=== PATIENT | male | born 1970 | race Caucasian/White ===

== ENCOUNTER 2023-01-16 09:40 | Outpatient (OUT) | payer BC, SELFPAY ==
[2023-01-16 10:02] LABS: Basophils Absolute Auto 0.1 10^3/uL (0.0-0.1); Basophils Percent Auto 1.2 % (0.2-2.0); Eosinophils Absolute Auto 0.2 10^3/uL (0.0-0.7); Eosinophils Percent Auto 4.6 % (0.9-7.0); Hematocrit 43.1 % (42.0-54.0); Hemoglobin 14.5 g/dL (14.0-18.0); Immature Granulocytes Abs Auto 0.01 10^3/uL (0.00-0.03); Immature Granulocytes Pct Auto 0.2 % (0.0-0.5); Lymphocytes Absolute Auto 1.2 10^3/uL (1.2-3.8); Lymphocytes Percent Auto 24.6 % (20.5-60.0); Mean Corpuscular HGB Conc 33.6 g/dL (29.9-35.2); Mean Corpuscular Hemoglobin 30.7 pg (25.9-34.0); Mean Corpuscular Volume 91.1 fL (80.0-94.0); Mean Platelet Volume 10.7 fL (9.5-13.5); Monocytes Absolute Auto 0.4 10^3/uL (0.3-0.8); Monocytes Percent Auto 7.4 % (1.7-12.0); Neutrophils Absolute Auto 3.1 10^3/uL (1.4-6.5); Platelet Count 215 10^3/uL (150-450); Red Blood Count 4.73 10^6/uL (4.70-6.10); Red Cell Distribution Width 13.3 % (11.0-15.0)
[2023-01-16 10:08] LABS: Estimated Average Glucose 103 mg/dL; Glycohemoglobin A1C 5.2 % (4.5-6.2)
[2023-01-16 10:54] LABS: Alanine Aminotransferase 82 U/L (16-63); Albumin Globulin Ratio 1.3; Albumin Level 4.4 g/dL (3.4-5.0); Alkaline Phosphatase 49 U/L (46-116); Anion Gap 15.6; Aspartate Amino Transferase 30 U/L (15-37); BUN Creatinine Ratio 17.2; Bilirubin Total 0.7 mg/dL (0.2-1.0); Calcium 8.9 mg/dL (8.5-10.1); Carbon Dioxide 26.4 mmol/L (21.0-32.0); Chloride 102 mmol/L (98-107); Chol HDL Ratio 6.2; Cholesterol 262 mg/dL (<=200); Estimated GFR (African America >60 (>=60); Estimated GFR (Non-African Ame >60 (>=60); Globulin 3.3 g/dL; Glucose 102 mg/dL (74-106); HDL Cholesterol 42 mg/dL (40-60); Sodium 140 mmol/L (136-145); Thyroid Stimulating Hormone 2.811 uIU/mL (0.358-3.740); Total Protein 7.7 g/dL (6.4-8.2); Triglycerides 236 mg/dL (<=150); VLDL CHOLESTEROL 47.2 mg/dL
[2023-01-16 11:00] LABS: Prostate Specific Antigen Scrn 2.86 ng/mL (<=4.00)
== END 2023-01-16 09:41 | disposition home or self-care (01) ==
LOC: LAB 09:46
PROVIDERS: PCP Family Medicine; Visit Provider Family Medicine
DX: Z00.00 Encounter for general adult medical examination without abnormal findings (principal)
CPT/HCPCS: 36415; 80053; 80061; 83036; 84436; 84443; 84481; 85025; G0103

== ENCOUNTER 2023-01-17 16:01 | Outpatient (REF) | payer BC, SELFPAY ==
[2023-01-18 14:14] LABS: Occult Blood Negative
== END 2023-01-17 16:02 | disposition home or self-care (01) ==
LOC: LAB 16:01
PROVIDERS: PCP Family Medicine; Visit Provider Family Medicine
DX: Z00.00 Encounter for general adult medical examination without abnormal findings (principal)
CPT/HCPCS: G0328

== ENCOUNTER 2023-08-03 14:39 | Outpatient (OUT) | payer BC, SELFPAY | END 2023-08-03 14:40 | disposition home or self-care (01) | LOC: PST 14:39 | PROVIDERS: PCP Family Medicine; Visit Provider Surgery | DX: Z01.818 Encounter for other preprocedural examination (principal); Z12.11 Encounter for screening for malignant neoplasm of colon ==

== ENCOUNTER 2023-08-09 09:10 | Day surgery (SDC) | payer BC, SELFPAY ==
--- NOTE | 2023-08-09 | OP_ITS ---
OPERATION DATE: 08/09/2023 PREOPERATIVE DIAGNOSIS: Colorectal screening. POSTOPERATIVE DIAGNOSIS: Normal colonoscopy to cecum. PROCEDURE: Colonoscopy to cecum. SURGEON: Álvaro Norris M.D. ANESTHESIA: Monitored anesthesia care. ESTIMATED BLOOD LOSS: Zero. INDICATIONS AND CONSENT: Patient is a 53-year-old male who presents for colorectal screening. Indications, risks, benefits, alternatives of proceeding with colonoscopy were explained extensively to the patient, including the risks of bleeding, colon perforation or anesthetic complications. All of his questions were answered. Informed consent was obtained. PROCEDURE: Patient brought to the operating room, placed in the left lateral decubitus position. Monitored anesthesia care was provided. Rectal exam was performed which showed no masses or blood. The scope was inserted into the anal canal. Under direct visualization was advanced. With the aid of abdominal compression, it was advanced to the cecum where cecal markings were clearly identified. There was noted to be a good prep. Upon withdrawal of the scope, mucosal surfaces were carefully examined. There were no mass lesions or polyps. No inflammatory changes or ulcerations. No significant diverticulosis. The scope was retroflexed in the anal canal. There were noted to be some prominent rectal veins. The scope was then withdrawn. Patient tolerated procedure well, was sent to recovery room in good condition. Follow up screening colonoscopy should be in 10 years. CC: Adelfo Garibay M.D. JONNY
[2023-08-09 09:15] VITALS: BP 128/92; PULSE 87; TEMP 35.9; O2SAT 97; BMI 32.1
--- OUTSIDE RECORDS SUMMARY | 2023-08-09 09:20 | XMS_ITS ---
Patient Summarization (C-CDA 2.1 CCD) Created on: August 09, 2023 KENNY DEL RIO : 1970 Sex: Male Author Organization Sample organization Care Team Providers Care Electronic Publications Specialist Name Role Phone Yolanda Olguin Primary Care Provider ENRIQUE THOMSON Referring Unavailable YOLANDA OLGUIN Primary Care Unavailable CASSANDRA SAAVEDRA Admitting Unavailable CASSANDRA SAAVEDRA Attending Unavailable JOSEFA, DR KIDD Consulting Unavailable CASSANDRA SAAVEDRA Consulting Unavailable Cathleen Miller Consulting Unavailable JUAN, DR COTE Admitting Unavailable JUAN, DR COTE Attending Unavailable JUAN, DR COTE Consulting Unavailable SHERIDAN, DR SYED Goodson Consulting Unavailable GREY, DR ARAVIND Goodson Admitting Unavailable GREY, DR ARAVIND Goodson Attending Unavailable GREY, DR ARAVIND Goodson Consulting Unavailable SHERIDAN, DR SYED Goodson Consulting Unavailable RYNE NEUMANN Consulting Unavailable YOLANDA OLGUIN Primary Care Physician Alyse Sanford Primary Care Physician Unavailab Alyse Black Unavailable Unavailable Adelfo Garibay Primary Care Physician Enrique SÁNCHEZ Attending Unavailable Adelfo Garibay Referring Unavailable Encounters Encounter Date Encounter Type Care Provider Facility Start: 06-21-2023 End: 06-22-2023 ambulatory Enrique SÁNCHEZ Facility:[facility] Start: 06-21-2023 End: 06-21-2023 Patient encounter procedure Enrique SÁNCHEZ [facility] Start: 06-01-2023 Office outpatient ne w 30 minutes Alyse Sanford Other [facility] Office Start: 05-18-2023 ambulatory Enrique SÁNCHEZ Facility:[facility] Start: 10-20-2021 End: 10-20-2021 Patient encounter procedure CLEO HEALY [facility] [place] Start: 07-08-2021 End: 07-08-2021 ambulatory CASSANDRA SAAVEDRA Facility:[facility] Start: 02-22-2021 End: 02-23-[address] KERA MARTINEZ Facility:[facility] Start: 02-17-2021 End: 02-17-[address] ARAVIND EDMONDS Facility:[facility] Start: 01-14-2019 End: 01-15-2019 Patient encounter procedure ENRIQUE THOMSON [facility] Start: 01-14-2019 End: 01-14-2019 Subsequent hospital visit by physician Yolanda SANTACRUZ Laboratory Immunizations Immunization Date Immunization Notes Care Provider Jay mcpherson 12-28-2022 influenza virus vaccine, unspecified formulation Enrique SÁNCHEZ [facility] 03-03-2021 SARS-CoV-2 (COVID-19 ) mRNA-1273 vaccine Enrique GONZALO [facility] 02-03-2021 SARS-CoV-2 (COVID-19 ) mRNA-1273 vaccine Enrique PATELMarley [facility] Comment on above: Result Comment: 2023: TPV50 Medications Current Medications Medication Drug Class(es) Dates Sig (Normalized) Sig (Original) acetaminophen 325 mg / HYDROcodone bitartrate 5 mg oral tablet (1 source) Opioid Agonist Start: 02-22-2021 acetaminophen-hyd rocodone 325 mg-5 mg oral tablet Refill(s) 0, 20 tab(s) Start Date: 02/22/21 Status: Ordered levoFLOXacin 750 mg oral tablet (1 source) Quinolone Antimicrobial Start: 02-22-2021 levofloxacin 750 mg Tab 7 tab(s), Refills(s) 0 Start Date: 02/22/21 Status: Ordered ondansetron 4 mg disintegrating oral tablet (1 source) Serotonin-3 Receptor Antagonist Start: 02-22-2021 ondansetron 4 mg Dis Tab 10 tab(s), Refills(s) 0 Start Date: 02/22/21 Status: Ordered 72 hr scopolamine 0.0139 mg/hr transdermal system (1 source) Anticholinergic Start: 03-02-2018 scopolamine (TRANSDERM-SCOP) transdermal patch Place 1 patch onto the skin every 72 hours 3 patch 0 03/02/2018 Active simvastatin 20 mg oral tablet (1 source) HMG-CoA Reductase Inhibitor Start: 05-22-2023 take 1 tablet by mouth once daily in the evening simvastatin 20 mg Tab 20 mg = 1 tab(s), Oral, qPM, Refills(s) 0 Start Date: 05/22/23 Status: Ordered tamsulosin hydrochloride 0.4 mg oral capsule (1 source) alpha-Adrenergic Amando Start: 02-22-2021 tamsulosin 0.4 mg Cap 5 cap(s), Refills(s) 0 Start Date: 02/22/21 Status: Ordered Completed/Discontinued Medications Medication Drug Class(es) Dates Sig (Normalized) Sig (Original) cholesterol medication (1 source) cholesterol medi cation 1 daily in evening Payers Date Payer Category Payer Unknown [id number] 2.16.84 [id number] 1970 Unknown [id number] 2.16.84 [id number] 1970 Unknown [id number] 2.16.84 [id number] 1970 Unknown [id number] 1959 Unknown [id number] 1959 Unknown [id number] Plan of Treatment Date Care Activity Detail Author Start: 11-04-2018 Influenza vaccination Flu vaccine (# 1) [place], [place] Start: 2010 Lipid screen Lipid screen [place], [place] Start: 1989 DTaP/Tdap/Td vaccine (1 - Tdap) DTaP/Tdap/Td vaccine (1 - Tdap) [place], [place] Start: 1985 HIV screen HIV screen [place], [place] End: 01-14-2019 Mumps Antibody, IgG Mumps Antibody, IgG Lab Routine Once for 1 Occurrences starting 01/14/2019 until 01/14/2019 [place] Comment on above: Once for 1 Occurrenc es starting 01/14/2019 until 01/14/2019 Mumps Antibody, IgG Mumps Antibo dy, IgG Lab Routine 01/14/2019 3:03 PM [place], [place] End: 01-14-2019 Rubeola Antibody, IgG Rubeola Antibody, IgG Lab Routine Once for 1 Occurrences starting 01/14/2019 until 01/14/2019 [place] Comment on above: Once for 1 Occurrenc es starting 01/14/2019 until 01/14/2019 Rubeola Antibody, IgG Rubeola An tibody, IgG Lab Routine 01/14/2019 3:03 PM [place] End: 01-14-2019 Tb antigen response gamma interferon t-cell susp T-Spot TB Test Lab Routine Once for 1 Occurrences starting 01/14/2019 until 01/14/2019 [place] Comment on above: Once for 1 Occurrenc es starting 01/14/2019 until 01/14/2019 Tb antigen response gamma interferon t-cell susp T-Spot TB Test Lab Routine 01/14/2019 3:03 PM [place] End: 01-14-2019 Varicella Zoster Antibody, IgG Varicella Zoster Antibody, IgG Lab Routine Once for 1 Occurrences starting 01/14/2019 until 01/14/2019 [place] Comment on above: Once for 1 Occurrenc es starting 01/14/2019 until 01/14/2019 Varicella Zoster Antibody, IgG Varicella Zoster Antibody, IgG Lab Routine 01/14/2019 3:03 PM [place] Problems Problem Classification Problem Date Documented Date Episodic/Chronic Abdominal pain (3 sources) Unspecified abdominal pain; Translations: [UNSPECIFIED ABDOMINAL PAIN] Onset: 07-08-2021 Episodic Allergic reactions (1 source) Other skin changes due to chronic exposure to nonionizing radiation Onset: 06-01-2023 Episodic Calculus of urinary tract (3 sources) Personal history of urinary calculi; Translations: [Kidney stone] Onset: 07-12-2021 02-22-2021 Episodic Disorders of lipid metabolism (3 sources) Hyperlipidemia; Translations: [Pure hypercholesterolemia, unspecified] Onset: 08-24-2015 08-24-2015 Chronic Hyperplasia of prostate (2 sources) Benign prostatic hypertrophy without outflow obstruction 02-22-2021 Chronic Other and unspecified benign neoplasm (1 source) Melanocytic nevi, unspecified Onset: 06-01-2023 Episodic Other diseases of kidney and ureters (4 sources) Hydronephrosis with renal and ureteral calculous obstruction; Translations: [HYDRONPHROS RENL AND URETRL CALCUL OBST] Onset: 02-22-2021 Episodic Other diseases of kidney and ureters (2 sources) Hydronephrosis 02-22-2021 Episodic Other nutritional; endocrine; and metabolic disorders (1 source) Body mass index 30+ - obesity 06-21-2023 Chronic Other nutritional; endocrine; and metabolic disorders (1 source) Obesity 05-22-2023 Chronic Other screening for suspected conditions (not mental disorders or infectious disease) (1 source) Screening for malignant neoplasm of colon done; Translations: [Encounter for screening for malignant neoplasm of colon] Onset: 06-21-2023 Episodic Other skin disorders (1 source) Other melanin hyperpigmentation Onset: 06-01-2023 Episodic Other skin disorders (1 source) Other seborrheic keratosis Onset: 06-01-2023 Episodic Unclassified (1 source) Patient encounter status 06-21-2023 Procedures Date Procedure Procedure Detail Performing Clinician Start: 01-14-2019 Antibody mumps ENRIQUE THOMSON Start: 01-14-2019 Antibody rubeola MICHAE Marley THOMSON Start: 01-14-2019 Antibody varicella-zoster ENRIQUE THOMSON Start: 01-14-2019 Immunoassay infectio us agent antibody delicia nos ENRIQUE THOMSON Start: 01-14-2019 Tb antigen response gamma interferon t-cell susp ENRIQUE THOMSON Start: 01-14-2019 Immunoassay infectio us agent antibody delicia nos Enrique Thomson Work Phone: Arthroscopy of knee Enrique SÁNCHEZ Tonsillectomy CLEO MONET Results Test Name Value Interpretation Reference Range Facility Insurance Correspondenceon 0 07-26-2023 Insurance Correspondence [id number]#[id number] TIFF Normal [facility] Consent for Procedure/Surger yon 06-22-2023 Consent for Procedure/Surgery [id number] IFF Normal [facility] Ambulatory Visit Summaryon 0 06-21-2023 Ambulatory Visit Summary KENNY DEL RIO :1970 Visit Date:06/21/2023 Ambulatory Visit Instructions Your Diagnosis Screening for malignant neoplasm of colon Your Care Team Attending Physician - GONZALO PERSON, Enrique Goodson Primary Care Physician - Lani PERSON, Adelfo Referring Physician - Adelfo Garibay MD This Is Your Medications List Contact prescribing physician if questions or concerns simvastatin (simvastatin 20 mg Tab) Procedures Performed Arthroscopy of knee, Tonsillectomy. Discharge Vitals Heart Rate (Peripheral) 76 Respiratory Rate 16 Blood Pressure 120/84 Height 182.8 cm Height 72 in Weight 112 kg Weight 246.4 lb BMI 33.52 Medications What How Much When Instructions Unchanged simvastatin (simvastatin 20 mg Tab) 1 Tablets By Mouth Once a day (in the evening) Contact prescribing physician if questions or concerns Allergies No Known Allergies Problems Ongoing - Any problem that you are currently receiving treatment for. BMI 33.0-33.9,adult BPH without urinary obstruction Kidney stone Obesity Pure hypercholesterolemia Screening for malignant neoplasm of colon Ureteral stone with hydronephrosis Patient Survey You may receive a survey via text or e-mail asking about your office visit. Please share your experience with us by completing your survey. We appreciate your feedback and thank you for choosing us for your care. Normal [facility] Facesheeton 06-21-2023 Facesheet [id number]#[id number] TIFF Normal [facility] No Panel Informationon 05-31 Tobacco smoking status Non-Smoker Invalid Interpretation Code [facility] Novasentis Physician Referralon 024 Physician Referral [id number] IFF Normal [facility] CBC AUTO DIFFon 07-08-2021 BASO # 0.1 103/ul Normal 0.0-0.1 [facility] Comment on above: Performed By: #### C BC ####[facility] [address] [place] [id number]. Jorge Dominguez Basophils/100 WBC (Bld) 0.5 % Normal 0.2-2.0 [facility] Comment on above: Performed By: #### C BC ####[facility] [address] [place] [id number]. Jorge Dominguez EO # 0.1 103/ul Normal 0.0-0.7 [facility] Comment on above: Performed By: #### C BC ####[facility] [address] [place] [id number]. Jorge Dominguez Eosinophils/100 WBC (Bld) 0.9 % Normal 0.9-7.0 [facility] Comment on above: Performed By: #### C BC ####[facility] [address] [place], [place] [address]Dr. Jorge Dominguez Erythrocyte distribution width (RBC) [Ratio] 13.0 % Normal 11.0-15.0 [facility] Comment on above: Performed By: #### C BC ####[facility] [address] [place], [place] [id number]. Jorge Dominguez Hematocrit (Bld) [Volume fraction] 43.4 % Normal 42.0-54.0 [facility] Comment on above: Performed By: #### C BC ####[facility] [address] [place], [place] [id number]. Jorge Dominguez Hemoglobin (Bld) [Mass/Vol] 14.9 g/dL Normal 14.0-18.0 [facility] Comment on above: Performed By: #### C BC ####[facility] [address] [place] [id number]. Jorge Dominguez IG # 0.04 10e3/ul Critically high 0.00-0.[address] [facility] Comment on above: Performed By: #### C BC ####[facility] [address] [place], [place] [address]Dr. Jorge Dominguez IG % 0.4 % Normal 0.0-0.5 [facility] Comment on above: Performed By: #### C BC ####[facility] [address] [place] [id number]. Jorge Dominguez LYMPH # 1.0 103/ul Critically low 1.2-3.[address] [facility] Comment on above: Performed By: #### C BC ####[facility] [address] [place] [id number]. Jorge Dominguez Lymphocytes/100 WBC (Bld) 9.1 % Critically low 20.5-60.0 [facility] Comment on above: Performed By: #### C BC ####[facility] [address] [place] [id number]. Jorge Dominguez MANUAL DIFF REQ NO Normal [facility] Comment on above: Performed By: #### C BC ####[facility] [address] [place] [id number]. Jorge Dominguez MCH (RBC) [Entitic mass] 30.8 pg Normal 25.9-34.0 [facility] Comment on above: Performed By: #### C BC ####[facility] [address] [place] [id number]. Jorge Dominguez MCHC (RBC) [Mass/Vol] 34.3 g/dL Normal 29.9-35.2 [facility] Comment on above: Performed By: #### C BC ####[facility] [address] [place] [id number] Dominguez MCV (RBC) [Entitic vol] 89.7 fL Normal 80.0-94.0 [facility] Comment on above: Performed By: #### C BC ####[facility] [address] [place] [id number] Dominguez MONO # 0.4 103/ul Normal 0.3-0.8 [facility] Comment on above: Performed By: #### C BC ####[facility] [address] [place] [id number]. Jorge Dominguez Monocytes/100 WBC (Bld) 4.1 % Normal 1.7-12.0 [facility] Comment on above: Performed By: #### C BC ####[facility] [address] [place] [id number]. Jorge Dominguez NEUT # 9.0 103/ul Critically high 1.4-6.5 [facility] Comment on above: Performed By: #### C BC ####[facility] [address] [place] [id number]. Jorge Dominguez Neutrophils/100 WBC (Bld) 85.0 % Critically high 43.0-75.0 [facility] Comment on above: Performed By: #### C BC ####[facility] [address] [place] [address]Dr. Jorge Dominguez Platelet mean volume (Bld) [Entitic vol] 10.8 fL Normal 9.5-13.5 [facility] Comment on above: Performed By: #### C BC ####[facility] [address] [place] [address]Dr. Jorge Dominguez PLT 210 103/ul Normal 150-450 [facility] Comment on above: Performed By: #### C BC ####[facility] [address] [place] [id number]. Jorge Dominguez RBC 4.84 106/ul Normal 4.70-6.10 [facility] Comment on above: Performed By: #### C BC ####[facility] [address] [place], [place] [address]Dr. Jorge Dominguez WBC 10.6 103/ul Normal 4.0-11.0 [facility] Comment on above: Performed By: #### C BC ####[facility] [address] [place], [place] [address]Dr. Jorge Dominguez CT ABD/PELVIS WO CONon 07-08 CT ABD/PELVIS WO CON CT ABD/PELVIS WO CO N: 07/08/2021 4:29 AM EDT CLINICAL HISTORY: 51 years old Male with CALCULUS OF KIDNEY. TECHNIQUE: Axial CT images through the abdomen and pelvis are obtained without the intravenous administration of contrast. Coronal and sagittal reformations are also obtained. Dose reduction techniques were achieved by using automated exposure control and/or adjustment of mA and/or kV according to patient size and/or use of iterative reconstruction technique. COMPARISON: CT performed 02/17/2021. FINDINGS: The lung bases are clear with no dependent infiltrate or effusion. Without the use of IV or oral contrast the study is limited by incomplete evaluation of the blood vessels, solid visceral organs and bowel. The liver, spleen, pancreas and bilateral adrenal glands are unremarkable. 6 mm cholelith is present at the gallbladder neck with the gallbladder nondistended. No intrahepatic or extra hepatic biliary ductal dilatation. 3 mm nonobstructing right renal calculus is present. There is no right hydronephrosis. The right ureter is normal in course and caliber without calculus or dilatation. A few punctate nonobstructing left renal calculi are present with mild left hydronephrosis with significant perinephric stranding and stranding about the right ureter and retroperitoneum with 3 mm calculus at the left ureterovesicular junction. The stomach and small bowel are unremarkable. The appendix is visualized without inflammatory change. The colon is unremarkable. Fat-containing periumbilical hernia is present. The bladder appears unremarkable. There is no evidence of aortic aneurysm. No enlarged lymph nodes are seen. No free air or free fluid is seen. The prostate gland is within normal limits. The osseous structures appear unremarkable. IMPRESSION: 1. Bilateral nonobstructing renal calculi with mild left hydronephrosis with significant periureteral stranding and retroperitoneal stranding with 3 mm obstructing calculus at the ureterovesicular junction. 2. Cholelithiasis without evidence of acute cholecystitis. Electronically authenticated by: CATHLEEN MILLER Date: 2021-07-08 05:16 Normal [facility] ER URINE PROFILEon 2 Bilirubin Ql (U) Negative Normal NEGATIVE [facility] Comment on above: Performed By: #### U MICRO, ERUR #### [facility] [address] [address] [address] Jorge Dominguez Clarity (U) CLEAR Normal CLEAR [facility] Comment on above: Performed By: #### U MICRO, ERUR #### [facility] [address] [place], [place] [address] Dr. Jorge Dominguez Color (U) LT. YELLOW Normal YELLOW [facility] Comment on above: Performed By: #### U MICRO, ERUR #### [facility] [address] [address] [address] Jorge MURRAY A micrscopic examination will be performed if indicated. Normal [facility] Comment on above: Performed By: #### U MICRO, ERUR #### [facility] [address] [address] [address] Jorge Dominguez Glucose Ql (U) Negative Normal NEGATIVE [facility] Comment on above: Performed By: #### U MICRO, ERUR #### [facility] [address] [address] [address] Jorge Dominguez Hemoglobin Ql (U) LARGE Abnormal NEGATIVE [facility] Comment on above: Performed By: #### U MICRO, ERUR #### [facility] [address] [address] [address] Jorge Dominguez Ketones Ql (U) TRACE Abnormal NEGATIVE [facility] Comment on above: Performed By: #### U MICRO, ERUR #### [facility] [address] [address] [address] Jorge Dominguez LEUKOCYTES Negative Normal NEGATIVE [facility] Comment on above: Performed By: #### U MICRO, ERUR #### [facility] [address] [address] [address] Jorge Dominguez Nitrite Ql (U) Negative Normal NEGATIVE [facility] Comment on above: Performed By: #### U MICRO, ERUR #### [facility] [address] [address] [address] Jorge Dominguez pH (U) 5.5 [pH] Normal 5-9 [facility] Comment on above: Performed By: #### U MICRO, ERUR #### [facility] [address] [address] [address] Jorge Dominguez SPEC GRAVITY >=1.030 Abnormal 1.005-<=1.02 5 [facility] Comment on above: Performed By: #### U MICRO, ERUR #### [facility] [address] [address] [address] Jorge Dominguez UA PROTEIN Negative Normal NEGATIVE/ TRACE [facility] Comment on above: Performed By: #### U MICRO, ERUR #### [facility] [address] [place] [address] Dr. Jorge Dominguez UR MICRO IND INDICATED Normal [facility] Comment on above: Performed By: #### U MICRO, ERUR #### [facility] [address] [place] [address] Dr. Jorge Dominguez Urobilinogen Qn (U) 0.2 {Julee'U}/dL Normal 0.2 - 1. 0 [facility] Comment on above: Performed By: #### U MICRO, ERUR #### [facility] [address] [place] [address] Dr. Jorge Dominguez LACTATE/LACTIC ACIDon 2021 Lactate [Moles/Vol] 2.1 mmol/L Critically high 0.4-2.0 [facility] Comment on above: Performed By: #### L ACT #### [facility] [address] [place] [address] Dr. Jorge Dominguez Lactate [Moles/Vol] 1.7 mmol/L Normal 0.4-2.0 [facility] Comment on above: Performed By: #### L ACT #### [facility] [address] [place] [address] Dr. Jorge Dominguez PROF CHEM 8 (BAS METB)on Anion gap [Moles/Vol] 13.8 mmol/L Normal [facility] Comment on above: Performed By: #### B MP #### [facility] [address] [place] [address] Dr. Jorge Dominguez Calcium [Mass/Vol] 9.4 mg/dL Normal 8.5-10.1 [facility] Comment on above: Performed By: #### B MP #### [facility] [address] [place] [address] Dr. Jorge Dmoinguez Chloride [Moles/Vol] 104 mmol/L Normal 98-107 [facility] Comment on above: Performed By: #### B MP #### [facility] [address] [place] [address] Dr. Jorge Dominguez CO2 [Moles/Vol] 24.3 mmol/L Normal 21.0-32.0 [facility] Comment on above: Performed By: #### B MP #### [facility] [address] [address] [address] Jorge Dominguez Creatinine [Mass/Vol] 1.32 mg/dL Critically high 0.70-1.30 [facility] Comment on above: Performed By: #### B MP #### [facility] [address] [address] [address] Jorge Dominguez EGFR-AF TANZANIAN >60 Normal >=60 [facility] Comment on above: Performed By: #### B MP #### [facility] [address] [address] [address] Jorge Dominguez EGFR-NON AF TANZANIAN 57 mL/min/1.73m2 Critically low >=60 [facility] Comment on above: Performed By: #### B MP #### [facility] [address] [address] [address] Jorge Dominguez Glucose [Mass/Vol] 166 mg/dL Critically high 74-106 [facility] Comment on above: Performed By: #### B MP #### [facility] [address] [address] [address] Jorge Dominguez Potassium [Moles/Vol] 4.1 mmol/L Normal 3.5-5.1 [facility] Comment on above: Performed By: #### B MP #### [facility] [address] [address] [address] Jorge Dominguez Sodium [Moles/Vol] 138 mmol/L Normal 136-145 [facility] Comment on above: Performed By: #### B MP #### [facility] [address] [address] [address] Jorge Dominguez Urea nitrogen [Mass/Vol] 16.0 mg/dL Normal 7.0-18.0 [facility] Comment on above: Performed By: #### B MP #### [facility] [address] [address] [address] Jorge Dominguez Urea nitrogen/Creatinine [Mass ratio] 12.1 mg/mg Normal [facility] Comment on above: Performed By: #### B MP #### [facility] [address] [place] [address] Dr. Jorge Dominguez URINE MICROSCOPIC ONLYon BACTERIA TRACE Abnormal NONE SEEN [facility] Comment on above: Performed By: #### U MICRO, ERUR #### [facility] [address] [place] [address] Dr. Jorge Dominguez Bacteria identified Cx Nom (U) NOT INDICATED Normal [facility] Comment on above: Performed By: #### U MICRO, ERUR #### [facility] [address] [place] [address] Dr. Jorge Dominguez CAST NONE SEEN Normal NONE SEEN [facility] Comment on above: Performed By: #### U MICRO, ERUR #### [facility] [address] [place] [address] Dr. Jorge Dominguez Crystals LM Nom (Urine sed) NONE SEEN Normal NONE SEEN [facility] Comment on above: Performed By: #### U MICRO, ERUR #### [facility] [address] [place] [address] Dr. Jorge Dominguez Epithelial cells LM Ql (Urine sed) FEW Abnormal NONE SEEN /RARE [facility] Comment on above: Performed By: #### U MICRO, ERUR #### [facility] [address] [place] [address] Dr. Jorge Dominguez MUCOUS TRACE Abnormal NONE SEEN [facility] Comment on above: Performed By: #### U MICRO, ERUR #### [facility] [address] [place] [address] Dr. Jorge Dominguez RBC 5-10 Abnormal 0-2 [facility] Comment on above: Performed By: #### U MICRO, ERUR #### [facility] [address] [place] [address] Dr. Jorge Dominguez WBC 0-2 Abnormal NONE SEEN [facility] Comment on above: Performed By: #### U MICRO, ERUR #### [facility] [address] [place] [address] Dr. Jorge Dominguez PSA SCREENING LABCORPon 02-04 Prostate specific Ag [Mass/Vol] 2.4 ng/mL Normal 0.0-4.0 [facility] Comment on above: Result Comment: Nhi GUTIERREZ methodology. . According to the [employer], Serum PSA should decrease and remain at undetectable levels after radical prostatectomy. The AUA defines biochemical recurrence as an initial PSA value 0.2 ng/mL or greater followed by a subsequent confirmatory PSA value 0.2 ng/mL or greater. Values obtained with different assay methods or kits cannot be used interchangeably. Results cannot be interpreted as absolute evidence of the presence or absence of malignant disease. Performed By: #### P SASCLC ####[facility] [id number] [place] [id number] Dominguez XR KUB 1 VIEWon 02-22-2021 XR KUB 1 VIEW EXAMINATION: XR KUB 1 VIEW HISTORY: Kidney stone ; acute right lower abdominal pain COMPARISON: CT abdomen pelvis 02/17/2021 FINDINGS: KIDNEY/URETER - RIGHT: No visible renal or ureteral calcifications. KIDNEY/URETER - LEFT: No visible renal or ureteral calcifications. PELVIS: No visible ureteral stones. No pelvic calcifications. BOWEL: No abnormal dilation or deviation. BONES: No acute abnormality. OTHER: Negative. No abnormal gaseous collections. IMPRESSION: 1. No appreciable urinary tract calculi. Suspect passage of previously seen distal right ureteral stone. Electronically authenticated by: SYED SWARTZ Date: 2021-02-22 16:11 Normal [facility] AMYLASEon 02-17-2021 Amylase [Catalytic activity/Vol] 65 U/L Normal 31-110 [facility] Comment on above: Performed By: #### L IPA, WILLA ####[facility] [id number] [place] [id number] Dominguez CBC AUTO DIFFon 02-17-2021 BASO # 0.1 103/ul Normal 0.0-0.1 [facility] Comment on above: Performed By: #### C BC #### [facility] [address] [place], [place] [address] Dr. Jorge Dominguez Basophils/100 WBC (Bld) 0.6 % Normal 0.2-2.0 [facility] Comment on above: Performed By: #### C BC #### [facility] [address] [place] [address] Dr. Jorge Dominguez EO # 0.3 103/ul Normal 0.0-0.7 [facility] Comment on above: Performed By: #### C BC #### [facility] [address] [place] [address] Dr. Jorge Dominguez Eosinophils/100 WBC (Bld) 3.9 % Normal 0.9-7.0 [facility] Comment on above: Performed By: #### C BC #### [facility] [address] [place] [address] Dr. Jorge Dominguez Erythrocyte distribution width (RBC) [Ratio] 13.1 % Normal 11.0-15.0 [facility] Comment on above: Performed By: #### C BC #### [facility] [address] [place] [address] Dr. Jorge Dominguez Hematocrit (Bld) [Volume fraction] 43.3 % Normal 42.0-54.0 [facility] Comment on above: Performed By: #### C BC #### [facility] [address] [place] [address] Dr. Jorge Dominguez Hemoglobin (Bld) [Mass/Vol] 14.7 g/dL Normal 14.0-18.0 [facility] Comment on above: Performed By: #### C BC #### [facility] [address] [place] [address] Dr. Jorge Dominguez IG # 0.03 10e3/ul Normal 0.00-0.03 [facility] Comment on above: Performed By: #### C BC #### [facility] [address] [place] [address] Dr. Jorge Dominguez IG % 0.4 % Normal 0.0-0.5 [facility] Comment on above: Performed By: #### C BC #### [facility] [address] [place] [address] Dr. Jorge Dominguez LYMPH # 1.2 103/ul Normal 1.2-3.8 [facility] Comment on above: Performed By: #### C BC #### [facility] [address] [place] [address] [address] Jorge Dominguez Lymphocytes/100 WBC (Bld) 14.8 % Critically low 20.5-60.0 [facility] Comment on above: Performed By: #### C BC #### [facility] [address] [address] [address] Jorge Dominguez MANUAL DIFF REQ NO Normal [facility] Comment on above: Performed By: #### C BC #### [facility] [address] [place] [address] Dr. Jorge Dominguez MCH (RBC) [Entitic mass] 30.6 pg Normal 25.9-34.0 [facility] Comment on above: Performed By: #### C BC #### [facility] [address] [place] [address] Dr. Jorge Dominguez MCHC (RBC) [Mass/Vol] 33.9 g/dL Normal 29.9-35.2 [facility] Comment on above: Performed By: #### C BC #### [facility] [address] [place] [address] Dr. Jorge Dominguez MCV (RBC) [Entitic vol] 90.0 fL Normal 80.0-94.0 [facility] Comment on above: Performed By: #### C BC #### [facility] [address] [place] [address] Dr. Jorge Dominguez MONO # 0.5 103/ul Normal 0.3-0.8 [facility] Comment on above: Performed By: #### C BC #### [facility] [address] [place] [address] Dr. Jorge Dominguez Monocytes/100 WBC (Bld) 6.1 % Normal 1.7-12.0 [facility] Comment on above: Performed By: #### C BC #### [facility] [address] [place] [address] Dr. Jorge Dominguez NEUT # 6.2 103/ul Normal 1.4-6.5 [facility] Comment on above: Performed By: #### C BC #### [facility] [address] [place] [address] Dr. Jorge Dominguez Neutrophils/100 WBC (Bld) 74.2 % Normal 43.0-75.0 [facility] Comment on above: Performed By: #### C BC #### [facility] [address] [place] [address] Dr. Jorge Dominguez Platelet mean volume (Bld) [Entitic vol] 10.8 fL Normal 9.5-13.5 [facility] Comment on above: Performed By: #### C BC #### [facility] [address] [place] [address] Dr. Jorge Dominguez PLT 230 103/ul Normal 150-450 [facility] Comment on above: Performed By: #### C BC #### [facility] [address] [place] [address] Dr. Jorge Dominguez RBC 4.81 106/ul Normal 4.70-6.10 [facility] Comment on above: Performed By: #### C BC #### [facility] [address] [place] [address] Dr. Jorge Dominguez WBC 8.4 103/ul Normal 4.0-11.0 [facility] Comment on above: Performed By: #### C BC #### [facility] [address] [place] [address] ABD/PELV W CONon 15-[address] ABD/PELV W CON EXAMINATION: CT ABD/PELV W CON HISTORY: ABDOMINAL DISTENSION (GASEOUS) ; right lower quadrant pain COMPARISON: No relevant comparison available. TECHNIQUE: Axial, Coronal, and Sagittal images were created with IV contrast. Dose reduction techniques were achieved by using automated exposure control and/or adjustment of mA and/or kV according to patient size and/or use of iterative reconstruction technique. FINDINGS: LUNG BASES: No visible pulmonary or pleural disease. LIVER: No enlargement, atrophy, abnormal density, or significant focal lesion. BILIARY: Small stone within the noninflamed gallbladder. PANCREAS: No lesion, fluid collection, ductal dilatation, or atrophy. SPLEEN: No enlargement or focal lesion. ADRENALS: No mass or enlargement. KIDNEYS: Right hydronephrosis with perinephric edema secondary to an obstructing 6 x 5 x 4 mm stone within distal ureter at the ureterovesical junction. Additional nonobstructing 2 mm stone within right kidney. BOWEL/MESENTERY: No bowel wall thickening, abnormal dilation, or obstruction. Normal appendix. AORTA/VASCULAR: No aneurysm or dissection. RETROPERITONEUM: No mass or adenopathy. LYMPH NODES: No adenopathy. URINARY BLADDER: No visible focal wall thickening, lesion, or calculus. PELVIC ORGANS: No visible mass. Pelvic organs appropriate for patient age. ABDOMINAL WALL: No mass or hernia. BONES: No bony lesion or fracture. OTHER: Negative. IMPRESSION: 1. Obstructing 6 x 5 x 4 mm stone within distal right ureter at the ureterovesical junction causing moderate right hydronephrosis which appears to have decompressed into the perinephric space. 2. Cholelithiasis. Electronically authenticated by: SYED SWARTZ Date: 2021-02-17 07:38 Normal [facility] ER URINE PROFILEon 1 Bilirubin Ql (U) Negative Normal NEGATIVE [facility] Comment on above: Performed By: #### E RUR #### [facility] [address] [place] [address] Dr. Jorge Dominguez Clarity (U) CLEAR Normal CLEAR [facility] Comment on above: Performed By: #### E RUR #### [facility] [address] [place] [address] Dr. Jorge Dominguez Color (U) LT. YELLOW Normal YELLOW [facility] Comment on above: Performed By: #### E RUR #### [facility] [address] [place] [address] Dr. Jorge Dominguez ERUAHD A micrscopic examination will be performed if indicated. Normal [facility] Comment on above: Performed By: #### E RUR #### [facility] [address] [place] [address] Dr. Jorge Dominguez Glucose Ql (U) Negative Normal NEGATIVE [facility] Comment on above: Performed By: #### E RUR #### [facility] [address] [place] [address] Dr. Jorge Dominguez Hemoglobin Ql (U) Negative Normal NEGATIVE [facility] Comment on above: Performed By: #### E RUR #### [facility] [address] [place] [address] Dr. Jorge Dominguez Ketones Ql (U) Negative Normal NEGATIVE [facility] Comment on above: Performed By: #### E RUR #### [facility] [address] [place] [address] Dr. Jorge Dominguez LEUKOCYTES Negative Normal NEGATIVE [facility] Comment on above: Performed By: #### E RUR #### [facility] [address] [place] [address] Dr. Jorge Dominguez Nitrite Ql (U) Negative Normal NEGATIVE [facility] Comment on above: Performed By: #### E RUR #### [facility] [address] [place] [address] Dr. Jorge Dominguez pH (U) 7.0 [pH] Normal 5-9 [facility] Comment on above: Performed By: #### E RUR #### [facility] [address] [place] [address] Dr. Jorge Dominguez SPEC GRAVITY 1.020 Normal 1.005-<=1.02 5 [facility] Comment on above: Performed By: #### E RUR #### [facility] [address] [place] [address] Dr. Jorge Dominguez UA PROTEIN Negative Normal NEGATIVE/ TRACE [facility] Comment on above: Performed By: #### E RUR #### [facility] [address] [place] [address] Dr. Jorge Dominguez UR MICRO IND NOT INDICATED Normal [facility] Comment on above: Performed By: #### E RUR #### [facility] [address] [place] [address] Dr. Jorge Dominguez Urobilinogen Qn (U) 0.2 {Julee'U}/dL Normal 0.2 - 1. 0 [facility] Comment on above: Performed By: #### E RUR #### [facility] [address] [place] [address] Dr. Jorge Dominguez LIPASEon 02-17-2021 Lipase [Catalytic activity/Vol] 102.0 U/L Normal 23.0-300.0 [facility] Comment on above: Performed By: #### L CARMEN, WILLA ####[facility] [id number] [place] [address]Dr. Jorge Dominguez PROF 14(COMP METB)on 021 Albumin [Mass/Vol] 4.3 g/dL Normal 3.5-5.0 [facility] Comment on above: Performed By: #### C MP #### [facility] [address] [place] [address] [address] Jorge Dominguez Albumin/Globulin [Mass ratio] 1.2 {ratio} Normal [facility] Comment on above: Performed By: #### C MP #### [facility] [address] [place] [address] [address] Jorge Dominguez ALP [Catalytic activity/Vol] 54 U/L Normal 38-126 [facility] Comment on above: Performed By: #### C MP #### [facility] [address] [place] [address] [address] Jorge Dominguez ALT [Catalytic activity/Vol] 93 U/L Critically high 21-72 [facility] Comment on above: Performed By: #### C MP #### [facility] [address] [place] [address] [address] Jorge Dominguez Anion gap [Moles/Vol] 14.7 mmol/L Normal [facility] Comment on above: Performed By: #### C MP #### [facility] [address] [place] [address] [address] Jorge Dominguez AST [Catalytic activity/Vol] 36 U/L Normal 17-59 [facility] Comment on above: Performed By: #### C MP #### [facility] [address] [id number] [address] Jorge Dominguez Bilirubin [Mass/Vol] 0.6 mg/dL Normal 0.2-1.3 [facility] Comment on above: Performed By: #### C MP #### [facility] [address] [place] [address] [address] Jorge Dominguez Calcium [Mass/Vol] 9.4 mg/dL Normal 8.4-10.2 [facility] Comment on above: Performed By: #### C MP #### [facility] [address] [place] [address] [address] Jorge Dominguez Chloride [Moles/Vol] 103 mmol/L Normal 98-107 [facility] Comment on above: Performed By: #### C MP #### [facility] [address] [place] [address] [address] Jorge Dominguez CO2 [Moles/Vol] 26.2 mmol/L Normal 22.0-30.0 [facility] Comment on above: Performed By: #### C MP #### [facility] [address] [address] [address] Jorge Dominguez Creatinine [Mass/Vol] 1.24 mg/dL Normal 0.66-1.25 [facility] Comment on above: Performed By: #### C MP #### [facility] [address] [place] [address] Dr. Jorge Dominguez EGFR-AF TANZANIAN >60 Normal >=60 [facility] Comment on above: Performed By: #### C MP #### [facility] [address] [place] [address] [address] Jorge Dominguez EGFR-NON AF TANZANIAN >60 Normal >=60 [facility] Comment on above: Performed By: #### C MP #### [facility] [address] [place] [address] [address] Jorge Dominguez Globulin (S) [Mass/Vol] 3.5 g/dL Normal [facility] Comment on above: Performed By: #### C MP #### [facility] [address] [place] [address] [address] Jorge Dominguez Glucose [Mass/Vol] 160 mg/dL Critically high 74-106 [facility] Comment on above: Performed By: #### C MP #### [facility] [address] [place] [address] Dr. Jorge Dominguez Potassium [Moles/Vol] 3.9 mmol/L Normal 3.4-5.0 [facility] Comment on above: Performed By: #### C MP #### [facility] [address] [place] [address] [address] Jorge Dominguez Protein [Mass/Vol] 7.8 g/dL Normal 6.1-8.2 [facility] Comment on above: Performed By: #### C MP #### [facility] [address] [place] [address] [address] Jorge Dominguez Sodium [Moles/Vol] 140 mmol/L Normal 137-145 [facility] Comment on above: Performed By: #### C MP #### [facility] [address] [address] [address] Jorge Dominguez Urea nitrogen [Mass/Vol] 13.0 mg/dL Normal 9.0-20.0 [facility] Comment on above: Performed By: #### C MP #### [facility] [address] [place] [address] [address] Jorge Dominguez Urea nitrogen/Creatinine [Mass ratio] 10.5 mg/mg Normal [facility] Comment on above: Performed By: #### C MP #### [facility] [address] [place] [address] [address] Jorge Dominguez T-Spoton 01-18-2019 T-Spot. TB Test Normal [facility] Comment on above: Result Comment: [facility] [address] [place] [address] (NOTE) T-SPOT.TB Test Results --------- T-SPOT TB Negative Normal Value: Negative A negative test result does not exclude the possibility of exposure to or infection with Mycobacterium tuberculosis (M tuberculosis). Patients with recent exposure to TB infected individuals exhibiting a negative T-SPOT.TB result should be considered for retesting within 6 weeks or if other relevant clinical symptoms indicate. Results from T-SPOT.TB testing must be used in conjunction with each individual's epidemiological history, current medical status, and results of other diagnostic evaluations. The T-SPOT.TB test is qualitative and results are reported as positive, borderline or negative, given that the test controls perform as expected. In line with the Centers for Disease Control and Prevention's 2010 recommendation to report quantitative measurements alongside the qualitative result, the laboratory provides spot counts for information purposes only. The T-SPOT.TB test should be interpreted as a quantitative test. Panel A Spot Count (Corrected for Negative Control) 0 Panel B Spot Count (Corrected for Negative Control) 2 Negative Control Passed Positive Control Passed Performed By: #### R UBI, JOSEY, RADHA, VZI, TSPOT #### [address] [id number] Lead Recreation Assistant: Santy Armstrong MD Measles (Rubeola) Imon 01-16 Measles (Rubeola) Im 5.30 Normal >1.09 [facility] Comment on above: Result Comment: Interpretation: IMMUNE Reference Range: <0.91 Not Immune 0.91-1.09 Equivocal >1.09 Immune Performed By: #### R UBI, JOSEY, RADHA, VZI, TSPOT #### [place] [id number] Lead Recreation Assistant: Santy Armstrong MD Mumps,Immun,Abon 01-16-2019 Mumps,Immun,Ab 0.83 Low >1.09 [facility] Comment on above: Result Comment: Interpretation: Not Immune Reference Range: <0.91 Not Immune 0.91-1.09 Equivocal >1.09 Immune Performed By: #### R UBI, JOSEY, RADHA, VZI, TSPOT #### [address] [address] Lead Recreation Assistant: Santy Armstrong MD VZ Immunityon 01-16-2019 VZ Immunity 1.15 Normal >1.09 [facility] Comment on above: Result Comment: Interpretation: IMMUNE Reference Range: <0.91 Not Immune 0.91-1.09 Equivocal >1.09 Immune Performed By: #### R UBI, JOSEY, RADHA, VZI, TSPOT #### [place] [id number] Lead Recreation Assistant: Santy Armtsrong MD Rubella Ab, IgGon 01-14-2019 Rubella Ab, IgG 43.3 IU/mL Normal [facility] Comment on above: Result Comment: REFERENCE RANGE: <5.0 NON-REACTIVE (non-immune) 5.0 TO 9.9 EQUIVOCAL >=10.0 REACTIVE (immune) Performed By: #### R UBI, JOSEY, RADHA, VZI, TSPOT #### [employer] [place] [address] Lead Recreation Assistant: Santy Armstrong MD Rubella antibody, IgGon 01-04 Rubella virus IgG Ql (S) 43.3 IU/mL [place], [place] Comment on above: REFERENCE RANGE: <5.0 NON-REACTIVE (non-immune) 5.0 TO 9.9 EQUIVOCAL >=10.0 REACTIVE (immune) Social History Date Type Detail Facility Start: 06-21-2023 Tobacco smoking status Occasional tobacco smoker (finding) [facility] [place] Start: 02-22-2021 Light tobacco smoker (finding) [facility] [place] Start: 05-21-2014 Tobacco smoking status NHIS Never smoker [place], [place] Start: 05-21-2014 Alcohol intake Current non-dr belt changer of alcohol (finding) [place], [place] Start: *Tobacco OrellanaHumedica Sex Assigned At Not on file [place], [place] Male [facility] [place] Tobacco smoking status Never [facility] [place] Vital Signs Date Time Vital Sign Value Performing Clinician Donavan cole 06-21-2023 13:17-0400 Blood Pressure Location Enrique SÁNCHEZ [facility] [place] 06-21-2023 13:17-0400 Diastolic blood pressure 84 mm[Hg] Enrique SÁNCHEZ [facility] [place] 06-21-2023 13:17-0400 Heart rate 76 /min Enrique SÁNCHEZ [facility] [place] 06-21-2023 13:17-0400 Respiratory rate 16 /min Enrique SÁNCHEZ [facility] [place] 06-21-2023 13:17-0406 Systolic blood pressure 120 mm[Hg] Enrique SÁNCHEZ [facility] [place] Functional Status Date Assessment Result Facility 06-21-2023 Functional Status N/A [facility] Clinical Note 06-21-2023 Note Date & Type Note Facility 06-21-2023 Note Chief Complaint consultation for colonoscopy HPI Staff 53 year old male presents on consultation from Dr. Garibay for screening colonoscopy. Denies abdominal or rectal pain. No rectal bleeding or change in bowel habits. Denies nausea or vomiting. No unexplained weight loss. Never had colonoscopy in the past. No known family history of colon cancer. History of Present Illness 53 yo male with h/o hypercholesterolemia, referred for colorectal screening; denies change in bms or blood in stools; no abdominal complaints; denies asa or NSAID use, no SBE prophylaxis; no abdominal operations or previous colonoscopy; no fmhx of GI malignancy or IBD; smokes cigars occasionally. Review of Systems PHQ Score Initial Depression Screen Score: 0 SCORE ROS - Provider Constitutional: no fever, no sweats, no weight loss. Eyes: no glasses, no blurred vision, no visual loss. ENMT: no dentures, no hoarseness, no swallowing difficulties, no hearing loss, no ear infection(s), no nose bleeds. Cardiovascular: normal blood pressure, no chest pain, regular heartbeat, no heart murmur. Respiratory: no shortness of breath, no cough, no asthma, no wheezing. Gastrointestinal: no nausea, no vomiting, no diarrhea, no constipation, no blood in stool, no change in bowel habits, no abdominal pain, no hepatitis. Genitourinary: no kidney stones, no urine infection, no dysuria. Musculoskeletal: no pain, no weakness. Skin: no changing moles, no rash, no skin lumps. Neurologic: no seizures, no epilepsy, no headache. Psychiatric: no emotional or psychiatric problem. Heme/Lymph: no bleeding problems, no anemia, no blood clots, no transfusions. Allergy/Immunologic: no swollen lymph nodes/glands, no IV drug abuse. Other: Additional ROS info: Except as noted in the above Review of Systems and in the History of Present Illness, all other systems have been reviewed and are negative or noncontributory. Physical Exam Vitals & Measurements HR: 76(Peripheral) RR: 16 BP: 120/84 HT: 72 in HT: 182.8 cm WT: 112 kg WT: 246.4 lb BMI: 33.52 HEENT: normal conjunctiva, sclera clear, no scleral icterus, EOM intact, PERRLA, oral mucosa moist without lesions. Neck: trachea midline, no mass, symmetric, no thyromegaly or nodules, no adenopathy Respiratory: lungs CTA, respirations non labored. Cardiovascular: regular rate and rhythm, no murmur, no pedal edema or varicosities. Gastrointestinal: soft, non distended, no tenderness, no masses, no palpable hernias, diastasis recti no, no hepatosplenomegaly; normal bs Lymphatic: no cervical adenopathy, no supraclavicular adenopathy. Musculoskeletal: normal gait, digits and nails without infection, nodes, cyanosis, clubbing. Skin: no rashes, no lesions, no ulcers, no subcutaneous nodules, induration. Psychiatric/Neuro: oriented to time, place, person, judgement normal, affect appropriate for age, insight intact, no focal deficits. Tests: , review of old records completed , Discussed surgical options, risks, and possible complications with patient. Assessment/Plan 1. Screening for malignant neoplasm of colon (Z12.11: Encounter for screening for malignant neoplasm of colon) plan colonoscopy under anesthesia, informed consent obtained. Follow-up No qualifying data available Problem List/Past Medical History Ongoing BMI 33.0-33.9,adult BPH without urinary obstruction Kidney stone Obesity Pure hypercholesterolemia Screening for malignant neoplasm of colon Ureteral stone with hydronephrosis Historical No qualifying data Procedure/Surgical History Arthroscopy of knee, Tonsillectomy. Medications simvastatin 20 mg Tab, 20 mg= 1 tab(s), Oral, qPM Allergies No Known Allergies Social History Alcohol - Denies Alcohol Use, 06/21/2023 Substance Abuse - Denies Substance Abuse, 06/21/2023 Tobacco Cigars or pipes but not daily within last 30 days Tobacco Use:. Never Smokeless Tobacco Use:. Cigars, Yes, 06/21/2023 Family History Diabetes mellitus type 2: Father. Heart disease: Father. Pancreatic adenocarcinoma: Father. Immunizations Vaccine Date Status Comments influenza virus vaccine, inactivated 12/28/2022 Recorded SARS-CoV-2 (COVID-19) mRNA-1273 vaccine 03/03/2021 Recorded SARS-CoV-2 (COVID-19) mRNA-1273 vaccine 02/03/2021 Recorded 2023-05-22: [id number] [facility] Comment on above: Result Comment: Elec tronically Signed By: GONZALO PERSON, Enrique Mcmahon\Date and Time Signed: 06/21/23 14:25 EDT Evaluation + Plan note Note Date & Type Note Facility Evaluation + Plan note No data available for this section [facility] Discharge instructions Note Date & Type Note Facility Hospital Discharge instructions No data available for this section [facility] Progress note Note Date & Type Note Facility Progress note No data available for this section [facility] Advance Directives No Advanced Directives Records FoundDocuments on File Type Date Recorded Patient Account [facility] Expl anation Advance Directives and Living Will Power of Well Flow 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 Care Team (unrecognized sect ion and content) Personnel Name: YOLANDA OLGUIN MD Address: [address] [place] [address] Personnel Name: Adelfo Garibay MD Address: Address: [address] [place] [address] FOR RECORDS PERTAINING TO PATIENTS WHO ARE OR HAVE BEEN ENROLLED IN A CHEMICAL DEPENDENCY/SUBSTANCEABUSE PROGRAM, SOME INFORMATION MAY BE OMITTED. This clinical summary was aggregated from multiple sources. Caution should be exercised in using it in the provision of clinical care. This summary normalizes information from multiple sources, and as a consequence, information in this document may materially change the coding, format and clinical context of patient data. In addition, data may be omitted in some cases. CLINICAL DECISIONS SHOULD BE BASED ON THE PRIMARY CLINICAL RECORDS. [facility] provides no warranty or guarantee of the accuracy or completeness of information in this document.
[2023-08-09] MEDS: LACTATED RINGER'S SOLUTION 1,000 ML 50 ML IV (09:31)
[2023-08-09 12:08] VITALS: BP 115/95; PULSE 85; TEMP 36.1; O2SAT 94
[2023-08-09 12:25] VITALS: BP 107/77; PULSE 74; O2SAT 98
[2023-08-09 12:42] VITALS: BP 131/91; PULSE 67; O2SAT 98
== END 2023-08-09 12:45 | disposition home or self-care (01) ==
PROVIDERS: PCP Family Medicine; Visit Provider Surgery
PROC: (CPT 812; principal; 2023-08-09 10:15)
DX: Z12.11 Encounter for screening for malignant neoplasm of colon (principal); E78.00 Pure hypercholesterolemia, unspecified; F17.290 Nicotine dependence, other tobacco product, uncomplicated
CPT/HCPCS: 45378; J2704

== ENCOUNTER 2023-10-24 10:30 | Outpatient (OUT) | payer BC, SELFPAY ==
[2023-10-24 10:47] LABS: Basophils Percent Auto 0.8 % (0.2-2.0); Eosinophils Absolute Auto 0.2 10^3/uL (0.0-0.7); Eosinophils Percent Auto 3.9 % (0.9-7.0); Hematocrit 42.9 % (42.0-54.0); Hemoglobin 14.6 g/dL (14.0-18.0); Immature Granulocytes Abs Auto 0.02 10^3/uL (0.00-0.03); Immature Granulocytes Pct Auto 0.4 % (0.0-0.5); Lymphocytes Absolute Auto 1.1 10^3/uL (1.2-3.8); Lymphocytes Percent Auto 22.8 % (20.5-60.0); Mean Corpuscular Hemoglobin 31.2 pg (25.9-34.0); Mean Corpuscular Volume 91.7 fL (80.0-94.0); Mean Platelet Volume 10.8 fL (9.5-13.5); Monocytes Absolute Auto 0.4 10^3/uL (0.3-0.8); Monocytes Percent Auto 7.2 % (1.7-12.0); Neutrophils Absolute Auto 3.1 10^3/uL (1.4-6.5); Neutrophils Percent Auto 64.9 % (43.0-75.0); Platelet Count 226 10^3/uL (150-450); Red Blood Count 4.68 10^6/uL (4.70-6.10); Red Cell Distribution Width 13.9 % (11.0-15.0); White Blood Count 4.8 10^3/uL (4.0-11.0)
--- OUTSIDE RECORDS SUMMARY | 2023-10-24 10:48 | XMS_ITS | CCD ---
Author Organization [facility] Inform ion Partnership [employer] [facility] Care Team Providers Care Real Estate Management Specialist Name Role Phone Yolanda Olguin Primary Care Provider ENRIQUE THOMSON Referring Unavailable YOLANDA OLGUIN Primary Care Unavailable CASSANDRA SAAVEDRA Admitting Unavailable CASSANDRA SAAVEDRA Attending Unavailable JOSEFA, DR KIDD Consulting Unavailable KERI, CASSANDRA Consulting Unavailable Cathleen Miller Consulting Unavailable JUAN, DR COTE Admitting Unavailable JUAN, DR COTE Attending Unavailable JUAN, DR OCTE Consulting Unavailable SHERIDAN, DR SYED Goodson Consulting [...] SÁNCHEZ Attending Unavailable Adelfo Garibay Referring Unavailable Medications Current Medications Medication Drug Class(es) Dates [...] cholesterol medi cation 1 daily in evening Problems Problem Classification Problem Date Documented Date [...] Unclassified (1 source) Patient encounter status 06-21-2023 Results Test Name Value Interpretation Reference Range Facility Outside Colonoscopyon 2023 Outside Colonoscopy [id number]#1.00T IFF [facility] Reminderson 08-10-2023 Reminders - From: Terri Pritchett LPN To: GSN - Clinical; Sent: 08/10/2023 12:01:47 EDT Show up: 07/08/2033 07:00:00 EDT Subject: colonoscopy recall Due Date/Time: 08/08/2033 07:00:00 EDT Reminder/Recall Patient due for screening colonoscopy 08/08/2033. [facility] Insurance Correspondenceon 0 07-26-2023 Insurance Correspondence [id number]#1.00 TIFF [facility] Consent for Procedure/Surger yon 06-22-2023 Consent for Procedure/Surgery [id number]#1.00T IFF [facility] Ambulatory Visit Summaryon 0 06-21-2023 Ambulatory Visit Summary KENNY DEL RIO :1970 Visit Date:06/21/2023 Ambulatory Visit Instructions Your Diagnosis Screening for malignant neoplasm of colon Your Care Team Attending Physician - GONZALO PERSON, Enrique Goodson Primary Care Physician - Adelfo Garibay MD Referring Physician - Adelfo Garibay MD This [...] for choosing us for your care. Normal [facility] Facesheeton 06-21-2023 Facesheet [id number]#1.00 TIFF Normal [facility] No Panel Informationon 05-31 Tobacco smoking status Non-Smoker Invalid Interpretation Code [employer] Physician Referralon 024 Physician Referral [id number]#1.00T IFF Normal [facility] CBC AUTO DIFFon 07-08-2021 BASO # 0.1 103/ul Normal 0.0-0.1 [facility] Comment on above: Performed By: #### C BC ####[facility] [address] [place], [place] [address]Zs. Jorge Dominguez Basophils/100 WBC (Bld) 0.5 % Normal 0.2-2.0 [facility] Comment on above: Performed By: #### C BC ####[facility] [address] [place], [place] [address]RkAmanda Dominguez EO # 0.1 103/ul Normal 0.0-0.7 [facility] Comment on above: Performed By: #### C BC ####[facility] [address] [place] [id number]. Jorge Dominguez Eosinophils/100 WBC (Bld) 0.9 % Normal 0.9-7.0 [facility] Comment on above: Performed By: #### C BC ####[facility] [address] [place] [id number]. Jorge Dominguez Erythrocyte distribution width (RBC) [Ratio] 13.0 % Normal 11.0-15.0 [facility] Comment on above: Performed By: #### C BC ####[facility] [address] [place] [id number]. Jorge Dominguez Hematocrit (Bld) [Volume fraction] 43.4 % Normal 42.0-54.0 [facility] Comment on above: Performed By: #### C BC ####[facility] [address] [place], [place] [address]Dr. Jorge Dominguez Hemoglobin (Bld) [Mass/Vol] 14.9 g/dL Normal 14.0-18.0 [facility] Comment on above: Performed By: #### C BC ####[facility] [address] [place] [id number]. Jorge Dominguez IG # 0.04 10e3/ul Critically high 0.00-0.03 [facility] Comment on above: Performed By: #### C BC ####[facility] [address] [place] [address]Dr. Jorge Dominguez IG % 0.4 % Normal 0.0-0.5 [facility] Comment on above: Performed By: #### C BC ####[facility] [address] [place] [id number]. Jorge Dominguez LYMPH # 1.0 103/ul Critically low 1.2-3.8 [facility] Comment on above: Performed By: #### C BC ####[facility] [address] [place], [place] [address]Dr. Jorge Dominguez Lymphocytes/100 WBC (Bld) 9.1 % Critically low 20.5-60.0 [facility] Comment on above: Performed By: #### C BC ####[facility] [address] [place] [id number]. Jorge Dominguez MANUAL DIFF REQ NO Normal [facility] Comment on above: Performed By: #### C BC ####[facility] [address] [place] [id number]. Jorge Dominguez MCH (RBC) [Entitic mass] 30.8 pg Normal 25.9-34.0 [facility] Comment on above: Performed By: #### C BC ####[facility] [address] [place], [place] [id number]. Jorge Dominguez MCHC (RBC) [Mass/Vol] 34.3 g/dL Normal 29.9-35.2 [facility] Comment on above: Performed By: #### C BC ####[facility] [address] [place], [place] [address]Dr. Jorge Dominguez MCV (RBC) [Entitic vol] 89.7 fL Normal 80.0-94.0 [facility] Comment on above: Performed By: #### C BC ####[facility] [address] [place], [place] [address]Dr. Jorge Dominguez MONO # 0.4 103/ul Normal 0.3-0.8 [facility] Comment on above: Performed By: #### C BC ####[facility] [address] [place] [id number]. Jorge Dominguez Monocytes/100 WBC (Bld) 4.1 % Normal 1.7-12.0 [facility] Comment on above: Performed By: #### C BC ####[facility] [address] [place], [place] [address]Dr. Jorge Dominguez NEUT # 9.0 103/ul Critically high 1.4-6.5 [facility] Comment on above: Performed By: #### C BC ####[facility] [address] [place], [place] [address]Dr. Jorge Dominguez Neutrophils/100 WBC (Bld) 85.0 % Critically high 43.0-75.0 [facility] Comment on above: Performed By: #### C BC ####[facility] [address] [place], [place] [address]Wk. Jorge Dominguez Platelet mean volume (Bld) [Entitic vol] 10.8 fL Normal 9.5-13.5 [facility] Comment on above: Performed By: #### C BC ####[facility] [address] [place], [place] [address]Fh. Jorge Dominguez PLT 210 103/ul Normal 150-450 [facility] Comment on above: Performed By: #### C BC ####[facility] [address] [place], [place] [address]Ik. Jorge Dominguez RBC 4.84 106/ul Normal 4.70-6.10 [facility] Comment on above: Performed By: #### C BC ####[facility] [address] [place], [place] [address]Ew. Jorge Dominguez WBC 10.6 103/ul Normal 4.0-11.0 [facility] Comment on above: Performed By: #### C BC ####[facility] [address] [place], [place] [address]Us. Jorge [address] CT ABD/PELVIS WO CONon 07-08 [...] CATHLEEN MILLER Date: 2021-07-08 05:16 Normal [facility] ER URINE PROFILEon 2 Bilirubin Ql (U) Negative Normal NEGATIVE [facility] Comment on above: Performed By: #### U MICRO, ERUR #### [facility] [address] [place] [address] Dr. Jorge Dominguez Clarity (U) CLEAR Normal CLEAR [facility] Comment on above: Performed By: #### U MICRO, ERUR #### [facility] [address] [place] [address] Dr. Jorge Dominguez Color (U) LT. YELLOW Normal YELLOW [facility] Comment on above: Performed By: #### U MICRO, ERUR #### [facility] [address] [place] [address] [address] Jorge Dominguez ERUAHD A micrscopic examination will be performed if indicated. Normal [facility] Comment on above: Performed By: #### U MICRO, ERUR #### [facility] [address] [place] [address] Dr. Jorge Dominguez Glucose Ql (U) Negative Normal NEGATIVE [facility] Comment on above: Performed By: #### U MICRO, ERUR #### [facility] [address] [address] [address] Jorge Dominguez Hemoglobin Ql (U) LARGE Abnormal NEGATIVE [facility] Comment on above: Performed By: #### U MICRO, ERUR #### [facility] [address] [place] [address] Dr. Jorge Dominguez Ketones Ql (U) TRACE Abnormal NEGATIVE [facility] Comment on above: Performed By: #### U MICRO, ERUR #### [facility] [address] [place] [address] Dr. Jorge Dominguez LEUKOCYTES Negative Normal NEGATIVE [facility] Comment on above: Performed By: #### U MICRO, ERUR #### [facility] [address] [place] [address] Dr. Jorge Dominguez Nitrite Ql (U) Negative Normal NEGATIVE [facility] Comment on above: Performed By: #### U MICRO, ERUR #### [facility] [address] [place] [address] Dr. Jorge Dominguez pH (U) 5.5 [pH] Normal 5-9 [facility] Comment on above: Performed By: #### U MICRO, ERUR #### [facility] [address] [place] [address] Dr. Jorge Dominguez SPEC GRAVITY >=1.030 Abnormal 1.005-<=1.[address] [place] [address] Comment on above: Performed By: #### U MICRO, ERUR #### [facility] [address] [place] [address] Dr. Jorge Dominguez UA PROTEIN Negative Normal NEGATIVE/ TRACE [facility] Comment on above: Performed By: #### U MICRO, ERUR #### [facility] [address] [place] [address] Dr. Jorge Dominguez UR MICRO IND INDICATED Normal [facility] Comment on above: Performed By: #### U MICRO, ERUR #### [facility] [address] [place] [address] Dr. Jorge Dominguez Urobilinogen Qn (U) 0.2 {Julee'U}/dL Normal 0.2 - 1. 0 [facility] Comment on above: Performed By: #### U MICRO, ERUR #### [facility] [address] [address] [address] Jorge Dominguez LACTATE/LACTIC ACIDon 2021 Lactate [Moles/Vol] 1.7 mmol/L Normal 0.4-2.0 [facility] Comment on above: Performed By: #### L ACT #### [facility] [address] [address] [address] Jorge Dominguez Lactate [Moles/Vol] 2.1 mmol/L Critically high 0.4-2.0 [facility] Comment on above: Performed By: #### L ACT #### [facility] [address] [address] [address] Jorge Dominguez PROF CHEM 8 (BAS METB)on Anion gap [Moles/Vol] 13.8 mmol/L Normal [facility] Comment on above: Performed By: #### B MP #### [facility] [address] [place] [address] Dr. Jorge Dominguez Calcium [Mass/Vol] 9.4 mg/dL Normal 8.5-10.1 [facility] Comment on above: Performed By: #### B MP #### [facility] [address] [place] [address] Dr. Jorge Dominguez Chloride [Moles/Vol] 104 mmol/L Normal 98-107 [facility] Comment on above: Performed By: #### B MP #### [facility] [address] [address] [address] Jorge Dominguez CO2 [Moles/Vol] 24.3 mmol/L Normal 21.0-32.[address] [facility] Comment on above: Performed By: #### B MP #### [facility] [address] [place] [address] Dr. Jorge Dominguez Creatinine [Mass/Vol] 1.32 mg/dL Critically high 0.70-1.30 [facility] Comment on above: Performed By: #### B MP #### [facility] [address] [place] [address] Dr. Jorge Dominguez EGFR-AF SOMALI >60 Normal >=60 [facility] Comment on above: Performed By: #### B MP #### [facility] [address] [address] [address] Jorge Dominguez EGFR-NON AF SOMALI 57 mL/min/1.73m2 Critically low >=60 [facility] Comment on above: Performed By: #### B MP #### [facility] [address] [address] [address] Jorge Dominguez Glucose [Mass/Vol] 166 mg/dL Critically high 74-106 T [facility] Comment on above: Performed By: #### B MP #### [facility] [address] [address] [address] Jorge Dominguez Potassium [Moles/Vol] 4.1 mmol/L Normal 3.5-5.1 [facility] Comment on above: Performed By: #### B MP #### [facility] [address] [address] [address] Jorge Dominguez Sodium [Moles/Vol] 138 mmol/L Normal 136-145 [facility] Comment on above: Performed By: #### B MP #### [facility] [address] [address] [address] Jorge Dominguez Urea nitrogen [Mass/Vol] 16.0 mg/dL Normal 7.0-18.0 [facility] Comment on above: Performed By: #### B MP #### [facility] [address] [address] [address] Jorge Dominguez Urea nitrogen/Creatinine [Mass ratio] 12.1 mg/mg Normal [facility] Comment on above: Performed By: #### B MP #### [facility] [address] [address] [address] Jorge Dominguez URINE MICROSCOPIC ONLYon BACTERIA TRACE Abnormal NONE SEEN [facility] Comment on above: Performed By: #### U MICRO, ERUR #### [facility] [address] [address] [address] Jorge Dominguez Bacteria identified Cx Nom (U) NOT INDICATED Normal [facility] Comment on above: Performed By: #### U MICRO, ERUR #### [facility] [address] [place] [address] Dr. Jorge Dominguez CAST NONE SEEN Normal NONE SEEN [facility] Comment on above: Performed By: #### U MICRO, ERUR #### [facility] [address] [place] [address] Dr. Jorge Dominguez Crystals LM Nom (Urine sed) NONE SEEN Normal NONE SEEN [facility] Comment on above: Performed By: #### U MICRO, ERUR #### [facility] [address] [place] [address] Dr. Jorge Dominguez Epithelial cells LM Ql (Urine sed) FEW Abnormal NONE SEEN /RARE [facility] Comment on above: Performed By: #### U MICRO, ERUR #### [facility] [address] [place] [address] Dr. Jorge Dominguez MUCOUS TRACE Abnormal NONE SEEN [facility] Comment on above: Performed By: #### U MICRO, ERUR #### [facility] [address] [place] [address] Dr. Jorge Dominguez RBC 5-10 Abnormal 0-2 [facility] Comment on above: Performed By: #### U MICRO, ERUR #### [facility] [address] [place] [address] Dr. Jorge Dominguez WBC 0-2 Abnormal NONE SEEN [facility] Comment on above: Performed By: #### U MICRO, ERUR #### [facility] [address] [place] [address] Dr. Jorge Dominguez PSA SCREENING LABCORPon 12-2 Prostate specific Ag [Mass/Vol] 2.4 ng/mL Normal 0.0-4.0 [facility] Comment on above: Result Comment: Nhi GUTIERREZ methodology. . According to the [employer], Serum PSA should decrease and [...] malignant disease. Performed By: #### P SASCLC ####[facility] [address] [place] [address]DrAmanda Dominguez XR KUB 1 VIEWon 02-22-2021 XR [...] SYED SWARTZ Date: 2021-02-22 16:11 Normal [facility] AMYLASEon 02-17-2021 Amylase [Catalytic activity/Vol] 65 U/L Normal 31-110 [facility] Comment on above: Performed By: #### L WILLA MORALES ####[facility] [address] [place] [address]Dr. Jorge Domniguez CBC AUTO DIFFon 02-17-2021 BASO # 0.1 103/ul Normal 0.0-0.1 [facility] Comment on above: Performed By: #### C BC #### [facility] [address] [place] [address] Dr. Jorge Dominguez Basophils/100 WBC (Bld) 0.6 % Normal 0.2-2.0 [facility] Comment on above: Performed By: #### C BC #### [facility] [address] [place] [address] Dr. Jorge Dominguez EO # 0.3 103/ul Normal 0.0-0.7 [facility] Comment on above: Performed By: #### C BC #### [facility] [address] [address] [address] Jorge Dominguez Eosinophils/100 WBC (Bld) 3.9 % Normal 0.9-7.0 [facility] Comment on above: Performed By: #### C BC #### [facility] [address] [place] [address] Dr. Jorge Dominguez Erythrocyte distribution width (RBC) [Ratio] 13.1 % Normal 11.0-15.0 [facility] Comment on above: Performed By: #### C BC #### [facility] [address] [place] [address] Dr. Jorge Dominguez Hematocrit (Bld) [Volume fraction] 43.3 % Normal 42.0-54.0 [facility] Comment on above: Performed By: #### C BC #### [facility] [address] [place] [address] Dr. Jorge Dominguez Hemoglobin (Bld) [Mass/Vol] 14.7 g/dL Normal 14.0-18.0 [facility] Comment on above: Performed By: #### C BC #### [facility] [address] [place] [address] Dr. Jorge Dominguez IG # 0.03 10e3/ul Normal 0.00-0.03 [facility] Comment on above: Performed By: #### C BC #### [facility] [address] [place] [address] Dr. Jorge Dominguez IG % 0.4 % Normal 0.0-0.5 [facility] Comment on above: Performed By: #### C BC #### [facility] [address] [place] [address] Dr. Jorge Dominguez LYMPH # 1.2 103/ul Normal 1.2-3.8 [facility] Comment on above: Performed By: #### C BC #### [facility] [address] [place] [address] Dr. Jorge Dominguez Lymphocytes/100 WBC (Bld) 14.8 % Critically low 20.5-60.0 [facility] Comment on above: Performed By: #### C BC #### [facility] [address] [place] [address] Dr. Jorge Dominguez MANUAL DIFF REQ NO Normal [facility] Comment on above: Performed By: #### C BC #### [facility] [address] [place] [address] Dr. Jorge Dominguez MCH (RBC) [Entitic mass] 30.6 pg Normal 25.9-34.0 [facility] Comment on above: Performed By: #### C BC #### [facility] [address] [place] [address] Dr. Jorge Dominguez MCHC (RBC) [Mass/Vol] 33.9 g/dL Normal 29.9-35.2 [facility] Comment on above: Performed By: #### C BC #### [facility] [address] [place] [address] Dr. Jorge Dominguez MCV (RBC) [Entitic vol] 90.0 fL Normal 80.0-94.0 [facility] Comment on above: Performed By: #### C BC #### [facility] [address] [place] [address] Dr. Jorge Dominguez MONO # 0.5 103/ul Normal 0.3-0.8 [facility] Comment on above: Performed By: #### C BC #### [facility] [address] [place] [address] Dr. Jorge Dominguez Monocytes/100 WBC (Bld) 6.1 % Normal 1.7-12.0 [facility] Comment on above: Performed By: #### C BC #### [facility] [address] [place] [address] Dr. Jorge Dominguez NEUT # 6.2 103/ul Normal 1.4-6.5 [facility] Comment on above: Performed By: #### C BC #### [facility] [address] [place] [address] Dr. Jorge Dominguez Neutrophils/100 WBC (Bld) 74.2 % Normal 43.0-75.0 [facility] Comment on above: Performed By: #### C BC #### [facility] [address] [place] [address] Dr. Jorge Dominguez Platelet mean volume (Bld) [Entitic vol] 10.8 fL Normal 9.5-13.5 [facility] Comment on above: Performed By: #### C BC #### [facility] [address] [place] [address] Dr. Jorge Dominguez PLT 230 103/ul Normal 150-450 [facility] Comment on above: Performed By: #### C BC #### [facility] [address] [address] [address] Jorge Dominguez RBC 4.81 106/ul Normal 4.70-6.10 [facility] Comment on above: Performed By: #### C BC #### [facility] [id number] Jorge Dominguez WBC 8.4 103/ul Normal 4.0-11.0 [facility] Comment on above: Performed By: #### C BC #### [facility] [address] [address] ABD/PELV W CONon 02-18-20 CT ABD/PELV W CON EXAMINATION: CT ABD/PELV [...] SYED SWARTZ Date: 2021-02-17 07:38 Normal [facility] ER URINE PROFILEon 1 Bilirubin Ql (U) Negative Normal NEGATIVE [facility] Comment on above: Performed By: #### E RUR #### [facility] [address] [place] [address] Dr. Jorge Dominguez Clarity (U) CLEAR Normal CLEAR [facility] Comment on above: Performed By: #### E RUR #### [facility] [address] [place] [address] Dr. Jorge Dominguez Color (U) LT. YELLOW Normal YELLOW [facility] Comment on above: Performed By: #### E RUR #### [facility] [address] [place] [address] Dr. Jorge MURRAY A micrscopic examination will be performed if indicated. Normal [facility] Comment on above: Performed By: #### E RUR #### [facility] [address] [place] [address] Dr. Jorge Dominguez Glucose Ql (U) Negative Normal NEGATIVE [facility] Comment on above: Performed By: #### E RUR #### [facility] [address] [place] [address] Dr. Jorge Dominguez Hemoglobin Ql (U) Negative Normal NEGATIVE [facility] Comment on above: Performed By: #### E RUR #### [facility] [address] [place] [address] Dr. Jorge Dominguez Ketones Ql (U) Negative Normal NEGATIVE [facility] Comment on above: Performed By: #### E RUR #### [facility] [address] [place] [address] Dr. Jorge Dominguez LEUKOCYTES Negative Normal NEGATIVE [facility] Comment on above: Performed By: #### E RUR #### [facility] [address] [place] [address] Dr. Jorge Dominguez Nitrite Ql (U) Negative Normal NEGATIVE [facility] Comment on above: Performed By: #### E RUR #### [facility] [address] [address] [address] Jorge Dominguez pH (U) 7.0 [pH] Normal 5-9 [facility] Comment on above: Performed By: #### E RUR #### [facility] [address] [place] [address] Dr. Jorge Dominguez SPEC GRAVITY 1.020 Normal 1.005-<=1.02 5 [facility] Comment on above: Performed By: #### E RUR #### [facility] [address] [place] [address] Dr. Jorge Dominguez UA PROTEIN Negative Normal NEGATIVE/ TRACE [facility] Comment on above: Performed By: #### E RUR #### [facility] [address] [place] [address] Dr. Jorge Dominguez UR MICRO IND NOT INDICATED Normal [facility] Comment on above: Performed By: #### E RUR #### [facility] [address] [place] [address] Dr. Jorge Dominguez Urobilinogen Qn (U) 0.2 {Julee'U}/dL Normal 0.2 - 1. 0 [facility] Comment on above: Performed By: #### E RUR #### [facility] [address] [place] [address] Dr. Jorge Dominguez LIPASEon 02-17-2021 Lipase [Catalytic activity/Vol] 102.0 U/L Normal 23.0-300.0 [facility] Comment on above: Performed By: #### L IPAWILLA ####[facility] [id number] [address] Jorge Dominguez PROF 14(COMP METB)on 021 Albumin [Mass/Vol] 4.3 g/dL Normal 3.5-5.0 [facility] Comment on above: Performed By: #### C MP #### [facility] [address] [place] [address] Dr. Jorge Dominguez Albumin/Globulin [Mass ratio] 1.2 {ratio} Normal [facility] Comment on above: Performed By: #### C MP #### [facility] [address] [address] [address] Jorge Dominguez ALP [Catalytic activity/Vol] 54 U/L Normal 38-126 [facility] Comment on above: Performed By: #### C MP #### [facility] [address] [address] [address] Jorge Dominguez ALT [Catalytic activity/Vol] 93 U/L Critically high 21-72 [facility] Comment on above: Performed By: #### C MP #### [facility] [address] [address] [address] Jorge Dominguez Anion gap [Moles/Vol] 14.7 mmol/L Normal [facility] Comment on above: Performed By: #### C MP #### [facility] [address] [place] [address] Dr. Jorge Dominguez AST [Catalytic activity/Vol] 36 U/L Normal 17-59 [facility] Comment on above: Performed By: #### C MP #### [facility] [address] [place] [address] Dr. Jorge Dominguez Bilirubin [Mass/Vol] 0.6 mg/dL Normal 0.2-1.3 [facility] Comment on above: Performed By: #### C MP #### [facility] [address] [place] [address] Dr. Jorge Dominguez Calcium [Mass/Vol] 9.4 mg/dL Normal 8.4-10.2 [facility] Comment on above: Performed By: #### C MP #### [facility] [address] [address] [address] Jorge Dominguez Chloride [Moles/Vol] 103 mmol/L Normal 98-107 [facility] Comment on above: Performed By: #### C MP #### [facility] [address] [address] [address] Jorge Dominguez CO2 [Moles/Vol] 26.2 mmol/L Normal 22.0-30.[address] [facility] Comment on above: Performed By: #### C MP #### [facility] [address] [address] [address] Jorge Dominguez Creatinine [Mass/Vol] 1.24 mg/dL Normal 0.66-1.25 [facility] Comment on above: Performed By: #### C MP #### [facility] [address] [address] [address] Jorge Dominguez EGFR-AF SOMALI >60 Normal >=[address] [facility] Comment on above: Performed By: #### C MP #### [facility] [address] [address] [address] Jorge Dominguez EGFR-NON AF SOMALI >60 Normal >=60 [facility] Comment on above: Performed By: #### C MP #### [facility] [address] [place] [address] Dr. Jorge Dominguez Globulin (S) [Mass/Vol] 3.5 g/dL Normal [facility] Comment on above: Performed By: #### C MP #### [facility] [address] [place] [address] Dr. Jorge Dominguez Glucose [Mass/Vol] 160 mg/dL Critically high 74-106 [facility] Comment on above: Performed By: #### C MP #### [facility] [address] [place] [address] Dr. Jorge Dominguez Potassium [Moles/Vol] 3.9 mmol/L Normal 3.4-5.0 [facility] Comment on above: Performed By: #### C MP #### [facility] [address] [place] [address] Dr. Jorge Dominguez Protein [Mass/Vol] 7.8 g/dL Normal 6.1-8.2 [facility] Comment on above: Performed By: #### C MP #### [facility] [address] [place] [address] Dr. Jorge Dominguez Sodium [Moles/Vol] 140 mmol/L Normal 137-145 [facility] Comment on above: Performed By: #### C MP #### [facility] [address] [place] [address] Dr. Jorge Dominguez Urea nitrogen [Mass/Vol] 13.0 mg/dL Normal 9.0-20.0 [facility] Comment on above: Performed By: #### C MP #### [facility] [address] [place] [address] [address] [address] Jorge Dominguez Urea nitrogen/Creatinine [Mass ratio] 10.5 mg/mg Normal [facility] Comment on above: Performed By: #### C MP #### [facility] [address] [place], [place] [address] Dr. Jorge Dominguez T-Spoton 01-18-2019 T-Spot. TB Test Normal [facility] Comment on above: Result Comment: [facility] [address] [place] [address] (NOTE) T-SPOT.TB Test Results --------- T-SPOT TB [...] R UBI, JOSEY, RADHA, VZI, TSPOT #### [id number] [place] [address] [employer] Manager [employer]: Santy Armstrong MD Measles (Rubeola) Imon 01-16 Measles (Rubeola) Im 5.30 Normal >1.09 [facility] Comment on above: Result Comment: Interpretation: IMMUNE Reference Range: <0.91 Not Immune 0.91-1.09 Equivocal >1.09 Immune Performed By: #### R UBI, JOSEY, RADHA, VZI, TSPOT #### [facility] [address] [place] [address] [employer] Manager [employer]: Santy Armstrong MD Mumps,Immun,Abon 01-16-2019 Mumps,Immun,Ab 0.83 Low >1.09 [facility] Comment on above: Result Comment: Interpretation: Not Immune Reference Range: <0.91 Not Immune 0.91-1.09 Equivocal >1.09 Immune Performed By: #### R UBI, JOSEY, RADHA, VZI, TSPOT #### [address] [address] Product Manager [employer]: Santy Armstrong MD VZ Immunityon 01-16-2019 VZ Immunity 1.15 Normal >1.09 [facility] Comment on above: Result Comment: Interpretation: IMMUNE Reference Range: <0.91 Not Immune 0.91-1.09 Equivocal >1.09 Immune Performed By: #### R UBI, JOSEY, RADHA, VZI, TSPOT #### [address] [address] Product Manager [employer]: Santy Armstrong MD Rubella Ab, IgGon 01-14-2019 Rubella Ab, IgG 43.3 IU/mL Normal [facility] Comment on above: Result Comment: REFERENCE RANGE: <5.0 NON-REACTIVE (non-immune) 5.0 TO 9.9 EQUIVOCAL >=10.0 REACTIVE (immune) Performed By: #### R UBI, JOSEY, RADHA, VZI, TSPOT #### [facility] [address] [place] [id number] Product Manager [employer]: Santy Armstrong MD Rubella antibody, IgGon 01-04 Rubella virus IgG Ql (S) 43.3 IU/mL [place] Comment on above: REFERENCE RANGE: <5.0 NON-REACTIVE (non-immune) 5.0 TO 9.9 EQUIVOCAL >=10.0 REACTIVE (immune) Vital Signs Date Time Vital Sign Value Performing Clinician Donavan cole 06-21-2023 13:17-0400 Blood Pressure Location Enrique PATELL [facility] [place] 06-21-2023 13:17-0400 Diastolic blood pressure 84 mm[Hg] Enrique NILL [facility] [place] 06-21-2023 13:17-0400 Heart rate 76 /min Enrique NILL [facility] [place] 06-21-2023 13:17-0400 Respiratory rate 16 /min Enrique NILL [facility] [place] 06-21-2023 13:17-0400 Systolic blood pressure 120 mm[Hg] Enrique NILL [facility] [place] Encounters Encounter Date Encounter Type Care Provider Facility Start: 06-21-2023 End: 06-21-2023 ambulatory Enrique SÁNCHEZ Facility:[facility] Start: 06-21-2023 End: 06-21-2023 Patient encounter procedure Enrique Goodson GONZALO [facility] [place] [place] Start: 06-01-2023 Office outpatient ne w 30 minutes Alyse Sanford Other [facility] Office Start: 05-18-2023 ambulatory Enrique SÁNCHEZ Facility:[facility] Start: 10-20-2021 End: 10-20-2021 Patient encounter procedure CLEO HEALY [facility] [place] Start: 07-08-2021 End: 07-08-2021 ambulatory CASSANDRA SAAVEDRA Facility:[facility] Start: 02-22-2021 End: 02-23-[address] KERA MARTINEZ Facility:[facility] Start: 02-17-2021 End: 02-17-[address] ARAVIND EDMONDS Facility:[facility] Start: 01-14-2019 End: 01-15-2019 Patient encounter procedure ENRIQUE RIETHMILLER [facility] Start: 01-14-2019 End: 01-14-2019 Subsequent hospital visit by physician Yolanda SANTACRUZ Laboratory Procedures Date Procedure Procedure Detail Performing Clinician Start: 01-14-2019 Antibody mumps ENRQIUE THOMSON Start: 01-14-2019 Antibody rubeola MICHBRYANNA Roach ALIX Start: 01-14-2019 Antibody varicella-zoster ENRIQUE THOMSON Start: 01-14-2019 Immunoassay infectio us agent antibody delicia nos ENRIQUE THOMSON Start: 01-14-2019 Tb antigen response gamma interferon t-cell susp ENRIQUE THOMSON Start: 01-14-2019 Immunoassay infectio us agent antibody delicia nos Enrique Thomson Work Phone: Arthroscopy of knee Enrique GONZALO Tonsillectomy CLEO HEALY Plan of Treatment Date Care Activity Detail Author Start: 11-04-2018 Influenza vaccination Flu vaccine (# 1) [place], [place] Start: 2010 Lipid screen Lipid screen [place], [place] Start: 1989 DTaP/Tdap/Td vaccine (1 - Tdap) DTaP/Tdap/Td vaccine (1 - Tdap) [place], [place] Start: 1985 HIV screen HIV screen [place], [place] End: 01-14-2019 Mumps Antibody, IgG Mumps Antibody, IgG Lab Routine Once for 1 Occurrences starting 01/14/2019 until 01/14/2019 [place] Comment on above: Once for 1 Occurrenc es starting 01/14/2019 until 01/14/2019 Mumps Antibody, IgG Mumps Antibo dy, IgG Lab Routine 01/14/2019 3:03 PM EST [place] End: 01-14-2019 Rubeola Antibody, IgG Rubeola Antibody, IgG Lab Routine Once for 1 Occurrences starting 01/14/2019 until 01/14/2019 [place] Comment on above: Once for 1 Occurrenc es starting 01/14/2019 until 01/14/2019 Rubeola Antibody, IgG Rubeola An tibody, IgG Lab Routine 01/14/2019 3:03 PM [place], [place] End: 01-14-2019 Tb antigen response gamma interferon t-cell susp T-Spot TB Test Lab Routine Once for 1 Occurrences starting 01/14/2019 until 01/14/2019 [place] Comment on above: Once for 1 Occurrenc es starting 01/14/2019 until 01/14/2019 Tb antigen response gamma interferon t-cell susp T-Spot TB Test Lab Routine 01/14/2019 3:03 PM [place], [place] End: 01-14-2019 Varicella Zoster Antibody, IgG Varicella Zoster Antibody, IgG Lab Routine Once for 1 Occurrences starting 01/14/2019 until 01/14/2019 [place] Comment on above: Once for 1 Occurrenc es starting 01/14/2019 until 01/14/2019 Varicella Zoster Antibody, IgG Varicella Zoster Antibody, IgG Lab Routine 01/14/2019 3:03 PM [place] Immunizations Immunization Date Immunization Notes Care Provider [facility] 12-28-2022 influenza virus vaccine, unspecified formulation Enrique SÁNCHEZ [facility] 03-03-2021 SARS-CoV-2 (COVID-19 ) mRNA-1273 vaccine Enrique GONZALO [facility] 02-03-2021 SARS-CoV-2 (COVID-19 ) mRNA-1273 vaccine Enrique SÁNCHEZ [facility] Comment on above: Result Comment: 2023: [id number] Payers Date Payer Category Payer Unknown [id number] 1970 Unknown [id number] 1970 Unknown [id number] 1970 Unknown [id number] 1959 Unknown [id number] 1959 Unknown [id number] Social History Date Type Detail Facility Start: 05-21-2014 Tobacco smoking status NHIS Never smoker [place] Start: 05-21-2014 Alcohol intake Current non-dr clothes model of alcohol (finding) [place] Sex Assigned At Not on file [place] Start: 02-22-2021 Light tobacco smoker (finding) [facility] Male [facility] Start: *Tobacco [employer] Start: 06-21-2023 Tobacco smoking status Occasional tobacco smoker (finding) [facility] [place] Tobacco smoking status Never [facility] [place] Functional Status Date Assessment Result Facility 06-21-2023 Functional Status N/A [facility] Clinical Note 06-21-2023 Note Date & Type [...] (COVID-19) mRNA-1273 vaccine 02/03/2021 Recorded 2023-05-22: [id number] [facility] Comment on above: Result Comment: Elec tronically Signed By: GONZALO PERSON, Enrique Mcmahon\Date and Time Signed: 06/21/23 14:25 EDT Evaluation + Plan note Note Date & Type Note Facility Evaluation + Plan note No data available for this section [facility] Hospital Discharge instructions Note Date & Type Note Facility Hospital Discharge instructions No data available for this section [facility] Progress note Note Date & Type Note Facility Progress note No data available for this section [facility] Advance Directives No Advanced Directives Records FoundDocuments on File Type Date 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 Care Team (unrecognized sect ion and content) Personnel Name: YOLANDA OLGUIN MD Address: [address] [place] [address] Personnel Name: Adelfo Garibay MD Address: Address: [facility] FOR RECORDS PERTAINING TO PATIENTS WHO ARE [...] BE BASED ON THE PRIMARY CLINICAL RECORDS. [facility] [email or web address] [facility] provides no warranty or guarantee of the accuracy or completeness of information in this document.
[2023-10-24 10:58] LABS: Alanine Aminotransferase 61 U/L (16-63); Albumin Globulin Ratio 1.4; Albumin Level 4.2 g/dL (3.4-5.0); Alkaline Phosphatase 48 U/L (46-116); Anion Gap 14.1; Aspartate Amino Transferase 26 U/L (15-37); BUN Creatinine Ratio 13.8; Bilirubin Total 0.7 mg/dL (0.2-1.0); Calcium 9.2 mg/dL (8.5-10.1); Carbon Dioxide 26.9 mmol/L (21.0-32.0); Chloride 104 mmol/L (98-107); Chol HDL Ratio 4.6; Cholesterol 220 mg/dL (<=200); Estimated GFR (African America >60 (>=60); Estimated GFR (Non-African Ame >60 (>=60); Globulin 3.1 g/dL; Glucose 101 mg/dL (74-106); HDL Cholesterol 48 mg/dL (40-60); Sodium 141 mmol/L (136-145); Total Protein 7.3 g/dL (6.4-8.2); Triglycerides 197 mg/dL (<=150); VLDL CHOLESTEROL 39.4 mg/dL
[2023-10-24 11:31] LABS: Estimated Average Glucose 94 mg/dL; Glycohemoglobin A1C 4.9 % (4.5-6.2)
[2023-10-24 11:48] LABS: Prostate Specific Antigen Scrn 2.98 ng/mL (<=4.00)
[2023-10-25 08:12] LABS: CA 19-9 17 U/mL (0-35)
== END 2023-10-24 10:31 | disposition home or self-care (01) ==
LOC: LAB 10:30
PROVIDERS: PCP Family Medicine; Visit Provider Family Medicine
DX: Z00.00 Encounter for general adult medical examination without abnormal findings (principal)
CPT/HCPCS: 36415; 80053; 80061; 83036; 83525; 85025; 86301; G0103

== ENCOUNTER 2023-10-30 13:55 | Outpatient (OUT) | payer BC, SELFPAY ==
[2023-10-30 14:13] LABS: Bilirubin Urine NEGATIVE (NEGATIVE); Blood Urine NEGATIVE (NEGATIVE); Clarity Urine CLEAR (CLEAR); Color Urine LT. YELLOW (YELLOW); Glucose Urine UA NEGATIVE (NEGATIVE); Ketones Urine NEGATIVE (NEGATIVE); Leukocyte Esterase Urine NEGATIVE (NEGATIVE); Nitrite Urine NEGATIVE (NEGATIVE); Protein Urine NEGATIVE (NEG/TRACE); Urobilinogen Urine 0.2 EU/dL (0.2-1.0); pH Urine 5.5 (5.0-9.0)
[2023-10-30 14:20] LABS: Bacteria Urine NONE SEEN #/HPF (NONE SEEN); Mucus Urine NONE SEEN (NONE SEEN); RBC Urine NONE SEEN #/HPF (0-2); Squamous Epithelial Cell Urine RARE #/LPF (NONE/RARE); WBC Urine NONE SEEN #/HPF (NONE SEEN)
[2023-10-30 14:21] LABS: Urine Culture Indicated ALREADY ORDERED
== END 2023-10-30 13:56 | disposition home or self-care (01) ==
LOC: LAB 13:56
PROVIDERS: PCP Family Medicine; Visit Provider Family Medicine
DX: N99.89 Other postprocedural complications and disorders of genitourinary system (principal)
CPT/HCPCS: 81001; 87086

== ENCOUNTER 2024-04-16 09:55 | Outpatient (OUT) | payer BC, SELFPAY ==
--- OUTSIDE RECORDS SUMMARY | 2024-04-16 10:12 | XMS_ITS | CCD ---
Author Organization [facility] Inform ion Partnership TARIFF PUBLISHING AGENT [facility] Care Team Providers Care Longitudinal Float Operator Name Role Phone Yolanda Olguin Primary Care Provider [phone] ENRIQUE THOMSON Referring Unavailable YOLANDA OLGUIN Primary Care Unavailable CASSANDRA SAAVEDRA Admitting Unavailable CASSANDRA SAAVEDRA Attending Unavailable JOSEFA, DR KIDD Consulting Unavailable KERI, CASSANDRA Consulting Unavailable Cathleen Miller Consulting Unavailable JUAN, DR COTE Admitting Unavailable JAUN, DR COTE Attending Unavailable JUAN, DR COTE [...] Range Facility Outside Colonoscopyon 2023 Outside Colonoscopy [id number]#1.00T IFF [facility] Reminderson 08-10-2023 Reminders - From: Terri Pritchett LPN To: GSN - Clinical; Sent: 08/10/2023 12:01:47 EDT Show up: 07/08/2033 07:00:00 EDT Subject: colonoscopy recall Due Date/Time: 08/08/2033 07:00:00 EDT Reminder/Recall Patient due for screening colonoscopy 08/08/2033. [facility] Insurance Correspondenceon 0 07-26-2023 Insurance Correspondence [id number]#1.00 TIFF [facility] Consent for Procedure/Surger yon 06-22-2023 Consent for Procedure/Surgery [id number]#1.00T IFF [facility] Ambulatory Visit Summaryon 0 06-21-2023 Ambulatory [...] for choosing us for your care. Normal [facility] Facesheeton 06-21-2023 Facesheet [id number]#1.00 TIFF Normal [facility] No Panel Informationon 05-31 Tobacco smoking status Non-Smoker Invalid Interpretation Code beqom Physician Referralon 024 Physician Referral [id number]#1.00T IFF Normal [facility] CBC AUTO DIFFon 07-08-2021 BASO # 0.1 103/ul Normal 0.0-0.1 [facility] Comment on above: Performed By: #### C BC ####[facility] [address] [place], [place] [address]Wa. Jorge Dominguez Basophils/100 WBC (Bld) 0.5 % Normal 0.2-2.0 [facility] Comment on above: Performed By: #### C BC ####[facility] [address] [place], [place] [address]DgAmanda Dominguez EO # 0.1 103/ul Normal 0.0-0.7 [facility] Comment on above: Performed By: #### C BC ####[facility] [address] [place] [id number]. Jorge Dominguez Eosinophils/100 WBC (Bld) 0.9 % Normal 0.9-7.0 [facility] Comment on above: Performed By: #### C BC ####[facility] [address] [place] [id number]. Jorge Dominguez Erythrocyte distribution width (RBC) [Ratio] 13.0 % Normal 11.0-15.0 [facility] Comment on above: Performed By: #### C BC ####[facility] [address] [place] [id number]. Jorge Dominguez Hematocrit (Bld) [Volume fraction] 43.4 % Normal 42.0-54.0 [facility] Comment on above: Performed By: #### C BC ####[facility] [address] [place], [place] [address]Dr. Jorge Dominguez Hemoglobin (Bld) [Mass/Vol] 14.9 g/dL Normal 14.0-18.0 [facility] Comment on above: Performed By: #### C BC ####[facility] [address] [place] [id number]. Jorge Dominguez IG # 0.04 10e3/ul Critically high 0.00-0.03 [facility] Comment on above: Performed By: #### C BC ####[facility] [address] [place] [address]Dr. Jorge Dominguez IG % 0.4 % Normal 0.0-0.5 [facility] Comment on above: Performed By: #### C BC ####[facility] [address] [place] [phone]. Jorge Dominguez LYMPH # 1.0 103/ul Critically low 1.2-3.8 [facility] Comment on above: Performed By: #### C BC ####[facility] [address] [place], [place] [address]Dr. Jorge Dominguez Lymphocytes/100 WBC (Bld) 9.1 % Critically low 20.5-60.0 [facility] Comment on above: Performed By: #### C BC ####[facility] [address] [place] [phone]. Jorge Dominguez MANUAL DIFF REQ NO Normal [facility] Comment on above: Performed By: #### C BC ####[facility] [address] [place] [phone]. Jorge Dominguez MCH (RBC) [Entitic mass] 30.8 pg Normal 25.9-34.0 [facility] Comment on above: Performed By: #### C BC ####[facility] [address] [place], [place] [address]Dr. Jorge Dominguez MCHC (RBC) [Mass/Vol] 34.3 g/dL Normal 29.9-35.2 [facility] Comment on above: Performed By: #### C BC ####[facility] [address] [place], [place] [address]Dr. Jorge Dominguez MCV (RBC) [Entitic vol] 89.7 fL Normal 80.0-94.0 [facility] Comment on above: Performed By: #### C BC ####[facility] [address] [place], [place] [address]Dr. Jorge Dominguez MONO # 0.4 103/ul Normal 0.3-0.8 [facility] Comment on above: Performed By: #### C BC ####[facility] [address] [place] [id number]. Jorge Dominguez Monocytes/100 WBC (Bld) 4.1 % Normal 1.7-12.0 [facility] Comment on above: Performed By: #### C BC ####[facility] [address] [place], [place] [address]Dr. Jorge Dominguez NEUT # 9.0 103/ul Critically high 1.4-6.5 [facility] Comment on above: Performed By: #### C BC ####[facility] [address] [place], [place] [address]Dr. Jorge Dominguez Neutrophils/100 WBC (Bld) 85.0 % Critically high 43.0-75.0 [facility] Comment on above: Performed By: #### C BC ####[facility] [address] [place], [place] [address]Sw. Jorge Dominguez Platelet mean volume (Bld) [Entitic vol] 10.8 fL Normal 9.5-13.5 [facility] Comment on above: Performed By: #### C BC ####[facility] [address] [place], [place] [address]Bu. Jorge Dominguez PLT 210 103/ul Normal 150-450 [facility] Comment on above: Performed By: #### C BC ####[facility] [address] [place], [place] [address]Bt. Jorge Dominguez RBC 4.84 106/ul Normal 4.70-6.10 [facility] Comment on above: Performed By: #### C BC ####[facility] [address] [place], [place] [address]Ny. Jorge Dominguez WBC 10.6 103/ul Normal 4.0-11.0 [facility] Comment on above: Performed By: #### C BC ####[facility] [address] [place], [place] [address]Vd. Jorge [address] CT ABD/PELVIS WO CONon 07-08 [...] Date: 2021-07-08 05:16 Normal [facility] ER URINE PROFILEon 2 Bilirubin Ql (U) Negative Normal NEGATIVE [facility] Comment on above: Performed By: #### U MICRO, ERUR #### [facility] [address] [place] [address] Dr. Jorge Dominguez Clarity (U) CLEAR Normal CLEAR [facility] Comment on above: Performed By: #### U MICRO, ERUR #### [facility] [address] [place] [address] Dr. Jorge Dominguez Color (U) LT. YELLOW Normal YELLOW [facility] Comment on above: Performed By: #### U MICRO, ERUR #### [facility] [address] [place] [address] [address] Jorge Dominguez ERUAHD A micrscopic examination will be performed if indicated. Normal [facility] Comment on above: Performed By: #### U MICRO, ERUR #### [facility] [address] [place] [address] Dr. Jorge Dominguez Glucose Ql (U) Negative Normal NEGATIVE [facility] Comment on above: Performed By: #### U MICRO, ERUR #### [facility] [address] [place] [address] [address] Jorge Dominguez Hemoglobin Ql (U) LARGE Abnormal NEGATIVE [facility] Comment on above: Performed By: #### U MICRO, ERUR #### [facility] [address] [place] [address] Dr. Jorge Dominguez Ketones Ql (U) TRACE Abnormal NEGATIVE [facility] Comment on above: Performed By: #### U MICRO, ERUR #### [facility] [address] [place] [address] Dr. Jorge Dominguez LEUKOCYTES Negative Normal NEGATIVE [facility] Comment on above: Performed By: #### U MICRO, ERUR #### [facility] [address] [place] [address] Dr. Jorge Dominguez Nitrite Ql (U) Negative Normal NEGATIVE [facility] Comment on above: Performed By: #### U MICRO, ERUR #### [facility] [address] [place] [address] Dr. Jorge Dominguez pH (U) 5.5 [pH] Normal 5-9 [facility] Comment on above: Performed By: #### U MICRO, ERUR #### [facility] [address] [place] [address] Dr. Jorge Dominguez SPEC GRAVITY >=1.030 Abnormal 1.005-<=1.[address] [place] [address] Comment on above: Performed By: #### U MICRO, ERUR #### [facility] [address] [place] [address] Dr. Jorge Dominguez UA PROTEIN Negative Normal NEGATIVE/ TRACE [facility] Comment on above: Performed By: #### U MICRO, ERUR #### [facility] [address] [place] [address] Dr. Jorge Dominguez UR MICRO IND INDICATED Normal [facility] Comment on above: Performed By: #### U MICRO, ERUR #### [facility] [address] [place] [address] Dr. Jorge Dominguez Urobilinogen Qn (U) 0.2 {Julee'U}/dL Normal 0.2 - 1. 0 [facility] Comment on above: Performed By: #### U MICRO, ERUR #### [facility] [address] [place] [address] [address] Jorge Dominguez LACTATE/LACTIC ACIDon 2021 Lactate [Moles/Vol] 1.7 mmol/L Normal 0.4-2.0 [facility] Comment on above: Performed By: #### L ACT #### [facility] [address] [place] [address] [address] Jorge Dominguez Lactate [Moles/Vol] 2.1 mmol/L Critically high 0.4-2.0 [facility] Comment on above: Performed By: #### L ACT #### [facility] [address] [place] [address] [address] Jorge Dominguez PROF CHEM 8 (BAS METB)on Anion gap [Moles/Vol] 13.8 mmol/L Normal [facility] Comment on above: Performed By: #### B MP #### [facility] [address] [place] [address] Dr. Jorge Dominguez Calcium [Mass/Vol] 9.4 mg/dL Normal 8.5-10.1 [facility] Comment on above: Performed By: #### B MP #### [facility] [address] [place] [address] Dr. Jorge Dominguez Chloride [Moles/Vol] 104 mmol/L Normal 98-107 [facility] Comment on above: Performed By: #### B MP #### [facility] [address] [place] [address] [address] Jorge Dominguez CO2 [Moles/Vol] 24.3 mmol/L Normal 21.0-32.0 [facility] Comment on above: Performed By: #### B MP #### [facility] [address] [place] [address] Dr. Jorge Dominguez Creatinine [Mass/Vol] 1.32 mg/dL Critically high 0.70-1.30 [facility] Comment on above: Performed By: #### B MP #### [facility] [address] [place] [address] Dr. Jorge Dominguez EGFR-AF CYPRIOT >60 Normal >=60 [facility] Comment on above: Performed By: #### B MP #### [facility] [address] [place] [address] [address] Jorge Dominguez EGFR-NON AF CYPRIOT 57 mL/min/1.73m2 Critically low >=60 [facility] Comment on above: Performed By: #### B MP #### [facility] [address] [place] [address] [address] Jorge Dominguez Glucose [Mass/Vol] 166 mg/dL Critically high 74-106 [facility] Comment on above: Performed By: #### B MP #### [facility] [address] [place] [address] [address] Jorge Dominguez Potassium [Moles/Vol] 4.1 mmol/L Normal 3.5-5.1 [facility] Comment on above: Performed By: #### B MP #### [facility] [address] [place] [address] [address] Jorge Dominguez Sodium [Moles/Vol] 138 mmol/L Normal 136-145 [facility] Comment on above: Performed By: #### B MP #### [facility] [address] [place] [address] [address] Jorge Dominguez Urea nitrogen [Mass/Vol] 16.0 mg/dL Normal 7.0-18.0 [facility] Comment on above: Performed By: #### B MP #### [facility] [address] [place] [address] [address] Jorge Dominguez Urea nitrogen/Creatinine [Mass ratio] 12.1 mg/mg Normal [facility] Comment on above: Performed By: #### B MP #### [facility] [address] [place] [address] [address] Jorge Dominguez URINE MICROSCOPIC ONLYon BACTERIA TRACE Abnormal NONE SEEN [facility] Comment on above: Performed By: #### U MICRO, ERUR #### [facility] [address] [place] [address] [address] Jorge Dominguez Bacteria identified Cx Nom (U) NOT INDICATED Normal [facility] Comment on above: Performed By: #### U MICRO, ERUR #### [facility] [address] [place] [address] Dr. Jorge Dominguez CAST NONE SEEN Normal NONE SEEN [facility] Comment on above: Performed By: #### U MICRO, ERUR #### [facility] [address] [place] [address] Dr. Jorge Dominguez Crystals LM Nom (Urine sed) NONE SEEN Normal NONE SEEN [facility] Comment on above: Performed By: #### U MICRO, ERUR #### [facility] [address] [place] [address] Dr. Jorge Dominguez Epithelial cells LM Ql (Urine sed) FEW Abnormal NONE SEEN /RARE [facility] Comment on above: Performed By: #### U MICRO, ERUR #### [facility] [address] [place] [address] Dr. Jorge Dominguez MUCOUS TRACE Abnormal NONE SEEN [facility] Comment on above: Performed By: #### U MICRO, ERUR #### [facility] [address] [place] [address] Dr. Jorge Dominguez RBC 5-10 Abnormal 0-2 [facility] Comment on above: Performed By: #### U MICRO, ERUR #### [facility] [address] [place] [address] Dr. Jorge Dominguez WBC 0-2 Abnormal NONE SEEN [facility] Comment on above: Performed By: #### U MICRO, ERUR #### [facility] [address] [place] [address] Dr. Jorge Dominguez PSA SCREENING LABCORPon 12-2 Prostate specific Ag [Mass/Vol] 2.4 ng/mL Normal 0.0-4.0 [facility] Comment on above: Result Comment: Nhi GUTIERREZ methodology. . According to the [employer] [place] [employer], Serum PSA should decrease and [...] Performed By: #### P SASCLC ####[facility] [address] [place] [address]DrAmanda Dominguez XR KUB 1 VIEWon 02-22-2021 XR [...] Date: 2021-02-22 16:11 Normal [facility] AMYLASEon 02-17-2021 Amylase [Catalytic activity/Vol] 65 U/L Normal 31-110 [facility] Comment on above: Performed By: #### L WILLA MORALES ####[facility] [address] [place] [address]Dr. Jorge Dominguez CBC AUTO DIFFon 02-17-2021 BASO # 0.1 103/ul Normal 0.0-0.1 [facility] Comment on above: Performed By: #### C BC #### [facility] [address] [place] [address] Dr. Jorge Dominguez Basophils/100 WBC (Bld) 0.6 % Normal 0.2-2.0 [facility] Comment on above: Performed By: #### C BC #### [facility] [address] [place] [address] Dr. Jorge Dominguez EO # 0.3 103/ul Normal 0.0-0.7 [facility] Comment on above: Performed By: #### C BC #### [facility] [address] [place] [address] [address] Jorge Dominguez Eosinophils/100 WBC (Bld) 3.9 % Normal 0.9-7.0 [facility] Comment on above: Performed By: #### C BC #### [facility] [address] [place] [address] Dr. Jorge Dominguez Erythrocyte distribution width (RBC) [Ratio] 13.1 % Normal 11.0-15.0 [facility] Comment on above: Performed By: #### C BC #### [facility] [address] [place] [address] Dr. Jorge Dominguez Hematocrit (Bld) [Volume fraction] 43.3 % Normal 42.0-54.0 [facility] Comment on above: Performed By: #### C BC #### [facility] [address] [place] [address] Dr. Jorge Dominguez Hemoglobin (Bld) [Mass/Vol] 14.7 g/dL Normal 14.0-18.0 [facility] Comment on above: Performed By: #### C BC #### [facility] [address] [place] [address] Dr. Jorge Dominguez IG # 0.03 10e3/ul Normal 0.00-0.03 [facility] Comment on above: Performed By: #### C BC #### [facility] [address] [place] [address] Dr. Jorge Dominguez IG % 0.4 % Normal 0.0-0.5 [facility] Comment on above: Performed By: #### C BC #### [facility] [address] [place] [address] Dr. Jorge Dominguez LYMPH # 1.2 103/ul Normal 1.2-3.8 [facility] Comment on above: Performed By: #### C BC #### [facility] [address] [place] [address] Dr. Jorge Dominguez Lymphocytes/100 WBC (Bld) 14.8 % Critically low 20.5-60.0 [facility] Comment on above: Performed By: #### C BC #### [facility] [address] [place] [address] Dr. Jorge Dominguez MANUAL DIFF REQ NO Normal [facility] Comment on above: Performed By: #### C BC #### [facility] [address] [place] [address] Dr. Jorge Dominguez MCH (RBC) [Entitic mass] 30.6 pg Normal 25.9-34.0 [facility] Comment on above: Performed By: #### C BC #### [facility] [address] [place] [address] Dr. Jorge Dominguez MCHC (RBC) [Mass/Vol] 33.9 g/dL Normal 29.9-35.2 [facility] Comment on above: Performed By: #### C BC #### [facility] [address] [place] [address] Dr. Jorge Dominguez MCV (RBC) [Entitic vol] 90.0 fL Normal 80.0-94.0 [facility] Comment on above: Performed By: #### C BC #### [facility] [address] [place] [address] Dr. Jorge Dominguez MONO # 0.5 103/ul Normal 0.3-0.8 [facility] Comment on above: Performed By: #### C BC #### [facility] [address] [place] [address] Dr. Jorge Dominguez Monocytes/100 WBC (Bld) 6.1 % Normal 1.7-12.0 [facility] Comment on above: Performed By: #### C BC #### [facility] [address] [place] [address] Dr. Jorge Dominguez NEUT # 6.2 103/ul Normal 1.4-6.5 [facility] Comment on above: Performed By: #### C BC #### [facility] [address] [place] [address] Dr. Jorge Dominguez Neutrophils/100 WBC (Bld) 74.2 % Normal 43.0-75.0 [facility] Comment on above: Performed By: #### C BC #### [facility] [address] [place] [address] Dr. Jorge Dominguez Platelet mean volume (Bld) [Entitic vol] 10.8 fL Normal 9.5-13.5 [facility] Comment on above: Performed By: #### C BC #### [facility] [address] [place] [address] Dr. Jorge Dominguez PLT 230 103/ul Normal 150-450 [facility] Comment on above: Performed By: #### C BC #### [facility] [address] [address] [address] Jorge Dominguez RBC 4.81 106/ul Normal 4.70-6.10 [facility] Comment on above: Performed By: #### C BC #### [facility] [address] [id number] Jorge Dominguez WBC 8.4 103/ul Normal 4.0-11.0 [facility] Comment on above: Performed By: #### C BC #### [facility] [address] [address] [address] ABD/PELV W CONon [...] Date: 2021-02-17 07:38 Normal [facility] ER URINE PROFILEon 1 Bilirubin Ql (U) Negative Normal NEGATIVE [facility] Comment on above: Performed By: #### E RUR #### [facility] [address] [place] [address] Dr. Jorge Dominguez Clarity (U) CLEAR Normal CLEAR [facility] Comment on above: Performed By: #### E RUR #### [facility] [address] [place] [address] Dr. Jorge Dominguez Color (U) LT. YELLOW Normal YELLOW [facility] Comment on above: Performed By: #### E RUR #### [facility] [address] [place] [address] Dr. Jorge MURRAY A micrscopic examination will be performed if indicated. Normal [facility] Comment on above: Performed By: #### E RUR #### [facility] [address] [place] [address] Dr. Jorge Dominguez Glucose Ql (U) Negative Normal NEGATIVE [facility] Comment on above: Performed By: #### E RUR #### [facility] [address] [place] [address] Dr. Jorge Dominguez Hemoglobin Ql (U) Negative Normal NEGATIVE [facility] Comment on above: Performed By: #### E RUR #### [facility] [address] [place] [address] Dr. Jorge Dominguez Ketones Ql (U) Negative Normal NEGATIVE [facility] Comment on above: Performed By: #### E RUR #### [facility] [address] [place] [address] Dr. Jorge Dominguez LEUKOCYTES Negative Normal NEGATIVE [facility] Comment on above: Performed By: #### E RUR #### [facility] [address] [place] [address] Dr. Jorge Dominguez Nitrite Ql (U) Negative Normal NEGATIVE [facility] Comment on above: Performed By: #### E RUR #### [facility] [address] [address] [address] Jorge Dominguez pH (U) 7.0 [pH] Normal 5-9 [facility] Comment on above: Performed By: #### E RUR #### [facility] [address] [place] [address] Dr. Jorge Dominguez SPEC GRAVITY 1.020 Normal 1.005-<=1.02 5 [facility] Comment on above: Performed By: #### E RUR #### [facility] [address] [place] [address] Dr. Jorge Dominguez UA PROTEIN Negative Normal NEGATIVE/ TRACE [facility] Comment on above: Performed By: #### E RUR #### [facility] [address] [place] [address] Dr. Jorge Dominguez UR MICRO IND NOT INDICATED Normal [facility] Comment on above: Performed By: #### E RUR #### [facility] [address] [place] [address] Dr. Jorge Dominguez Urobilinogen Qn (U) 0.2 {Julee'U}/dL Normal 0.2 - 1. 0 [facility] Comment on above: Performed By: #### E RUR #### [facility] [address] [place] [address] Dr. Jorge Dominguez LIPASEon 02-17-2021 Lipase [Catalytic activity/Vol] 102.0 U/L Normal 23.0-300.0 [facility] Comment on above: Performed By: #### L IPAWILLA ####[facility] [address] [place] [address]Dr. Jorge Dominguez PROF 14(COMP METB)on 021 Albumin [Mass/Vol] 4.3 g/dL Normal 3.5-5.0 [facility] Comment on above: Performed By: #### C MP #### [facility] [address] [place] [address] Dr. Jorge Dominguez Albumin/Globulin [Mass ratio] 1.2 {ratio} Normal [facility] Comment on above: Performed By: #### C MP #### [facility] [address] [address] [address] Jorge Dominguez ALP [Catalytic activity/Vol] 54 U/L Normal 38-126 [facility] Comment on above: Performed By: #### C MP #### [facility] [address] [address] [address] Jorge Dominguez ALT [Catalytic activity/Vol] 93 U/L Critically high 21-72 [facility] Comment on above: Performed By: #### C MP #### [facility] [address] [address] [address] Jorge Dominguez Anion gap [Moles/Vol] 14.7 mmol/L Normal [facility] Comment on above: Performed By: #### C MP #### [facility] [address] [place] [address] Dr. Jorge Dominguez AST [Catalytic activity/Vol] 36 U/L Normal 17-59 [facility] Comment on above: Performed By: #### C MP #### [facility] [address] [place] [address] Dr. Jorge Dominguez Bilirubin [Mass/Vol] 0.6 mg/dL Normal 0.2-1.3 [facility] Comment on above: Performed By: #### C MP #### [facility] [address] [place] [address] Dr. Jorge Dominguez Calcium [Mass/Vol] 9.4 mg/dL Normal 8.4-10.2 [facility] Comment on above: Performed By: #### C MP #### [facility] [address] [address] [address] Jorge Dominguez Chloride [Moles/Vol] 103 mmol/L Normal 98-107 [facility] Comment on above: Performed By: #### C MP #### [facility] [address] [address] [address] Jorge Dominguez CO2 [Moles/Vol] 26.2 mmol/L Normal 22.0-30.0 [facility] Comment on above: Performed By: #### C MP #### [facility] [address] [address] [address] Jorge Dominguez Creatinine [Mass/Vol] 1.24 mg/dL Normal 0.66-1.25 [facility] Comment on above: Performed By: #### C MP #### [facility] [address] [address] [address] Jorge Dominguez EGFR-AF CYPRIOT >60 Normal >=60 [facility] Comment on above: Performed By: #### C MP #### [facility] [address] [address] [address] Jorge Dominguez EGFR-NON AF CYPRIOT >60 Normal >=60 [facility] Comment on above: Performed By: #### C MP #### [facility] [address] [place] [address] Dr. Jorge Dominguez Globulin (S) [Mass/Vol] 3.5 g/dL Normal [facility] Comment on above: Performed By: #### C MP #### [facility] [address] [place] [address] Dr. Jorge Dominguez Glucose [Mass/Vol] 160 mg/dL Critically high 74-106 [facility] Comment on above: Performed By: #### C MP #### [facility] [address] [place] [address] Dr. Jorge Dominguez Potassium [Moles/Vol] 3.9 mmol/L Normal 3.4-5.0 [facility] Comment on above: Performed By: #### C MP #### [facility] [address] [place] [address] Dr. Jorge Dominguez Protein [Mass/Vol] 7.8 g/dL Normal 6.1-8.2 [facility] Comment on above: Performed By: #### C MP #### [facility] [address] [place] [address] Dr. Jorge Dominguez Sodium [Moles/Vol] 140 mmol/L Normal 137-145 [facility] Comment on above: Performed By: #### C MP #### [facility] [address] [place] [address] Dr. Jorge Dominguez Urea nitrogen [Mass/Vol] 13.0 mg/dL Normal 9.0-20.0 [facility] Comment on above: Performed By: #### C MP #### [facility] [address] [place] [address] [address] [address] Jorge Dominguez Urea nitrogen/Creatinine [Mass ratio] 10.5 mg/mg Normal [facility] Comment on above: Performed By: #### C MP #### [facility] [address] [place], [place] [address] Dr. Jorge Dominguez T-Spoton 01-18-2019 T-Spot. TB Test Normal [facility] Comment on above: Result Comment: [facility] [address] [place] [address] (NOTE) T-SPOT.TB Test Results --------- T-SPOT TB [...] R UBI, JOSEY, RADHA, VZI, TSPOT #### [id number] [place] [address] Log Buncher: Santy Armstrong MD Measles (Rubeola) Imon 01-16 Measles (Rubeola) Im 5.30 Normal >1.09 [facility] Comment on above: Result Comment: Interpretation: IMMUNE Reference Range: <0.91 Not Immune 0.91-1.09 Equivocal >1.09 Immune Performed By: #### R UBI, JOSEY, RADHA, VZI, TSPOT #### [facility] [address] [place] [address] Log Buncher: Santy Armstrong MD Mumps,Immun,Abon 01-16-2019 Mumps,Immun,Ab 0.83 Low >1.09 [facility] Comment on above: Result Comment: Interpretation: Not Immune Reference Range: <0.91 Not Immune 0.91-1.09 Equivocal >1.09 Immune Performed By: #### R UBI, JOSEY, RADHA, VZI, TSPOT #### [address] [address] Log Buncher: Santy Armstrong MD VZ Immunityon 01-16-2019 VZ Immunity 1.15 Normal >1.09 [facility] Comment on above: Result Comment: Interpretation: IMMUNE Reference Range: <0.91 Not Immune 0.91-1.09 Equivocal >1.09 Immune Performed By: #### R UBI, JOSEY, RADHA, VZI, TSPOT #### [address] [address] Log Buncher: Santy Armstrong MD Rubella Ab, IgGon 01-14-2019 Rubella Ab, IgG 43.3 IU/mL Normal [facility] Comment on above: Result Comment: REFERENCE RANGE: <5.0 NON-REACTIVE (non-immune) 5.0 TO 9.9 EQUIVOCAL >=10.0 REACTIVE (immune) Performed By: #### R UBI, JOSEY, RADHA, VZI, TSPOT #### [facility] [employer] [address] [place] [address] Log Buncher: Santy Armstrong MD Rubella antibody, IgGon 01-04 Rubella virus IgG Ql (S) 43.3 IU/mL [place], [place] Comment on above: REFERENCE RANGE: <5.0 NON-REACTIVE (non-immune) 5.0 TO 9.9 EQUIVOCAL >=10.0 REACTIVE (immune) Vital Signs Date Time Vital Sign Value Performing Clinician Donavan cole 06-21-2023 13:17-0400 Blood Pressure Location Enrique PATELL [facility] 06-21-2023 13:17-0400 Diastolic blood pressure 84 mm[Hg] Enrique NILL [facility] [place] 06-21-2023 13:17-0400 Heart rate 76 /min Enrique NILL [facility] [place] 06-21-2023 13:17-0400 Respiratory rate 16 /min Enrique NILL [facility] [place] 06-21-2023 13:17-0400 Systolic blood pressure 120 mm[Hg] Enrique NILL [facility] [place] Encounters Encounter Date Encounter Type Care Provider Facility Start: 06-21-2023 End: 06-21-2023 ambulatory Enrique SÁNCHEZ Facility:[facility] Start: 06-21-2023 End: 06-21-2023 Patient encounter procedure Enrique Goodson GONZALO [facility] [place] Start: 06-01-2023 Office outpatient ne w 30 minutes Alyse Sanford Other [facility] Office Start: 05-18-2023 ambulatory Enrique SÁNCHEZ Facility:[facility] Start: 10-20-2021 End: 10-20-2021 Patient encounter procedure CLEO HEALY [facility] [place] Start: 07-08-2021 End: 07-08-2021 ambulatory CASSANDRA SAAVEDRA Facility:[facility] Start: 02-22-2021 End: 02-23-[address] KERA MARTINEZ Facility:[facility] Start: 02-17-2021 End: 02-17-[address] ARAVIND EDMONDS Facility:[facility] Start: 01-14-2019 End: 01-15-2019 Patient encounter procedure ENRIQUE RIETHMILLER [facility] Start: 01-14-2019 End: 01-14-2019 Subsequent hospital visit by physician Yolanda SANTACRUZ Laboratory Procedures Date Procedure Procedure Detail Performing Clinician Start: 01-14-2019 Antibody mumps ENRIQUE THOMSON Start: 01-14-2019 Antibody rubeola MICHBRYANNA Roach [...] 11-04-2018 Influenza vaccination Flu vaccine (# 1) [place], [place] Start: 2010 Lipid screen Lipid screen [place], [place] Start: 1989 DTaP/Tdap/Td vaccine (1 - Tdap) DTaP/Tdap/Td vaccine (1 - Tdap) [place], [place] Start: 1985 HIV screen HIV screen [place], [place] End: 01-14-2019 Mumps Antibody, IgG Mumps Antibody, IgG Lab Routine Once for 1 Occurrences starting 01/14/2019 until 01/14/2019 [place] Comment on above: Once for 1 Occurrenc es starting 01/14/2019 until 01/14/2019 Mumps Antibody, IgG Mumps Antibo dy, IgG Lab Routine 01/14/2019 3:03 PM EST [place], [place] End: 01-14-2019 Rubeola Antibody, IgG Rubeola Antibody, IgG Lab Routine Once for 1 Occurrences starting 01/14/2019 until 01/14/2019 [place] Comment on above: Once for 1 Occurrenc es starting 01/14/2019 until 01/14/2019 Rubeola Antibody, IgG Rubeola An tibody, IgG Lab Routine 01/14/2019 3:03 PM [place], [place] End: 01-14-2019 Tb antigen response gamma interferon t-cell susp T-Spot TB Test Lab Routine Once for 1 Occurrences starting 01/14/2019 until 01/14/2019 [place] Comment on above: Once for 1 Occurrenc es starting 01/14/2019 until 01/14/2019 Tb antigen response gamma interferon t-cell susp T-Spot TB Test Lab Routine 01/14/2019 3:03 PM [place], [place] End: 01-14-2019 Varicella Zoster Antibody, IgG Varicella Zoster Antibody, IgG Lab Routine Once for 1 Occurrences starting 01/14/2019 until 01/14/2019 [place] Comment on above: Once for 1 Occurrenc es starting 01/14/2019 until 01/14/2019 Varicella Zoster Antibody, IgG Varicella Zoster Antibody, IgG Lab Routine 01/14/2019 3:03 PM [place], [place] Immunizations Immunization Date Immunization Notes Care Provider [facility] 12-28-2022 influenza virus vaccine, unspecified formulation Enrique SÁNCHEZ [facility] 03-03-2021 SARS-CoV-2 (COVID-19 ) mRNA-1273 vaccine Enrique GONZALO [facility] 02-03-2021 SARS-CoV-2 (COVID-19 ) mRNA-1273 vaccine Enrique SÁNCHEZ [facility] Comment on above: Result Comment: 2023: [id number] Payers Date Payer Category Payer Unknown [id number] [id number] [id number] 1970 Unknown [id number] [id number] [id number] 1970 Unknown [id number] [id number] 1970 Unknown [id number] 1959 Unknown [id number] 1959 Unknown [id number] Social History Date Type Detail Facility Start: 05-21-2014 Tobacco smoking status NHIS Never smoker [place] Start: 05-21-2014 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) [place] Sex Assigned At Not on file [place] Start: 02-22-2021 Light tobacco smoker (finding) [facility] Male [facility] Start: *Tobacco beqom Start: 06-21-2023 Tobacco smoking status Occasional tobacco smoker (finding) [facility] [place] Tobacco smoking status Never [facility] [place] Functional Status Date Assessment Result Facility 06-21-2023 Functional Status N/A [facility] Clinical Note 06-21-2023 Note Date & [...] (COVID-19) mRNA-1273 vaccine 02/03/2021 Recorded 2023-05-22: [id number] [facility] Comment on above: Result Comment: Elec tronically Signed By: GONZALO PERSON, Enrique Mcmahon\Date and Time Signed: 06/21/23 14:25 EDT Evaluation + Plan note Note Date & Type Note Facility Evaluation + Plan note No data available for this section [facility] Hospital Discharge instructions Note Date & Type Note Facility Hospital Discharge instructions No data available for this section [facility] Progress note Note Date & Type Note Facility Progress note No data available for this section [facility] Advance Directives No Advanced Directives Records FoundDocuments on File Type Date Recorded 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 Advance Directives and Living Will Power of Process Excellence Manager Summary Purpose Family History No Family History Records FoundNo Family History Records Found No data available for this section No Family History Records Found Additional Source Comments (unrecognized sect ion and content) No Status Records FoundNo Status Records FoundNo Status Records Found INFORMATION SOURCE (unrecogn ized section and content) DATE CREATED AUTHOR 01/18/2019 [facility] DATE CREATED AUTHOR AUTHOR'S ORGANIZ ATION 07/12/2021 [facility] DATE CREATED AUTHOR AUTHOR'S BRODERICK SELBY 08/11/2023 Kamran Overton [facility] Care Team (unrecognized sect ion and content) Personnel Name: YOLANDA OLGUIN MD Address: [address] [place] [address] Personnel Name: Adelfo Garibay MD Address: Address: [facility] FOR RECORDS PERTAINING TO PATIENTS WHO [...] BE BASED ON THE PRIMARY CLINICAL RECORDS. [facility] [employer] [facility]. provides no warranty or guarantee of the accuracy or completeness of information in this document.
[2024-04-16 10:21] LABS: Basophils Absolute Auto 0.1 10^3/uL (0.0-0.1); Basophils Percent Auto 1.1 % (0.2-2.0); Eosinophils Absolute Auto 0.3 10^3/uL (0.0-0.7); Eosinophils Percent Auto 5.4 % (0.9-7.0); Hematocrit 43.1 % (42.0-54.0); Hemoglobin 14.8 g/dL (14.0-18.0); Immature Granulocytes Abs Auto 0.01 10^3/uL (0.00-0.03); Immature Granulocytes Pct Auto 0.2 % (0.0-0.5); Lymphocytes Absolute Auto 1.2 10^3/uL (1.2-3.8); Lymphocytes Percent Auto 21.5 % (20.5-60.0); Mean Corpuscular HGB Conc 34.3 g/dL (29.9-35.2); Mean Corpuscular Volume 90.2 fL (80.0-94.0); Mean Platelet Volume 10.8 fL (9.5-13.5); Monocytes Absolute Auto 0.4 10^3/uL (0.3-0.8); Monocytes Percent Auto 6.9 % (1.7-12.0); Neutrophils Absolute Auto 3.5 10^3/uL (1.4-6.5); Neutrophils Percent Auto 64.9 % (43.0-75.0); Platelet Count 221 10^3/uL (150-450); Red Blood Count 4.78 10^6/uL (4.70-6.10); Red Cell Distribution Width 13.1 % (11.0-15.0); White Blood Count 5.4 10^3/uL (4.0-11.0)
[2024-04-16 10:45] LABS: Estimated Average Glucose 100 mg/dL; Glycohemoglobin A1C 5.1 % (4.5-6.2)
[2024-04-16 11:15] LABS: Alanine Aminotransferase 112 U/L (16-63); Albumin Globulin Ratio 1.3; Albumin Level 4.4 g/dL (3.4-5.0); Alkaline Phosphatase 48 U/L (46-116); Anion Gap 13.8; Aspartate Amino Transferase 43 U/L (15-37); BUN Creatinine Ratio 19.1; Bilirubin Total 0.6 mg/dL (0.2-1.0); Calcium 9.2 mg/dL (8.5-10.1); Carbon Dioxide 29.3 mmol/L (21.0-32.0); Chloride 103 mmol/L (98-107); Chol HDL Ratio 3.7; Cholesterol 152 mg/dL (<=200); Estimated GFR (African America >60 (>=60 mL/min/1.73m^2); Estimated GFR (Non-African Ame >60 (>=60 mL/min/1.73m^2); Globulin 3.4 g/dL; Glucose 108 mg/dL (74-106); HDL Cholesterol 41 mg/dL (40-60); LDL Cholesterol Calculated 84.8 mg/dL; Potassium 4.1 mmol/L (3.5-5.1); Sodium 142 mmol/L (136-145); Thyroid Stimulating Hormone 3.915 uIU/mL (0.358-3.740); Total Protein 7.8 g/dL (6.4-8.2); Triglycerides 131 mg/dL (<=150); VLDL CHOLESTEROL 26.2 mg/dL
[2024-04-16 11:17] LABS: Prostate Specific Antigen Scrn 3.05 ng/mL (<=4.00)
[2024-04-17 04:07] LABS: CA 19-9 16 U/mL (0-35)
== END 2024-04-16 09:56 | disposition home or self-care (01) ==
LOC: LAB 09:56
PROVIDERS: PCP Family Medicine; Visit Provider Family Medicine
DX: Z00.00 Encounter for general adult medical examination without abnormal findings (principal)
CPT/HCPCS: 36415; 80053; 80061; 83036; 84436; 84443; 84481; 84550; 85025; 86301; G0103

== ENCOUNTER 2024-05-07 07:28 | Outpatient (OUT) | payer BC, SELFPAY ==
--- NOTE | 2024-05-07 07:30 | CA_ITS ---
Patient Name: KENNY DEL RIO MR#: [id number] : 1970 Exam Date: 05/07/2024 Ordering Doctor: DR BLAS SIDDIQUI . ECHOCARDIOGRAM REPORT PROCEDURE: CA ECHO DOPPLER COMPLETE INDICATIONS: Murmur COMPARISON: None. DESCRIPTION: COMPLETE ECHOCARDIOGRAM Real-time transthoracic echocardiography with 2D, M-mode, spectral and color flow Doppler performed. QUALITY: Technical quality was good. LEFT VENTRICLE: Normal chamber size. Mild concentric hypertrophy. Normal systolic function. LV EF: Normal left ventricular ejection fraction, (>55%). DIASTOLIC: Normal diastolic function. ATRIAL SEPTUM: Visually appears intact. LEFT ATRIUM: Normal chamber size. RIGHT ATRIUM: Normal chamber size. RIGHT VENTRICLE: Normal chamber size. Normal right ventricular systolic function. TRICUSPID VALVE: Normal mobility and thickness. No stenosis with trivial regurgitation. Unable to assess right-sided pressures due to lack of measurable tricuspid regurgitation. MITRAL VALVE: Normal mobility and thickness. No evidence of mitral valve stenosis. There is no mitral annular calcification. No mitral regurgitation. AORTIC VALVE: Likely trileaflet valve. Moderately calcified aortic valve. Mildly diminished mobility. No evidence of significant aortic valve stenosis. Trivial aortic regurgitation. AORTIC ROOT: Normal diameter and appearance, measuring 3.8 cm. Ascending aorta is normal in size, measuring 3.2 cm. PULMONIC VALVE: Normal thickness and mobility. No stenosis. No regurgitation. PERICARDIUM: No evidence of pericardial effusion. IVC: IVC is dilated (2.2 cm), does not fully collapse. PLEURA: CONCLUSION: 1. Mild concentric left ventricular hypertrophy with normal systolic function. LVEF is estimated at 60%. 2. Normal right ventricular size and systolic function. 3. Moderately calcified aortic valve without significant stenosis or regurgitation. The aortic valve appears to be trileaflet. 4. No pericardial effusion. 5. Unable to assess right-sided pressures due to lack of measurable tricuspid regurgitation. Adult Echocardiography Procedure Report Left Ventricle LVEDD (3.7 - 5.6 cm): 3.76 cm LVESD (2.2 - 4.0 cm): 2.30 cm LVIVS thickness (0.6 - 1.2 cm): 1.39 cm LVPW thickness (0.5 - 1.0 cm): 1.10 cm e': 0.12 m/s E - e': 6.17 LVOT Max Gradient: 3.87 mm[Hg] LVOT Area (cm2): 0.98 m/s Peak Velocity (LVOT): 0.98 m/s Mean Velocity (LVOT): 0.69 m/s LVOT Diameter 2.44 cm Left Atrium LA Volume Index (2D A2C): 24.45 ml/m2 Left Atrium Systolic Dimension: 3.31 cm Mitral Valve MV E to A Ratio: 0.98 Mitral Valve A-Wave Peak Velocity: 0.75 m/s Mitral Valve E-Wave Peak Velocity: 0.73 m/s Right Ventricle Aorta AO Root Diam: 3.78 cm Ascending Ao Diam: 3.25 cm Aortic Valve AoV Area (Peak Fabian): 2.61 cm2, 2.61 cm2 AoV Area (VTI): 2.40 cm2, 2.40 cm2 Peak Velocity(Antegrade Flow): 1.76 m/s Peak Gradient(Antegrade Flow): 12.39 mm[Hg] Mean Velocity(Antegrade Flow): 1.18 m/s Mean Gradient(Antegrade Flow): 6.33 mm[Hg] Velocity Time Integral: 36.28 cm Tricuspid Valve Pulmonic Valve Mean Gradient: 2.46 mm[Hg] Mean Velocity: 0.71 m/s Peak Velocity: 1.19 m/s, 1.23 m/s Peak Gradient: 6.10 mm[Hg], 5.66 mm[Hg] Right Atrium Right Atrium Systolic Pressure: 55.51 ml, 55.51 ml Dictated by: Giorgio Vargas M.D. on 05/07/2024 at 19:19 Approved by: Giorgio Vargas M.D. on 05/07/2024 at 19:23
--- OUTSIDE RECORDS SUMMARY | 2024-05-07 07:32 | XMS_ITS | CCD ---
Author Organization [facility] Inform ion Partnership CATALOGUE LIBRARIAN [facility] Care Team Providers Care Tobacco Dipper Name Role Phone Yolanda Olguin Primary Care [...] Consulting Unavailable YOLANDA OLGUIN Primary Care Physician [phone] Alyse Sanford Primary Care Physician Unavailab Alyse [...] Range Facility Outside Colonoscopyon 2023 Outside Colonoscopy [id number]#1.00T IFF [facility] Reminderson 08-10-2023 Reminders - From: Terri Pritchett LPN To: GSN - Clinical; Sent: 08/10/2023 12:01:47 EDT Show up: 07/08/2033 07:00:00 EDT Subject: colonoscopy recall Due Date/Time: 08/08/2033 07:00:00 EDT Reminder/Recall Patient due for screening colonoscopy 08/08/2033. [facility] Insurance Correspondenceon 0 07-26-2023 Insurance Correspondence [id number]#1.00 TIFF [facility] Consent for Procedure/Surger yon 06-22-2023 Consent for Procedure/Surgery [id number]#1.00T IFF [facility] Ambulatory Visit Summaryon 0 06-21-2023 Ambulatory [...] for choosing us for your care. Normal [facility] Facesheeton 06-21-2023 Facesheet [id number]#1.00 TIFF Normal [facility] No Panel Informationon 05-31 Tobacco smoking status Non-Smoker Invalid Interpretation Code [employer] Physician Referralon 024 Physician Referral [id number]#1.00T IFF Normal [facility] CBC AUTO DIFFon 07-08-2021 BASO # 0.1 103/ul Normal 0.0-0.1 [facility] Comment on above: Performed By: #### C BC ####[facility] [address] [place], [place] [address]Og. Jorge Dominguez Basophils/100 WBC (Bld) 0.5 % Normal 0.2-2.0 [facility] Comment on above: Performed By: #### C BC ####[facility] [address] [place], [place] [address]PgAmanda Dominguez EO # 0.1 103/ul Normal 0.0-0.7 [facility] Comment on above: Performed By: #### C BC ####[facility] [address] [place] [address]Dr. Jorge Dominguez Eosinophils/100 WBC (Bld) 0.9 % Normal 0.9-7.0 [facility] Comment on above: Performed By: #### C BC ####[facility] [address] [place] [address]Dr. Jorge Dominguez Erythrocyte distribution width (RBC) [Ratio] 13.0 % Normal 11.0-15.0 [facility] Comment on above: Performed By: #### C BC ####[facility] [address] [place] [address]Dr. Jorge Dominguez Hematocrit (Bld) [Volume fraction] 43.4 % Normal 42.0-54.0 [facility] Comment on above: Performed By: #### C BC ####[facility] [address] [place], [place] [address]Dr. Jorge Dominguez Hemoglobin (Bld) [Mass/Vol] 14.9 g/dL Normal 14.0-18.0 [facility] Comment on above: Performed By: #### C BC ####[facility] [address] [place] [address]Dr. Jorge Dominguez IG # 0.04 10e3/ul Critically high 0.00-0.03 [facility] Comment on above: Performed By: #### C BC ####[facility] [address] [place] [address]Dr. Jorge Dominguez IG % 0.4 % Normal 0.0-0.5 [facility] Comment on above: Performed By: #### C BC ####[facility] [address] [place] [address]Dr. Jorge Dominguez LYMPH # 1.0 103/ul Critically low 1.2-3.8 [facility] Comment on above: Performed By: #### C BC ####[facility] [address] [place], [place] [address]Dr. Jorge Dominguez Lymphocytes/100 WBC (Bld) 9.1 % Critically low 20.5-60.0 [facility] Comment on above: Performed By: #### C BC ####[facility] [address] [place] [address]Dr. Jorge Dominguez MANUAL DIFF REQ NO Normal [facility] Comment on above: Performed By: #### C BC ####[facility] [address] [place] [address]Dr. Jorge Dominguez MCH (RBC) [Entitic mass] 30.8 pg Normal 25.9-34.0 [facility] Comment on above: Performed By: #### C BC ####[facility] [address] [employer], [place] [address]Dr. Jorge Dominguez MCHC (RBC) [Mass/Vol] 34.3 g/dL Normal 29.9-35.2 [facility] Comment on above: Performed By: #### C BC ####[facility] [address] [place], [place] [address]Dr. Jorge Dominguez MCV (RBC) [Entitic vol] 89.7 fL Normal 80.0-94.0 [facility] Comment on above: Performed By: #### C BC ####[facility] [address] [employer], [place] [address]Dr. Jorge Dominguez MONO # 0.4 103/ul Normal 0.3-0.8 [facility] Comment on above: Performed By: #### C BC ####[facility] [address] [place] [address]Dr. Jorge Dominguez Monocytes/100 WBC (Bld) 4.1 % Normal 1.7-12.0 [facility] Comment on above: Performed By: #### C BC ####[facility] [address] [employer], [place] [address]Dr. Jorge Dominguez NEUT # 9.0 103/ul Critically high 1.4-6.5 [facility] Comment on above: Performed By: #### C BC ####[facility] [address] [employer], [place] [address]Dr. Jorge Dominguez Neutrophils/100 WBC (Bld) 85.0 % Critically high 43.0-75.0 [facility] Comment on above: Performed By: #### C BC ####[facility] [address] [place], [place] [address]Za. Jorge Dominguez Platelet mean volume (Bld) [Entitic vol] 10.8 fL Normal 9.5-13.5 [facility] Comment on above: Performed By: #### C BC ####[facility] [address] [place], [place] [address]Zr. Jorge Dominguez PLT 210 103/ul Normal 150-450 [facility] Comment on above: Performed By: #### C BC ####[facility] [address] [place], [place] [address]Di. Jorge Dominguez RBC 4.84 106/ul Normal 4.70-6.10 [facility] Comment on above: Performed By: #### C BC ####[facility] [address] [place], [place] [address]Qk. Jorge Dominguez WBC 10.6 103/ul Normal 4.0-11.0 [facility] Comment on above: Performed By: #### C BC ####[facility] [address] [place], [place] [address]Hm. Jorge [address] CT ABD/PELVIS WO CONon 07-08 [...] CATHLEEN MILLER Date: 2021-07-08 05:16 Normal [facility] ER URINE PROFILEon 2 Bilirubin Ql (U) Negative Normal NEGATIVE [facility] Comment on above: Performed By: #### U MICRO, ERUR #### [facility] [address] [place] [address] Dr. Jorge Dominguez Clarity (U) CLEAR Normal CLEAR [facility] Comment on above: Performed By: #### U MICRO, ERUR #### [facility] [address] [place] [address] Dr. Jorge Dominguez Color (U) LT. YELLOW Normal YELLOW [facility] Comment on above: Performed By: #### U MICRO, ERUR #### [facility] [address] [place] [address] [address] Jorge Dominguez ERUAHD A micrscopic examination will be performed if indicated. Normal [facility] Comment on above: Performed By: #### U MICRO, ERUR #### [facility] [address] [place] [address] Dr. Jorge Dominguez Glucose Ql (U) Negative Normal NEGATIVE [facility] Comment on above: Performed By: #### U MICRO, ERUR #### [facility] [address] [address] [address] Jorge Dominguez Hemoglobin Ql (U) LARGE Abnormal NEGATIVE [facility] Comment on above: Performed By: #### U MICRO, ERUR #### [facility] [address] [place] [address] Dr. Jorge Dominguez Ketones Ql (U) TRACE Abnormal NEGATIVE [facility] Comment on above: Performed By: #### U MICRO, ERUR #### [facility] [address] [place] [address] Dr. Jorge Dominguez LEUKOCYTES Negative Normal NEGATIVE [facility] Comment on above: Performed By: #### U MICRO, ERUR #### [facility] [address] [place] [address] Dr. Jorge Dominguez Nitrite Ql (U) Negative Normal NEGATIVE [facility] Comment on above: Performed By: #### U MICRO, ERUR #### [facility] [address] [place] [address] Dr. Jorge Dominguez pH (U) 5.5 [pH] Normal 5-9 [facility] Comment on above: Performed By: #### U MICRO, ERUR #### [facility] [address] [place] [address] Dr. Jorge Dominguez SPEC GRAVITY >=1.030 Abnormal 1.005-<=1.[address] [place] [address] Comment on above: Performed By: #### U MICRO, ERUR #### [facility] [address] [place] [address] Dr. Jorge Dominguez UA PROTEIN Negative Normal NEGATIVE/ TRACE [facility] Comment on above: Performed By: #### U MICRO, ERUR #### [facility] [address] [place] [address] Dr. Jorge Dominguez UR MICRO IND INDICATED Normal [facility] Comment on above: Performed By: #### U MICRO, ERUR #### [facility] [address] [place] [address] Dr. Jorge Dominguez Urobilinogen Qn (U) 0.2 {Julee'U}/dL Normal 0.2 - 1. 0 [facility] Comment on above: Performed By: #### U MICRO, ERUR #### [facility] [address] [address] [address] Jorge Dominguez LACTATE/LACTIC ACIDon 2021 Lactate [Moles/Vol] 1.7 mmol/L Normal 0.4-2.0 [facility] Comment on above: Performed By: #### L ACT #### [facility] [address] [address] [address] Jorge Dominguez Lactate [Moles/Vol] 2.1 mmol/L Critically high 0.4-2.0 [facility] Comment on above: Performed By: #### L ACT #### [facility] [address] [address] [address] Jorge Dominguez PROF CHEM 8 (BAS METB)on Anion gap [Moles/Vol] 13.8 mmol/L Normal [facility] Comment on above: Performed By: #### B MP #### [facility] [address] [place] [address] Dr. Jorge Dominguez Calcium [Mass/Vol] 9.4 mg/dL Normal 8.5-10.1 [facility] Comment on above: Performed By: #### B MP #### [facility] [address] [place] [address] Dr. Jorge Dominguez Chloride [Moles/Vol] 104 mmol/L Normal 98-107 [facility] Comment on above: Performed By: #### B MP #### [facility] [address] [place] [address] [address] Jorge Dominguez CO2 [Moles/Vol] 24.3 mmol/L Normal 21.0-32.0 [facility] Comment on above: Performed By: #### B MP #### [facility] [address] [place] [address] Dr. Jorge Dominguez Creatinine [Mass/Vol] 1.32 mg/dL Critically high 0.70-1.30 [facility] Comment on above: Performed By: #### B MP #### [facility] [address] [place] [address] Dr. Jorge Dominguez EGFR-AF LEBANESE >60 Normal >=60 [facility] Comment on above: Performed By: #### B MP #### [facility] [address] [address] [address] Jorge Dominguez EGFR-NON AF LEBANESE 57 mL/min/1.73m2 Critically low >=60 [facility] Comment on above: Performed By: #### B MP #### [facility] [address] [address] [address] Jorge Dominguez Glucose [Mass/Vol] 166 mg/dL Critically high 74-106 [facility] Comment on above: Performed By: #### B MP #### [facility] [address] [address] [address] Jorge Dominguez Potassium [Moles/Vol] 4.1 mmol/L Normal 3.5-5.1 [facility] Comment on above: Performed By: #### B MP #### [facility] [address] [address] [address] Jorge Dominguez Sodium [Moles/Vol] 138 mmol/L Normal 136-145 [facility] Comment on above: Performed By: #### B MP #### [facility] [address] [address] [address] Jorge Dominguez Urea nitrogen [Mass/Vol] 16.0 mg/dL Normal 7.0-18.0 [facility] Comment on above: Performed By: #### B MP #### [facility] [address] [address] [address] Jorge Dominguez Urea nitrogen/Creatinine [Mass ratio] 12.1 mg/mg Normal [facility] Comment on above: Performed By: #### B MP #### [facility] [address] [address] [address] Jorge Dominguez URINE MICROSCOPIC ONLYon BACTERIA TRACE Abnormal NONE SEEN [facility] Comment on above: Performed By: #### U MICRO, ERUR #### [facility] [address] [address] [address] Jorge Dominguez Bacteria identified Cx Nom (U) NOT INDICATED Normal [facility] Comment on above: Performed By: #### U MICRO, ERUR #### [facility] [address] [place] [address] Dr. Jorge Dominguez CAST NONE SEEN Normal NONE SEEN [facility] Comment on above: Performed By: #### U MICRO, ERUR #### [facility] [address] [place] [address] Dr. Jorge Dominguez Crystals LM Nom (Urine sed) NONE SEEN Normal NONE SEEN [facility] Comment on above: Performed By: #### U MICRO, ERUR #### [facility] [address] [place] [address] Dr. Jorge Dominguez Epithelial cells LM Ql (Urine sed) FEW Abnormal NONE SEEN /RARE [facility] Comment on above: Performed By: #### U MICRO, ERUR #### [facility] [address] [place] [address] Dr. Jorge Dominguez MUCOUS TRACE Abnormal NONE SEEN [facility] Comment on above: Performed By: #### U MICRO, ERUR #### [facility] [address] [place] [address] Dr. Jorge Dominguez RBC 5-10 Abnormal 0-2 [facility] Comment on above: Performed By: #### U MICRO, ERUR #### [facility] [address] [place] [address] Dr. Jorge Dominguez WBC 0-2 Abnormal NONE SEEN [facility] Comment on above: Performed By: #### U MICRO, ERUR #### [facility] [address] [place] [address] Dr. Jorge Dominguez PSA SCREENING LABCORPon 12-2 Prostate specific Ag [Mass/Vol] 2.4 ng/mL Normal 0.0-4.0 [facility] Comment on above: Result Comment: Nhi GUTIERREZ methodology. . According to the [place] [employer], Serum PSA should decrease and [...] malignant disease. Performed By: #### P SASCLC ####[facility] [address] [place] [address]DrAmanda Dominguez XR KUB 1 VIEWon 02-22-2021 XR [...] SYED SWARTZ Date: 2021-02-22 16:11 Normal [facility] AMYLASEon 02-17-2021 Amylase [Catalytic activity/Vol] 65 U/L Normal 31-110 [facility] Comment on above: Performed By: #### L WILLA MORALES ####[facility] [address] [place] [address]Dr. Jorge Dominguez CBC AUTO DIFFon 02-17-2021 BASO # 0.1 103/ul Normal 0.0-0.1 [facility] Comment on above: Performed By: #### C BC #### [facility] [address] [place] [address] Dr. Jorge Dominguez Basophils/100 WBC (Bld) 0.6 % Normal 0.2-2.0 [facility] Comment on above: Performed By: #### C BC #### [facility] [address] [place] [address] Dr. Jorge Dominguez EO # 0.3 103/ul Normal 0.0-0.7 [facility] Comment on above: Performed By: #### C BC #### [facility] [address] [address] [address] Jorge Dominguez Eosinophils/100 WBC (Bld) 3.9 % Normal 0.9-7.0 [facility] Comment on above: Performed By: #### C BC #### [facility] [address] [place] [address] Dr. Jorge Dominguez Erythrocyte distribution width (RBC) [Ratio] 13.1 % Normal 11.0-15.0 [facility] Comment on above: Performed By: #### C BC #### [facility] [address] [place] [address] Dr. Jorge Dominguez Hematocrit (Bld) [Volume fraction] 43.3 % Normal 42.0-54.0 [facility] Comment on above: Performed By: #### C BC #### [facility] [address] [place] [address] Dr. Jorge Dominguez Hemoglobin (Bld) [Mass/Vol] 14.7 g/dL Normal 14.0-18.0 [facility] Comment on above: Performed By: #### C BC #### [facility] [address] [place] [address] Dr. Jorge Dominguez IG # 0.03 10e3/ul Normal 0.00-0.03 [facility] Comment on above: Performed By: #### C BC #### [facility] [address] [place] [address] Dr. Jorge Dominguez IG % 0.4 % Normal 0.0-0.5 [facility] Comment on above: Performed By: #### C BC #### [facility] [address] [place] [address] Dr. Jorge Dominguez LYMPH # 1.2 103/ul Normal 1.2-3.8 [facility] Comment on above: Performed By: #### C BC #### [facility] [address] [place] [address] Dr. Jorge Dominguez Lymphocytes/100 WBC (Bld) 14.8 % Critically low 20.5-60.0 [facility] Comment on above: Performed By: #### C BC #### [facility] [address] [place] [address] Dr. Jorge Dominguez MANUAL DIFF REQ NO Normal [facility] Comment on above: Performed By: #### C BC #### [facility] [address] [place] [address] Dr. Jorge Dominguez MCH (RBC) [Entitic mass] 30.6 pg Normal 25.9-34.0 [facility] Comment on above: Performed By: #### C BC #### [facility] [address] [place] [address] Dr. Jorge Dominguez MCHC (RBC) [Mass/Vol] 33.9 g/dL Normal 29.9-35.2 [facility] Comment on above: Performed By: #### C BC #### [facility] [address] [place] [address] Dr. Jorge Dominguez MCV (RBC) [Entitic vol] 90.0 fL Normal 80.0-94.0 [facility] Comment on above: Performed By: #### C BC #### [facility] [address] [place] [address] Dr. Jorge Dominguez MONO # 0.5 103/ul Normal 0.3-0.8 [facility] Comment on above: Performed By: #### C BC #### [facility] [address] [place] [address] Dr. Jorge Dominguez Monocytes/100 WBC (Bld) 6.1 % Normal 1.7-12.0 [facility] Comment on above: Performed By: #### C BC #### [facility] [address] [place] [address] Dr. Jorge Dominguez NEUT # 6.2 103/ul Normal 1.4-6.5 [facility] Comment on above: Performed By: #### C BC #### [facility] [address] [place] [address] Dr. Jorge Dominguez Neutrophils/100 WBC (Bld) 74.2 % Normal 43.0-75.0 [facility] Comment on above: Performed By: #### C BC #### [facility] [address] [place] [address] Dr. Jorge Dominguez Platelet mean volume (Bld) [Entitic vol] 10.8 fL Normal 9.5-13.5 [facility] Comment on above: Performed By: #### C BC #### [facility] [address] [place] [address] Dr. Jorge Dominguez PLT 230 103/ul Normal 150-450 [facility] Comment on above: Performed By: #### C BC #### [facility] [address] [address] [address] Jorge Dominguez RBC 4.81 106/ul Normal 4.70-6.10 [facility] Comment on above: Performed By: #### C BC #### [facility] [address] [id number] Jorge Dominguez WBC 8.4 103/ul Normal 4.0-11.0 [facility] Comment on above: Performed By: #### C BC #### [facility] [address] [address] [address] ABD/PELV W CONon [...] SYED SWARTZ Date: 2021-02-17 07:38 Normal [facility] ER URINE PROFILEon 1 Bilirubin Ql (U) Negative Normal NEGATIVE [facility] Comment on above: Performed By: #### E RUR #### [facility] [address] [place] [address] Dr. Jorge Dominguez Clarity (U) CLEAR Normal CLEAR [facility] Comment on above: Performed By: #### E RUR #### [facility] [address] [place] [address] Dr. Jorge Dominguez Color (U) LT. YELLOW Normal YELLOW [facility] Comment on above: Performed By: #### E RUR #### [facility] [address] [place] [address] Dr. Jorge MURRAY A micrscopic examination will be performed if indicated. Normal [facility] Comment on above: Performed By: #### E RUR #### [facility] [address] [place] [address] Dr. Jorge Dominguez Glucose Ql (U) Negative Normal NEGATIVE [facility] Comment on above: Performed By: #### E RUR #### [facility] [address] [place] [address] Dr. Jorge Dominguez Hemoglobin Ql (U) Negative Normal NEGATIVE [facility] Comment on above: Performed By: #### E RUR #### [facility] [address] [place] [address] Dr. Jorge Dominguez Ketones Ql (U) Negative Normal NEGATIVE [facility] Comment on above: Performed By: #### E RUR #### [facility] [address] [place] [address] Dr. Jorge Dominguez LEUKOCYTES Negative Normal NEGATIVE [facility] Comment on above: Performed By: #### E RUR #### [facility] [address] [place] [address] Dr. Jorge Dominguez Nitrite Ql (U) Negative Normal NEGATIVE [facility] Comment on above: Performed By: #### E RUR #### [facility] [address] [address] [address] Jorge Dominguez pH (U) 7.0 [pH] Normal 5-9 [facility] Comment on above: Performed By: #### E RUR #### [facility] [address] [place] [address] Dr. Jorge Dominguez SPEC GRAVITY 1.020 Normal 1.005-<=1.02 5 [facility] Comment on above: Performed By: #### E RUR #### [facility] [address] [place] [address] Dr. Jorge Dominguez UA PROTEIN Negative Normal NEGATIVE/ TRACE [facility] Comment on above: Performed By: #### E RUR #### [facility] [address] [place] [address] Dr. Jorge Dominguez UR MICRO IND NOT INDICATED Normal [facility] Comment on above: Performed By: #### E RUR #### [facility] [address] [place] [address] Dr. Jorge Dominguez Urobilinogen Qn (U) 0.2 {Julee'U}/dL Normal 0.2 - 1. 0 [facility] Comment on above: Performed By: #### E RUR #### [facility] [address] [place] [address] Dr. Jorge Dominguez LIPASEon 02-17-2021 Lipase [Catalytic activity/Vol] 102.0 U/L Normal 23.0-300.0 [facility] Comment on above: Performed By: #### L IPAWILLA ####[facility] [address] [place] [address]Dr. Jorge Dominguez PROF 14(COMP METB)on 021 Albumin [Mass/Vol] 4.3 g/dL Normal 3.5-5.0 [facility] Comment on above: Performed By: #### C MP #### [facility] [address] [place] [address] Dr. Jorge Dominguez Albumin/Globulin [Mass ratio] 1.2 {ratio} Normal [facility] Comment on above: Performed By: #### C MP #### [facility] [address] [address] [address] Jorge Dominguez ALP [Catalytic activity/Vol] 54 U/L Normal 38-126 [facility] Comment on above: Performed By: #### C MP #### [facility] [address] [address] [address] Jorge Dominguez ALT [Catalytic activity/Vol] 93 U/L Critically high 21-72 [facility] Comment on above: Performed By: #### C MP #### [facility] [address] [address] [address] Jorge Dominguez Anion gap [Moles/Vol] 14.7 mmol/L Normal [facility] Comment on above: Performed By: #### C MP #### [facility] [address] [place] [address] Dr. Jorge Dominguez AST [Catalytic activity/Vol] 36 U/L Normal 17-59 [facility] Comment on above: Performed By: #### C MP #### [facility] [address] [place] [id number] Dr. Jorge Dominguez Bilirubin [Mass/Vol] 0.6 mg/dL Normal 0.2-1.3 [facility] Comment on above: Performed By: #### C MP #### [facility] [address] [place] [address] Dr. Jorge Dominguez Calcium [Mass/Vol] 9.4 mg/dL Normal 8.4-10.2 [facility] Comment on above: Performed By: #### C MP #### [facility] [address] [address] [address] Jorge Dominguez Chloride [Moles/Vol] 103 mmol/L Normal 98-107 [facility] Comment on above: Performed By: #### C MP #### [facility] [address] [address] [address] Jorge Dominguez CO2 [Moles/Vol] 26.2 mmol/L Normal 22.0-30.0 [facility] Comment on above: Performed By: #### C MP #### [facility] [address] [address] [address] Jorge Dominguez Creatinine [Mass/Vol] 1.24 mg/dL Normal 0.66-1.25 [facility] Comment on above: Performed By: #### C MP #### [facility] [address] [address] [address] Jorge Dominguez EGFR-AF LEBANESE >60 Normal >=60 [facility] Comment on above: Performed By: #### C MP #### [facility] [address] [address] [address] Jorge Dominguez EGFR-NON AF LEBANESE >60 Normal >=60 [facility] Comment on above: Performed By: #### C MP #### [facility] [address] [place] [address] Dr. Jorge Dominguez Globulin (S) [Mass/Vol] 3.5 g/dL Normal [facility] Comment on above: Performed By: #### C MP #### [facility] [address] [place] [address] Dr. Jorge Dominguez Glucose [Mass/Vol] 160 mg/dL Critically high 74-106 [facility] Comment on above: Performed By: #### C MP #### [facility] [address] [place] [address] Dr. Jorge Dominguez Potassium [Moles/Vol] 3.9 mmol/L Normal 3.4-5.0 [facility] Comment on above: Performed By: #### C MP #### [facility] [address] [place] [address] Dr. Jorge Dominguez Protein [Mass/Vol] 7.8 g/dL Normal 6.1-8.2 [facility] Comment on above: Performed By: #### C MP #### [facility] [address] [place] [address] Dr. Jorge Dominguez Sodium [Moles/Vol] 140 mmol/L Normal 137-145 [facility] Comment on above: Performed By: #### C MP #### [facility] [address] [place] [address] Dr. Jorge Dominguez Urea nitrogen [Mass/Vol] 13.0 mg/dL Normal 9.0-20.0 [facility] Comment on above: Performed By: #### C MP #### [facility] [address] [place] [address] [address] [address] Jorge Dominguez Urea nitrogen/Creatinine [Mass ratio] 10.5 mg/mg Normal [facility] Comment on above: Performed By: #### C MP #### [facility] [address] [place], [place] [address] Dr. Jorge Dominguez T-Spoton 01-18-2019 T-Spot. TB Test Normal [facility] Comment on above: Result Comment: [facility] [employer] [address] [place] [address] (NOTE) T-SPOT.TB Test Results --------- T-SPOT TB [...] R UBI, JOSEY, RADHA, VZI, TSPOT #### [address] [place] [address] Pulverizer Tender: Santy Armstrong MD Measles (Rubeola) Imon 01-16 Measles (Rubeola) Im 5.30 Normal >1.09 [facility] Comment on above: Result Comment: Interpretation: IMMUNE Reference Range: <0.91 Not Immune 0.91-1.09 Equivocal >1.09 Immune Performed By: #### R UBI, JOSEY, RADHA, VZI, TSPOT #### [facility] [address] [place] [address] Pulverizer Tender: Santy Armstrong MD Mumps,Immun,Abon 01-16-2019 Mumps,Immun,Ab 0.83 Low >1.09 [facility] Comment on above: Result Comment: Interpretation: Not Immune Reference Range: <0.91 Not Immune 0.91-1.09 Equivocal >1.09 Immune Performed By: #### R UBI, JOSEY, RADHA, VZI, TSPOT #### [address] [address] Pulverizer Tender: Santy Armstrong MD VZ Immunityon 01-16-2019 VZ Immunity 1.15 Normal >1.09 [facility] Comment on above: Result Comment: Interpretation: IMMUNE Reference Range: <0.91 Not Immune 0.91-1.09 Equivocal >1.09 Immune Performed By: #### R UBI, JOSEY, RADHA, VZI, TSPOT #### [address] [address] Pulverizer Tender: Santy Armstrong MD Rubella Ab, IgGon 01-14-2019 Rubella Ab, IgG 43.3 IU/mL Normal [facility] Comment on above: Result Comment: REFERENCE RANGE: <5.0 NON-REACTIVE (non-immune) 5.0 TO 9.9 EQUIVOCAL >=10.0 REACTIVE (immune) Performed By: #### R UBI, JOSEY, RADHA, VZI, TSPOT #### [facility] [employer] [address] [place] [address] Pulverizer Tender: Santy Armstrong MD Rubella antibody, IgGon 01-04 Rubella virus IgG Ql (S) 43.3 IU/mL [place], [place] Comment on above: REFERENCE RANGE: <5.0 NON-REACTIVE (non-immune) 5.0 TO 9.9 EQUIVOCAL >=10.0 REACTIVE (immune) Vital Signs Date Time Vital Sign Value Performing Clinician Donavan cole 06-21-2023 13:17-0400 Blood Pressure Location Enrique PATELL [facility] [place] 06-21-2023 13:17-0400 Diastolic blood pressure 84 mm[Hg] Enrique NILL [facility] [place] 06-21-2023 13:17-0400 Heart rate 76 /min Enrique NILL [facility] [place] 06-21-2023 13:17-0400 Respiratory rate 16 /min Enrique NILL [facility] [place] 06-21-2023 13:17-0400 Systolic blood pressure 120 mm[Hg] Enrique NILL [facility] [place] Encounters Encounter Date Encounter Type Care Provider Facility Start: 06-21-2023 End: 06-21-2023 ambulatory Enrique SÁNCHEZ Facility:[facility] Start: 06-21-2023 End: 06-21-2023 Patient encounter procedure Enrique Goodson GONZALO [facility] [place] Start: 06-01-2023 Office outpatient ne w 30 minutes Alyse Sanford Other [facility] Office Start: 05-18-2023 ambulatory Enrique SÁNCHEZ Facility:[facility] Start: 10-20-2021 End: 10-20-2021 Patient encounter procedure CLEO HEALY [facility] [place] Start: 07-08-2021 End: 07-08-2021 ambulatory CASSANDRA SAAVEDRA Facility:[facility] Start: 02-22-2021 End: 02-23-[address] KERA MARTINEZ Facility:[facility] Start: 02-17-2021 End: 02-17-[address] ARAVIND EDMONDS Facility:[facility] Start: 01-14-2019 End: 01-15-2019 Patient encounter procedure ENRIQUE RIETHMILLER [facility] Start: 01-14-2019 End: 01-14-2019 Subsequent hospital [...] 11-04-2018 Influenza vaccination Flu vaccine (# 1) [place], [place] Start: 2010 Lipid screen Lipid screen [place], [place] Start: 1989 DTaP/Tdap/Td vaccine (1 - Tdap) DTaP/Tdap/Td vaccine (1 - Tdap) [place], [place] Start: 1985 HIV screen HIV screen [place], [place] End: 01-14-2019 Mumps Antibody, IgG Mumps Antibody, IgG Lab Routine Once for 1 Occurrences starting 01/14/2019 until 01/14/2019 [place] Comment on above: Once for 1 Occurrenc es starting 01/14/2019 until 01/14/2019 Mumps Antibody, IgG Mumps Antibo dy, IgG Lab Routine 01/14/2019 3:03 PM EST [place] End: 01-14-2019 Rubeola Antibody, IgG Rubeola Antibody, IgG Lab Routine Once for 1 Occurrences starting 01/14/2019 until 01/14/2019 [place] Comment on above: Once for 1 Occurrenc es starting 01/14/2019 until 01/14/2019 Rubeola Antibody, IgG Rubeola An tibody, IgG Lab Routine 01/14/2019 3:03 PM [place] End: 01-14-2019 Tb antigen response gamma interferon t-cell susp T-Spot TB Test Lab Routine Once for 1 Occurrences starting 01/14/2019 until 01/14/2019 [place] Comment on above: Once for 1 Occurrenc es starting 01/14/2019 until 01/14/2019 Tb antigen response gamma interferon t-cell susp T-Spot TB Test Lab Routine 01/14/2019 3:03 PM [place] End: 01-14-2019 Varicella Zoster Antibody, IgG Varicella Zoster Antibody, IgG Lab Routine Once for 1 Occurrences starting 01/14/2019 until 01/14/2019 [place] Comment on above: Once for 1 Occurrenc es starting 01/14/2019 until 01/14/2019 Varicella Zoster Antibody, IgG Varicella Zoster Antibody, IgG Lab Routine 01/14/2019 3:03 PM [place] Immunizations Immunization Date Immunization Notes Care Provider [facility] 12-28-2022 influenza virus vaccine, unspecified formulation Enrique SÁNCHEZ [facility] 03-03-2021 SARS-CoV-2 (COVID-19 ) mRNA-1273 vaccine Enrique GONZALO [facility] 02-03-2021 SARS-CoV-2 (COVID-19 ) mRNA-1273 vaccine Enrique SÁNCHEZ [facility] Comment on above: Result Comment: 2023: [id number] Payers Date Payer Category Payer Unknown [id number] [id number] [id number] 1970 Unknown [id number] [id number] [id number] 1970 Unknown [id number] [id number] [id number] 1970 Unknown [id number] 1959 Unknown [id number] 1959 Unknown [id number] Social History Date Type Detail Facility Start: 05-21-2014 Tobacco smoking status NHIS Never smoker [place] Start: 05-21-2014 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 Clinical Note 06-21-2023 Note Date & Type [...] (COVID-19) mRNA-1273 vaccine 02/03/2021 Recorded 2023-05-22: [id number] [facility] Comment on above: Result Comment: Elec tronically Signed By: GONZALO PERSON, Enrique Mcmahon\Date and Time Signed: 06/21/23 14:25 EDT Evaluation + Plan note Note Date & Type Note Facility Evaluation + Plan note No data available for this section [facility] Hospital Discharge instructions Note Date & Type Note Facility Hospital Discharge instructions No data available for this section [facility] Progress note Note Date & Type Note Facility Progress note No data available for this section [facility] Advance Directives No Advanced Directives Records FoundDocuments on File Type Date 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 Advance Directives and Living Will Power of Compliance 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 Summary Purpose Family History No Family History Records FoundNo Family History Records Found No data available for this section No Family History Records Found Additional Source Comments (unrecognized sect ion and content) No Status Records FoundNo Status Records FoundNo Status Records Found INFORMATION SOURCE (unrecogn ized section and content) DATE CREATED AUTHOR 01/18/2019 [facility] DATE CREATED AUTHOR AUTHOR'S ORGANIZ ATION 07/12/2021 [facility] DATE CREATED AUTHOR AUTHOR'S BRODERICK SELBY 08/11/2023 Kamran Overton [facility] Care Team (unrecognized sect ion and content) Personnel Name: YOLANDA OLGUIN MD Address: [address] [place] [address] Personnel Name: Adelfo Garibay MD Address: Address: [facility] FOR RECORDS PERTAINING TO PATIENTS WHO [...] BE BASED ON THE PRIMARY CLINICAL RECORDS. [facility] [employer] [facility]. provides no warranty or guarantee of the accuracy or completeness of information in this document.
== END 2024-05-07 07:29 | disposition home or self-care (01) ==
LOC: CARD 07:28
PROVIDERS: PCP Family Medicine; Visit Provider Family Medicine
DX: R01.1 Cardiac murmur, unspecified (principal)
CPT/HCPCS: 93306

== ENCOUNTER 2024-05-29 08:19 | Outpatient (OUT) | payer BC, SELFPAY ==
--- OUTSIDE RECORDS SUMMARY | 2024-05-29 08:30 | XMS_ITS | CCD ---
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 Reminderson 08-10-2023 Reminders - From: Terri Pritchett LPN To: GSN - Clinical; Sent: 08/10/2023 12:01:47 EDT Show up: 07/08/2033 07:00:00 EDT Subject: colonoscopy recall Due Date/Time: 08/08/2033 07:00:00 EDT Reminder/Recall Patient due for screening colonoscopy 08/08/2033. [facility] Insurance Correspondenceon 0 07-26-2023 Insurance Correspondence [id number]#1.[address] [facility] Consent for Procedure/Surger yon 06-22-2023 Consent for Procedure/Surgery [id number]#1.00T IFF [facility] Ambulatory Visit Summaryon 0 06-21-2023 Ambulatory Visit [...] for choosing us for your care. Normal [facility] Facesheeton 06-21-2023 Facesheet [id number]#1.00 TIFF Normal [facility] No Panel Informationon 05-31 Tobacco smoking status Non-Smoker Invalid Interpretation Code [facility] [facility] Referralon 024 Physician Referral [id number]#1.00T IFF Normal [facility] CBC AUTO DIFFon 07-08-2021 BASO # 0.1 103/ul Normal 0.0-0.1 [facility] Comment on above: Performed By: #### C BC ####[facility] [address] [place], [place] [address]Er. Jorge Dominguez Basophils/100 WBC (Bld) 0.5 % Normal 0.2-2.0 [facility] Comment on above: Performed By: #### C BC ####[facility] [address] [place], [place] [address]PfAmanda Dominguez EO # 0.1 103/ul Normal 0.0-0.7 [facility] Comment on above: Performed By: #### C BC ####[facility] [address] [place] [address]Dr. Jorge Dominguez Eosinophils/100 WBC (Bld) 0.9 % Normal 0.9-7.0 [facility] Comment on above: Performed By: #### C BC ####[facility] [address] [place] [address]Dr. Jorge Dominguez Erythrocyte distribution width (RBC) [Ratio] 13.0 % Normal 11.0-15.0 [facility] Comment on above: Performed By: #### C BC ####[facility] [address] [place] [address]Dr. Jorge Dominguez Hematocrit (Bld) [Volume fraction] 43.4 % Normal 42.0-54.0 [facility] Comment on above: Performed By: #### C BC ####[facility] [address] [place], [place] [address]Dr. Jorge Dominguez Hemoglobin (Bld) [Mass/Vol] 14.9 g/dL Normal 14.0-18.0 [facility] Comment on above: Performed By: #### C BC ####[facility] [address] [place] [address]Dr. Jorge Dominguez IG # 0.04 10e3/ul Critically high 0.00-0.03 [facility] Comment on above: Performed By: #### C BC ####[facility] [address] [place] [address]Dr. Jorge Dominguez IG % 0.4 % Normal 0.0-0.5 [facility] Comment on above: Performed By: #### C BC ####[facility] [address] [place] [address]Dr. Jorge Dominguez LYMPH # 1.0 103/ul Critically low 1.2-3.8 [facility] Comment on above: Performed By: #### C BC ####[facility] [address] [place], [place] [address]Dr. Jorge Dominguez Lymphocytes/100 WBC (Bld) 9.1 % Critically low 20.5-60.0 [facility] Comment on above: Performed By: #### C BC ####[facility] [address] [place] [address]Dr. Jorge Dominguez MANUAL DIFF REQ NO Normal [facility] Comment on above: Performed By: #### C BC ####[facility] [address] [place] [address]Dr. Jorge Dominguez MCH (RBC) [Entitic mass] 30.8 pg Normal 25.9-34.0 [facility] Comment on above: Performed By: #### C BC ####[facility] [address] [place], [place] [address]Dr. Jorge Dominguez MCHC (RBC) [Mass/Vol] 34.3 g/dL Normal 29.9-35.2 [facility] Comment on above: Performed By: #### C BC ####[facility] [address] [place], [place] [address]Dr. Jorge Dominguez MCV (RBC) [Entitic vol] 89.7 fL Normal 80.0-94.0 [facility] Comment on above: Performed By: #### C BC ####[facility] [address] [place], [place] [address]Dr. Jorge Dominguez MONO # 0.4 103/ul Normal 0.3-0.8 [facility] Comment on above: Performed By: #### C BC ####[facility] [address] [place] [address]Dr. Jorge Dominguez Monocytes/100 WBC (Bld) 4.1 % Normal 1.7-12.0 [facility] Comment on above: Performed By: #### C BC ####[facility] [address] [place], [place] [address]Dr. Jorge Dominguez NEUT # 9.0 103/ul Critically high 1.4-6.5 [facility] Comment on above: Performed By: #### C BC ####[facility] [address] [place], [place] [address]Dr. Jorge Dominguez Neutrophils/100 WBC (Bld) 85.0 % Critically high 43.0-75.0 [facility] Comment on above: Performed By: #### C BC ####[facility] [address] [place], [place] [address]Qa. Jorge Dominguez Platelet mean volume (Bld) [Entitic vol] 10.8 fL Normal 9.5-13.5 [facility] Comment on above: Performed By: #### C BC ####[facility] [address] [place], [place] [address]Rf. Jorge Dominguez PLT 210 103/ul Normal 150-450 [facility] Comment on above: Performed By: #### C BC ####[facility] [address] [place], [place] [address]Sj. Jorge Dominguez RBC 4.84 106/ul Normal 4.70-6.10 [facility] Comment on above: Performed By: #### C BC ####[facility] [address] [place], [place] [address]Kn. Jorge Dominguez WBC 10.6 103/ul Normal 4.0-11.0 [facility] Comment on above: Performed By: #### C BC ####[facility] [address] [place], [place] [address]Ef. Jorge Dom[address]uez CT ABD/PELVIS WO CONon 07-08 [...] CATHLEEN MILLER Date: 2021-07-08 05:16 Normal [facility] ER URINE PROFILEon 2 Bilirubin Ql (U) Negative Normal NEGATIVE [facility] Comment on above: Performed By: #### U MICRO, ERUR #### [facility] [address] [place] [address] Dr. Jorge Dominguez Clarity (U) CLEAR Normal CLEAR [facility] Comment on above: Performed By: #### U MICRO, ERUR #### [facility] [address] [place] [address] Dr. Jorge Dominguez Color (U) LT. YELLOW Normal YELLOW [facility] Comment on above: Performed By: #### U MICRO, ERUR #### [facility] [address] [place] [address] [address] Jorge Dominguez ERUAHD A micrscopic examination will be performed if indicated. Normal [facility] Comment on above: Performed By: #### U MICRO, ERUR #### [facility] [address] [place] [address] Dr. Jorge Dominguez Glucose Ql (U) Negative Normal NEGATIVE [facility] Comment on above: Performed By: #### U MICRO, ERUR #### [facility] [address] [place] [address] [address] Jorge Dominguez Hemoglobin Ql (U) LARGE Abnormal NEGATIVE [facility] Comment on above: Performed By: #### U MICRO, ERUR #### [facility] [address] [place] [address] Dr. Jorge Dominguez Ketones Ql (U) TRACE Abnormal NEGATIVE [facility] Comment on above: Performed By: #### U MICRO, ERUR #### [facility] [address] [place] [address] Dr. Jorge Dominguez LEUKOCYTES Negative Normal NEGATIVE [facility] Comment on above: Performed By: #### U MICRO, ERUR #### [facility] [address] [place] [address] Dr. Jorge Dominguez Nitrite Ql (U) Negative Normal NEGATIVE [facility] Comment on above: Performed By: #### U MICRO, ERUR #### [facility] [address] [place] [address] Dr. Jorge Dominguez pH (U) 5.5 [pH] Normal 5-9 [facility] Comment on above: Performed By: #### U MICRO, ERUR #### [facility] [address] [place] [address] Dr. Jorge Dominguez SPEC GRAVITY >=1.030 Abnormal 1.005-<=1.[address] [place] [address] Comment on above: Performed By: #### U MICRO, ERUR #### [facility] [address] [place] [address] Dr. Jorge Dominguez UA PROTEIN Negative Normal NEGATIVE/ TRACE [facility] Comment on above: Performed By: #### U MICRO, ERUR #### [facility] [address] [place] [address] Dr. Jorge Dominguez UR MICRO IND INDICATED Normal [facility] Comment on above: Performed By: #### U MICRO, ERUR #### [facility] [address] [place] [address] Dr. Jorge Dominguez Urobilinogen Qn (U) 0.2 {Julee'U}/dL Normal 0.2 - 1. 0 [facility] Comment on above: Performed By: #### U MICRO, ERUR #### [facility] [address] [place] [address] [address] Jorge Dominguez LACTATE/LACTIC ACIDon 2021 Lactate [Moles/Vol] 1.7 mmol/L Normal 0.4-2.0 [facility] Comment on above: Performed By: #### L ACT #### [facility] [address] [place] [address] [address] Jorge Dominguez Lactate [Moles/Vol] 2.1 mmol/L Critically high 0.4-2.0 [facility] Comment on above: Performed By: #### L ACT #### [facility] [address] [place] [address] [address] Jorge Dominguez PROF CHEM 8 (BAS METB)on Anion gap [Moles/Vol] 13.8 mmol/L Normal [facility] Comment on above: Performed By: #### B MP #### [facility] [address] [place] [address] Dr. Jorge Dominguez Calcium [Mass/Vol] 9.4 mg/dL Normal 8.5-10.1 [facility] Comment on above: Performed By: #### B MP #### [facility] [address] [place] [address] Dr. Jorge Dominguez Chloride [Moles/Vol] 104 mmol/L Normal 98-107 [facility] Comment on above: Performed By: #### B MP #### [facility] [address] [place] [address] [address] Jorge Dominguez CO2 [Moles/Vol] 24.3 mmol/L Normal 21.0-32.0 [facility] Comment on above: Performed By: #### B MP #### [facility] [address] [place] [address] Dr. Jorge Dominguez Creatinine [Mass/Vol] 1.32 mg/dL Critically high 0.70-1.30 [facility] Comment on above: Performed By: #### B MP #### [facility] [address] [place] [address] Dr. Jorge Dominguez EGFR-AF FIJIAN >60 Normal >=60 [facility] Comment on above: Performed By: #### B MP #### [facility] [address] [place] [address] [address] Jorge Dominguez EGFR-NON AF FIJIAN 57 mL/min/1.73m2 Critically low >=60 [facility] Comment on above: Performed By: #### B MP #### [facility] [address] [place] [address] [address] Jorge Dominguez Glucose [Mass/Vol] 166 mg/dL Critically high 74-106 [facility] Comment on above: Performed By: #### B MP #### [facility] [address] [place] [address] [address] Jorge Dominguez Potassium [Moles/Vol] 4.1 mmol/L Normal 3.5-5.1 [facility] Comment on above: Performed By: #### B MP #### [facility] [address] [place] [address] [address] Jorge Dominguez Sodium [Moles/Vol] 138 mmol/L Normal 136-145 [facility] Comment on above: Performed By: #### B MP #### [facility] [address] [place] [address] [address] Jorge Dominguez Urea nitrogen [Mass/Vol] 16.0 mg/dL Normal 7.0-18.0 [facility] Comment on above: Performed By: #### B MP #### [facility] [address] [place] [address] [address] Jorge Dominguez Urea nitrogen/Creatinine [Mass ratio] 12.1 mg/mg Normal [facility] Comment on above: Performed By: #### B MP #### [facility] [address] [place] [address] [address] Jorge Dominguez URINE MICROSCOPIC ONLYon BACTERIA TRACE Abnormal NONE SEEN [facility] Comment on above: Performed By: #### U MICRO, ERUR #### [facility] [address] [place] [address] [address] Jorge Dominguez Bacteria identified Cx Nom (U) NOT INDICATED Normal [facility] Comment on above: Performed By: #### U MICRO, ERUR #### [facility] [address] [place] [address] Dr. Jorge Dominguez CAST NONE SEEN Normal NONE SEEN [facility] Comment on above: Performed By: #### U MICRO, ERUR #### [facility] [address] [place] [address] Dr. Jorge Dominguez Crystals LM Nom (Urine sed) NONE SEEN Normal NONE SEEN [facility] Comment on above: Performed By: #### U MICRO, ERUR #### [facility] [address] [place] [address] Dr. Jorge Dominguez Epithelial cells LM Ql (Urine sed) FEW Abnormal NONE SEEN /RARE [facility] Comment on above: Performed By: #### U MICRO, ERUR #### [facility] [address] [place] [address] Dr. Jorge Dominguez MUCOUS TRACE Abnormal NONE SEEN [facility] Comment on above: Performed By: #### U MICRO, ERUR #### [facility] [address] [place] [address] Dr. Jorge Dominguez RBC 5-10 Abnormal 0-2 [facility] Comment on above: Performed By: #### U MICRO, ERUR #### [facility] [address] [place] [address] Dr. Jorge Dominguez WBC 0-2 Abnormal NONE SEEN [facility] Comment on above: Performed By: #### U MICRO, ERUR #### [facility] [address] [place] [address] Dr. Jorge Dominguez PSA SCREENING LABCORPon 12-2 Prostate specific Ag [Mass/Vol] 2.4 ng/mL Normal 0.0-4.0 [facility] Comment on above: Result Comment: Nhi GUTIERREZ methodology. . According to the [place] [employer], Serum PSA should decrease and [...] malignant disease. Performed By: #### P SASCLC ####[facility] [address] [place] [address]DrAmanda Dominguez XR KUB 1 VIEWon 02-22-2021 XR [...] SYED SWARTZ Date: 2021-02-22 16:11 Normal [facility] AMYLASEon 02-17-2021 Amylase [Catalytic activity/Vol] 65 U/L Normal 31-110 [facility] Comment on above: Performed By: #### L WILLA MORALES ####[facility] [address] [place] [address]Dr. Jorge Dominguez CBC AUTO DIFFon 02-17-2021 BASO # 0.1 103/ul Normal 0.0-0.1 [facility] Comment on above: Performed By: #### C BC #### [facility] [address] [place] [address] Dr. Jorge Dominguez Basophils/100 WBC (Bld) 0.6 % Normal 0.2-2.0 [facility] Comment on above: Performed By: #### C BC #### [facility] [address] [place] [address] Dr. Jorge Dominguez EO # 0.3 103/ul Normal 0.0-0.7 [facility] Comment on above: Performed By: #### C BC #### [facility] [address] [place] [address] [address] Jorge Dominguez Eosinophils/100 WBC (Bld) 3.9 % Normal 0.9-7.0 [facility] Comment on above: Performed By: #### C BC #### [facility] [address] [place] [address] Dr. Jorge Dominguez Erythrocyte distribution width (RBC) [Ratio] 13.1 % Normal 11.0-15.0 [facility] Comment on above: Performed By: #### C BC #### [facility] [address] [place] [address] Dr. Jorge Dominguez Hematocrit (Bld) [Volume fraction] 43.3 % Normal 42.0-54.0 [facility] Comment on above: Performed By: #### C BC #### [facility] [address] [place] [address] Dr. Jorge Dominguez Hemoglobin (Bld) [Mass/Vol] 14.7 g/dL Normal 14.0-18.0 [facility] Comment on above: Performed By: #### C BC #### [facility] [address] [place] [address] Dr. Jorge Dominguez IG # 0.03 10e3/ul Normal 0.00-0.03 [facility] Comment on above: Performed By: #### C BC #### [facility] [address] [place] [address] Dr. Jorge Dominguez IG % 0.4 % Normal 0.0-0.5 [facility] Comment on above: Performed By: #### C BC #### [facility] [address] [place] [address] Dr. Jorge Dominguez LYMPH # 1.2 103/ul Normal 1.2-3.8 [facility] Comment on above: Performed By: #### C BC #### [facility] [address] [place] [address] Dr. Jorge Dominguez Lymphocytes/100 WBC (Bld) 14.8 % Critically low 20.5-60.0 [facility] Comment on above: Performed By: #### C BC #### [facility] [address] [place] [address] Dr. Jorge Dominguez MANUAL DIFF REQ NO Normal [facility] Comment on above: Performed By: #### C BC #### [facility] [address] [place] [address] Dr. Jorge Dominguez MCH (RBC) [Entitic mass] 30.6 pg Normal 25.9-34.0 [facility] Comment on above: Performed By: #### C BC #### [facility] [address] [place] [address] Dr. Jorge Dominguez MCHC (RBC) [Mass/Vol] 33.9 g/dL Normal 29.9-35.2 [facility] Comment on above: Performed By: #### C BC #### [facility] [address] [place] [address] Dr. Jorge Dominguez MCV (RBC) [Entitic vol] 90.0 fL Normal 80.0-94.0 [facility] Comment on above: Performed By: #### C BC #### [facility] [address] [place] [address] Dr. Jorge Dominguez MONO # 0.5 103/ul Normal 0.3-0.8 [facility] Comment on above: Performed By: #### C BC #### [facility] [address] [place] [address] Dr. Jorge Dominguez Monocytes/100 WBC (Bld) 6.1 % Normal 1.7-12.0 [facility] Comment on above: Performed By: #### C BC #### [facility] [address] [place] [address] Dr. Jorge Dominguez NEUT # 6.2 103/ul Normal 1.4-6.5 [facility] Comment on above: Performed By: #### C BC #### [facility] [address] [place] [address] Dr. Jorge Dominguez Neutrophils/100 WBC (Bld) 74.2 % Normal 43.0-75.0 [facility] Comment on above: Performed By: #### C BC #### [facility] [address] [place] [address] Dr. Jorge Dominguez Platelet mean volume (Bld) [Entitic vol] 10.8 fL Normal 9.5-13.5 [facility] Comment on above: Performed By: #### C BC #### [facility] [address] [place] [address] Dr. Jorge Dominguez PLT 230 103/ul Normal 150-450 [facility] Comment on above: Performed By: #### C BC #### [facility] [address] [place] [address] [address] Jorge Dominguez RBC 4.81 106/ul Normal 4.70-6.10 [facility] Comment on above: Performed By: #### C BC #### [facility] [address] [id number] Jorge Dominguez WBC 8.4 103/ul Normal 4.0-11.0 [facility] Comment on above: Performed By: #### C BC #### [facility] [address] [place] [address] [address] ABD/PELV W CONon [...] SYED SWARTZ Date: 2021-02-17 07:38 Normal [facility] ER URINE PROFILEon 1 Bilirubin Ql (U) Negative Normal NEGATIVE [facility] Comment on above: Performed By: #### E RUR #### [facility] [address] [place] [address] Dr. Jorge Dominguez Clarity (U) CLEAR Normal CLEAR [facility] Comment on above: Performed By: #### E RUR #### [facility] [address] [place] [address] Dr. Jorge Dominguez Color (U) LT. YELLOW Normal YELLOW [facility] Comment on above: Performed By: #### E RUR #### [facility] [address] [place] [address] Dr. Jorge MURRAY A micrscopic examination will be performed if indicated. Normal [facility] Comment on above: Performed By: #### E RUR #### [facility] [address] [place] [address] Dr. Jorge Dominguez Glucose Ql (U) Negative Normal NEGATIVE [facility] Comment on above: Performed By: #### E RUR #### [facility] [address] [place] [address] Dr. Jorge Dominguez Hemoglobin Ql (U) Negative Normal NEGATIVE [facility] Comment on above: Performed By: #### E RUR #### [facility] [address] [place] [address] Dr. Jorge Dominguez Ketones Ql (U) Negative Normal NEGATIVE [facility] Comment on above: Performed By: #### E RUR #### [facility] [address] [place] [address] Dr. Jorge Dominguez LEUKOCYTES Negative Normal NEGATIVE [facility] Comment on above: Performed By: #### E RUR #### [facility] [address] [place] [address] Dr. Jorge Dominguez Nitrite Ql (U) Negative Normal NEGATIVE [facility] Comment on above: Performed By: #### E RUR #### [facility] [address] [address] [address] Jorge Dominguez pH (U) 7.0 [pH] Normal 5-9 [facility] Comment on above: Performed By: #### E RUR #### [facility] [address] [place] [address] Dr. Jorge Dominguez SPEC GRAVITY 1.020 Normal 1.005-<=1.02 5 [facility] Comment on above: Performed By: #### E RUR #### [facility] [address] [place] [address] Dr. Jorge Dominguez UA PROTEIN Negative Normal NEGATIVE/ TRACE [facility] Comment on above: Performed By: #### E RUR #### [facility] [address] [place] [address] Dr. Jorge Dominguez UR MICRO IND NOT INDICATED Normal [facility] Comment on above: Performed By: #### E RUR #### [facility] [address] [place] [address] Dr. Jorge Dominguez Urobilinogen Qn (U) 0.2 {Julee'U}/dL Normal 0.2 - 1. 0 [facility] Comment on above: Performed By: #### E RUR #### [facility] [address] [place] [address] Dr. Jorge Dominguez LIPASEon 02-17-2021 Lipase [Catalytic activity/Vol] 102.0 U/L Normal 23.0-300.0 [facility] Comment on above: Performed By: #### L IPAWILLA ####[facility] [address] [place] [address]Dr. Jorge Dominguez PROF 14(COMP METB)on 021 Albumin [Mass/Vol] 4.3 g/dL Normal 3.5-5.0 [facility] Comment on above: Performed By: #### C MP #### [facility] [address] [place] [address] Dr. Jorge Dominguez Albumin/Globulin [Mass ratio] 1.2 {ratio} Normal [facility] Comment on above: Performed By: #### C MP #### [facility] [address] [address] [address] Jorge Dominguez ALP [Catalytic activity/Vol] 54 U/L Normal 38-126 [facility] Comment on above: Performed By: #### C MP #### [facility] [address] [address] [address] Jorge Dominguez ALT [Catalytic activity/Vol] 93 U/L Critically high 21-72 [facility] Comment on above: Performed By: #### C MP #### [facility] [address] [place] [address] [address] Jorge Dominguez Anion gap [Moles/Vol] 14.7 mmol/L Normal [facility] Comment on above: Performed By: #### C MP #### [facility] [address] [place] [address] Dr. Jorge Dominguez AST [Catalytic activity/Vol] 36 U/L Normal 17-59 [facility] [facility] Comment on above: Performed By: #### C MP #### [facility] [address] [place] [address] Dr. Jorge Dominguez Bilirubin [Mass/Vol] 0.6 mg/dL Normal 0.2-1.3 [facility] Comment on above: Performed By: #### C MP #### [facility] [address] [place] [address] Dr. Jorge Dominguez Calcium [Mass/Vol] 9.4 mg/dL Normal 8.4-10.2 [facility] Comment on above: Performed By: #### C MP #### [facility] [address] [address] [address] Jorge Dominguez Chloride [Moles/Vol] 103 mmol/L Normal 98-107 [facility] Comment on above: Performed By: #### C MP #### [facility] [address] [address] [address] Jorge Dominguez CO2 [Moles/Vol] 26.2 mmol/L Normal 22.0-30.0 [facility] Comment on above: Performed By: #### C MP #### [facility] [address] [address] [address] Jorge Dominguez Creatinine [Mass/Vol] 1.24 mg/dL Normal 0.66-1.25 [facility] Comment on above: Performed By: #### C MP #### [facility] [address] [address] [address] Jorge Dominguez EGFR-AF FIJIAN >60 Normal >=60 [facility] Comment on above: Performed By: #### C MP #### [facility] [address] [address] [address] Jorge oDminguez EGFR-NON AF FIJIAN >60 Normal >=60 [facility] Comment on above: Performed By: #### C MP #### [facility] [address] [place] [address] Dr. Jorge Dominguez Globulin (S) [Mass/Vol] 3.5 g/dL Normal [facility] Comment on above: Performed By: #### C MP #### [facility] [address] [place] [address] Dr. Jorge Dominguez Glucose [Mass/Vol] 160 mg/dL Critically high 74-106 [facility] Comment on above: Performed By: #### C MP #### [facility] [address] [place] [address] Dr. Jorge Dominguez Potassium [Moles/Vol] 3.9 mmol/L Normal 3.4-5.0 [facility] Comment on above: Performed By: #### C MP #### [facility] [address] [place] [address] Dr. Jorge Dominguez Protein [Mass/Vol] 7.8 g/dL Normal 6.1-8.2 [facility] Comment on above: Performed By: #### C MP #### [facility] [address] [place] [address] Dr. Jorge Dominguez Sodium [Moles/Vol] 140 mmol/L Normal 137-145 [facility] Comment on above: Performed By: #### C MP #### [facility] [address] [place] [address] Dr. Jorge Dominguez Urea nitrogen [Mass/Vol] 13.0 mg/dL Normal 9.0-20.0 [facility] Comment on above: Performed By: #### C MP #### [facility] [address] [place] [address] [address] [address] Jorge Dominguez Urea nitrogen/Creatinine [Mass ratio] 10.5 mg/mg Normal [facility] Comment on above: Performed By: #### C MP #### [facility] [address] [place], [place] [address] Dr. Jorge Dominguez T-Spoton 01-18-2019 T-Spot. TB Test Normal [facility] Comment on above: Result Comment: [facility] [address] [place] [address] (NOTE) T-SPOT.TB Test Results --------- T-SPOT TB [...] R UBI, JOSEY, RADHA, VZI, TSPOT #### [id number] [place] [address] Firewall Security Engineer: Santy Armstrong MD Measles (Rubeola) Imon 01-16 Measles (Rubeola) Im 5.30 Normal >1.09 [facility] Comment on above: Result Comment: Interpretation: IMMUNE Reference Range: <0.91 Not Immune 0.91-1.09 Equivocal >1.09 Immune Performed By: #### R UBI, JOSEY, RADHA, VZI, TSPOT #### [facility] [address] [place] [address] Firewall Security Engineer: Santy Armstrong MD Mumps,Immun,Abon 01-16-2019 Mumps,Immun,Ab 0.83 Low >1.09 [facility] Comment on above: Result Comment: Interpretation: Not Immune Reference Range: <0.91 Not Immune 0.91-1.09 Equivocal >1.09 Immune Performed By: #### R UBI, JOSEY, RADHA, VZI, TSPOT #### [address] [address] Firewall Security Engineer: Santy Armstrong MD VZ Immunityon 01-16-2019 VZ Immunity 1.15 Normal >1.09 [facility] Comment on above: Result Comment: Interpretation: IMMUNE Reference Range: <0.91 Not Immune 0.91-1.09 Equivocal >1.09 Immune Performed By: #### R UBI, JOSEY, RADHA, VZI, TSPOT #### [address] [address] Firewall Security Engineer: Santy Armstrong MD Rubella Ab, IgGon 01-14-2019 Rubella Ab, IgG 43.3 IU/mL Normal [facility] Comment on above: Result Comment: REFERENCE RANGE: <5.0 NON-REACTIVE (non-immune) 5.0 TO 9.9 EQUIVOCAL >=10.0 REACTIVE (immune) Performed By: #### R UBI, JOSEY, RADHA, VZI, TSPOT #### [facility] [employer] [address] [place] [address] Firewall Security Engineer: Santy Armstrong MD Rubella antibody, IgGon 01-04 Rubella virus IgG Ql (S) 43.3 IU/mL [place] Comment on above: REFERENCE RANGE: <5.0 NON-REACTIVE (non-immune) 5.0 TO 9.9 EQUIVOCAL >=10.0 REACTIVE (immune) Vital Signs Date Time Vital Sign Value Performing Clinician Donavan cole 06-21-2023 13:17-0400 Blood Pressure Location Enrique PATELL [facility] 06-21-2023 13:17-0400 Diastolic blood pressure 84 mm[Hg] Enrique NILL [facility] 06-21-2023 13:17-0400 Heart rate 76 /min Enrique NILL [facility] [place] 06-21-2023 13:17-0400 Respiratory rate 16 /min Enrique NILL [facility] [place] 06-21-2023 13:17-0400 Systolic blood pressure 120 mm[Hg] Enrique NILL [facility] [place] Encounters Encounter Date Encounter Type Care Provider Facility Start: 06-21-2023 End: 06-21-2023 ambulatory Enrique SÁNCHEZ Facility:[facility] Start: 06-21-2023 End: 06-21-2023 Patient encounter procedure Enrique Goodson GONZALO [facility] Start: 06-01-2023 Office outpatient ne w 30 minutes Alyse Sanford Other [facility] Office Start: 05-18-2023 ambulatory Enrique SÁNCHEZ Facility:[facility] Start: 10-20-2021 End: 10-20-2021 Patient encounter procedure CLEO HEALY [facility] [place] Start: 07-08-2021 End: 07-08-2021 ambulatory CASSANDRA SAAVEDRA Facility:[facility] Start: 02-22-2021 End: 02-23-[address] KERA MARTINEZ Facility:[facility] Start: 02-17-2021 End: 02-17-[address] ARAVIND EDMONDS Facility:[facility] Start: 01-14-2019 End: 01-15-2019 Patient encounter procedure ENRIQUE RIETHMILLER [facility] Start: 01-14-2019 End: 01-14-2019 Subsequent hospital [...] 11-04-2018 Influenza vaccination Flu vaccine (# 1) [place], [place] Start: 2010 Lipid screen Lipid screen [place], [place] Start: 1989 DTaP/Tdap/Td vaccine (1 - Tdap) DTaP/Tdap/Td vaccine (1 - Tdap) [place], [place] Start: 1985 HIV screen HIV screen [place], [place] End: 01-14-2019 Mumps Antibody, IgG Mumps Antibody, IgG Lab Routine Once for 1 Occurrences starting 01/14/2019 until 01/14/2019 [place], [place] Comment on above: Once for 1 Occurrenc es starting 01/14/2019 until 01/14/2019 Mumps Antibody, IgG Mumps Antibo dy, IgG Lab Routine 01/14/2019 3:03 PM EST [place], [place] End: 01-14-2019 Rubeola Antibody, IgG Rubeola Antibody, IgG Lab Routine Once for 1 Occurrences starting 01/14/2019 until 01/14/2019 [place] Comment on above: Once for 1 Occurrenc es starting 01/14/2019 until 01/14/2019 Rubeola Antibody, IgG Rubeola An tibody, IgG Lab Routine 01/14/2019 3:03 PM [place], [place] End: 01-14-2019 Tb antigen response gamma interferon t-cell susp T-Spot TB Test Lab Routine Once for 1 Occurrences starting 01/14/2019 until 01/14/2019 [place] Comment on above: Once for 1 Occurrenc es starting 01/14/2019 until 01/14/2019 Tb antigen response gamma interferon t-cell susp T-Spot TB Test Lab Routine 01/14/2019 3:03 PM [place], [place] End: 01-14-2019 Varicella Zoster Antibody, IgG Varicella Zoster Antibody, IgG Lab Routine Once for 1 Occurrences starting 01/14/2019 until 01/14/2019 [place] Comment on above: Once for 1 Occurrenc es starting 01/14/2019 until 01/14/2019 Varicella Zoster Antibody, IgG Varicella Zoster Antibody, IgG Lab Routine 01/14/2019 3:03 PM [place] Immunizations Immunization Date Immunization Notes Care Provider [facility] 12-28-2022 influenza virus vaccine, unspecified formulation Enrique SÁNCHEZ [facility] 03-03-2021 SARS-CoV-2 (COVID-19 ) mRNA-1273 vaccine Enrique GONZALO [facility] 02-03-2021 SARS-CoV-2 (COVID-19 ) mRNA-1273 vaccine Enrique SÁNCHEZ [facility] Comment on above: Result Comment: 2023: [id number] Payers Date Payer Category Payer Unknown [id number] [id number] [id number] 1970 Unknown [id number] [id number] [id number] 1970 Unknown [id number] [id number] [id number] 1970 Unknown [id number] 1959 Unknown [id number] 1959 Unknown [id number] Social History Date Type Detail Facility Start: 05-21-2014 Tobacco smoking status NHIS Never smoker [place], [place] Start: 05-21-2014 Alcohol intake 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) [place] Sex Assigned At Not on file [place] Start: 02-22-2021 Light tobacco smoker (finding) [facility] Male [facility] Start: *Tobacco [place] Start: 06-21-2023 Tobacco smoking status Occasional tobacco smoker (finding) [facility] [place] Tobacco smoking status Never [facility] [place] Functional Status Date Assessment Result Facility 06-21-2023 Functional Status N/A [facility] Clinical Note 06-21-2023 Note Date & [...] (COVID-19) mRNA-1273 vaccine 02/03/2021 Recorded 2023-05-22: [id number] [facility] Comment on above: Result Comment: Elec tronically Signed By: GONZALO PERSON, Enrique Mcmahon\Date and Time Signed: 06/21/23 14:25 EDT Evaluation + Plan note Note Date & Type Note Facility Evaluation + Plan note No data available for this section [facility] Hospital Discharge instructions Note Date & Type Note Facility Hospital Discharge instructions No data available for this section [facility] Progress note Note Date & Type Note Facility Progress note No data available for this section [facility] Advance Directives No Advanced Directives Records FoundDocuments on File Type Date 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 Advance Directives and Living Will 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 Summary Purpose Family History No Family History Records FoundNo Family History Records Found No data available for this section No Family History Records Found Additional Source Comments (unrecognized sect ion and content) No Status Records FoundNo Status Records FoundNo Status Records Found INFORMATION SOURCE (unrecogn ized section and content) DATE CREATED AUTHOR 01/18/2019 [facility] DATE CREATED AUTHOR AUTHOR'S ORGANIZ ATION 07/12/2021 [facility] DATE CREATED AUTHOR AUTHOR'S BRODERICK SELBY 08/11/2023 [facility] Care Team (unrecognized sect ion and content) Personnel Name: YOLANDA OLGUIN MD Address: [address] [place] [address] Personnel Name: Adelfo Garibay MD Address: Address: [facility] FOR RECORDS PERTAINING TO PATIENTS WHO [...] BE BASED ON THE PRIMARY CLINICAL RECORDS. [facility] [employer] [facility]. provides no warranty or guarantee of the accuracy or completeness of information in this document.
[2024-05-29 09:12] LABS: Alanine Aminotransferase 76 U/L (16-63); Albumin Globulin Ratio 1.4; Albumin Level 4.3 g/dL (3.4-5.0); Alkaline Phosphatase 58 U/L (46-116); Anion Gap 11.9; Aspartate Amino Transferase 44 U/L (15-37); BUN Creatinine Ratio 14.2; Bilirubin Total 0.8 mg/dL (0.2-1.0); Calcium 9.3 mg/dL (8.5-10.1); Carbon Dioxide 28.1 mmol/L (21.0-32.0); Chloride 104 mmol/L (98-107); Estimated GFR (African America >60 (>=60 mL/min/1.73m^2); Estimated GFR (Non-African Ame >60 (>=60 mL/min/1.73m^2); Free T3 3.06 pg/mL (2.18-3.98); Globulin 3.1 g/dL; Glucose 99 mg/dL (74-106); Sodium 140 mmol/L (136-145); Thyroid Stimulating Hormone 1.872 uIU/mL (0.358-3.740); Total Protein 7.4 g/dL (6.4-8.2)
[2024-05-30 05:12] LABS: HBsAg Screen Negative (Negative); HCV Ab Non Reactive (Non Reactive); Hep A Ab, IgM Negative (Negative); Hep B Core Ab, IgM Negative (Negative)
== END 2024-05-29 08:20 | disposition home or self-care (01) ==
LOC: LAB 08:20
PROVIDERS: PCP Family Medicine; Visit Provider Family Medicine
DX: R89.9 Unspecified abnormal finding in specimens from other organs, systems and tissues (principal)
CPT/HCPCS: 36415; 80053; 80074; 84436; 84443; 84481

== ENCOUNTER 2024-07-04 10:37 | Outpatient (OUT) | payer BC, SELFPAY ==
[2024-07-05 05:07] LABS: HBsAg Screen Negative (Negative); HCV Ab Non Reactive (Non Reactive); Hep A Ab, IgM Negative (Negative); Hep B Core Ab, IgM Negative (Negative)
== END 2024-07-04 10:38 | disposition home or self-care (01) ==
LOC: LAB 10:38
PROVIDERS: PCP Family Medicine; Visit Provider Family Medicine
DX: R74.8 Abnormal levels of other serum enzymes (principal)
CPT/HCPCS: 36415; 80074